=== PATIENT | female | born 1995 | race Caucasian/White ===

== ENCOUNTER → 2017-07-18 16:04 | Outpatient (CLI) | payer OTHER, SELFPAY ==
[2017-07-18 18:02] LABS: hCG Titer Quant., Serum 183 mIU/mL (<9 non-preg)
== END ==
PROVIDERS: Family Provider Family Medicine; PCP Family Medicine; Visit Provider Nurse Practitioner Women's Health
DX: Z34.90 Encounter for supervision of normal pregnancy, unspecified, unspecified trimester (principal)
CPT/HCPCS: 84702

== ENCOUNTER 2017-07-19 11:00 | Outpatient (RCR) | payer OTHER, SELFPAY ==
--- NOTE | 2017-06-08 10:55 | HP.PTEVAL_ITS ---
Patient's Visit Information JANICE GOODMAN is a 21 year old F referred to Physical Therapy by Manjeet Smart with a diagnosis of B PFitis, L knee pain.. Date of Evaluation: 06/08/17 Physical Therapist: Taj Ross DPT, OC - Visit Plan Frequency: 3x /Week Duration: 4-6 Weeks Plan: 3x/week for 2-3 to teach ITB stretch, hip flexor stretch, core and hip stab strength adn progress to HEP with pics. Pt to carry baby on opposite hip and monitor effects. Plan for patient to do stretch and strength at home after 2-3 weeks of PT adn f/u as needed. - Subjective Subjective: Has pain in L knee cap and bottom of L foot and HS. Mostly during the day adn worsens with activity, gone at rest. Sleep is good. Pain is daily and for over a year for knee, foot came back a month ago but has been group home project. Activities are normal, does not work outside of home but has baby. No exercises except stretching foot and HS - Pain L knee Pain Intensity (Out of 10): 5 Pain Intensity Range: 0, 8 L foot heel Pain Intensity (Out of 10): 6 Pain Intensity Range: 0, 8 - Objective Walks I without gait deviation but obvious weakness in trunk and hips. Holds baby on L hip all the time. Steps reciprocal with adduction at the hips slightly. Transfers I. Full aROM at hips and knees, mildly hypo tonic. Tightness present in gastroc and soleus and HS L >R and hip flexors and slightly in ITB. Weakness present in hips flexion 4, abd 3+, ext rotation, 3 + IR, ext 3+, core 3 extensors adn flexors. reflexes patella and achilles 2/3. sensation LE WNL to gross light touch. LB AROM WNL and painfree. Tender to touch maximally in B calcaneal PF attachments. Also with patellar grind in L knee adn mildly in L HS body. - Goals Goal 1:: I approp HEP for flex adn core/LE strength to limit pain. Goal Time Frame: 4-6 Weeks Goal 2:: pain in knee 50% improved adn PF 50% improved to 3/10 at worst . Goal Time Frame: 4-6 Weeks Goal 3:: Walk to do home cleaning without increased pain. Goal Time Frame: 4-6 Weeks - Rehabilitation Potential Physical Therapy Diagnosis: B PFitis and L knee pain from wekaness and tightness. Rehabilitation Potential: Fair - Anticipated Interventions Patient/Client Instruction: Educate patient on: Condition For the Purpose of:: To decrease pain Therapeutic Exercise to Include: Strength training, Flexibilty training, Dynamic Lumbar Stabilization For the Purpose of:: To decrease pain, To improve muscle performance and motor function, To improve ability of physical actions for home/community/work/leisure Thank you for the opportunity to evaluate your patient. For Medicare and Medicare HMO plans, please review the plan of care and approve it. It will need to be FAXED BACK to us at [phone] for Medicare purposes. Please let me know if there are questions or concerns regarding this plan of care. Physician Signature: Date:
--- NOTE | 2017-06-23 07:27 | HP.PTEVAL2_ITS ---
Patient's Visit Information JANICE GOODMAN is a 21 year old F referred to Physical Therapy by RAMOS Green with a diagnosis of B plantar fibromytosis and bilateral calcaneal heel spuring.. Date of Evaluation: 06/20/17 Physical Therapist: Dilip Kohli - Visit Plan Frequency: 2x /Week Duration: 4 Weeks Plan: Start with graston to bilateral plantar fascia, bilateral achilles tendon , aggressive fascial stretching and G/S complex stretching. Progress to HEP. - Subjective Subjective: Pt. is here today for her initial evaluation with diagnosis of bilateral plantar fibromatosis, bilateral calcaneal heal spuring and bilateral foot pain. This patient is known to this PT from previous PT episodes. Pt. reports having increased bilateral foot pain recently. She continues to wear her orthotics, but seems like her pain is increasing. Pt. is also being seen for knee and hip pain as well. Pt. reports increased pain with initial steps after sitting or sleeping and increased pain throughout the day. She is wearing proper foot wear with orthotics currently. Pt. reports pain starting at heel radiating down through bottom of foot. Pt. reports occassionally stretching. Pt. denies N/T in either LE. She has difficulty keeping up with her infant baby and work related activities secondary to pain. Increased pain with walking and descending steps. Decreased pain with rest. Pt. is hopeful to reduce symptoms in order to get back to all PLOF and recreational activities without issues. - Pain R heel and plantar surface of foot Intensity: 4 Pain Intensity Range: 2, 8 L heel and plantar surface of foot Intensity: 4 Pain Intensity Range: 2, 8 - Objective Objective: POSTURE: Pt. has slight pes planus in stance. Pt. has equal wt. shift between bilateral LEs. Pt. has normal achilles positioning. PALPATION: Pt. has increased pain to calcaneus medial and lateral of bilateral LES. Pt. has no pain at achilles tendon. Pt. has increased pain at plantar fascia origin and throughout plantar surface of foot. NEUROLOGICAL: Pt. has normal sensation througout bilateral LEs. Pt. has 2+ achilles and patellar DTR bilaterally. Pt. is able to rise on heels and toes without issues. Pt. has no visible weakness noted. ROM: R ankle- DF 11deg, PF 49deg, normal EVR and INV. R knee within normal ranges. L ankle- DF - 10deg, PF 52deg, normal EVR/INV. Normal knee ROM. MMT: Pt. has 5-/5 throughout R and L ankle. Marked instability in SLS ea. 5-/5 of bilateral Knee strength; hip- being addressed by alternate episode of PT currently. GAIT: Pt. has slight early heel off with gait, bilaterally. Pt. reports increased pain as she goes into forefoot rocker moment. STARIS: Pt. has increased symptoms with descending stairs with early heel off with descending. + windlass testing bilaterally loaded and unloaded. - Goals Goal 1:: Pt. to be I with HEP. Goal Time Frame: 4-6 Weeks Goal 2:: Pt. to have increased bilateral DF ROM by 5-8deg reducing stress applied to plantar fascia with ambulation. Goal Time Frame: 4-6 Weeks Goal 3:: Pt. ambulate unlimited distances without increase in B foot pain allowing for increased quality of life. Goal Time Frame: 4-6 Weeks Goal 4:: Pt. to negotiate steps without increase in symptoms allowing for increased ability to negotiate in home. Goal Time Frame: 4-6 Weeks Goal 5:: Pt. to resume all recreational walking and activities without increase in symptoms. Goal Time Frame: 4-6 Weeks - Rehabilitation Potential Rehabilitation Potential: Good - Anticipated Interventions Patient/Client Instruction: Educate patient on: Condition, Plan of Care, Risk Factors, Benefits of Fitness Program For the Purpose of:: To improve health and function, To foster healthy habits, To improve decision making, To facilitate caregiver knowledge, To improve self management, To prevent re-injury, To improve ability to perform tasks related to life management, To improve tolerance to ADL's Therapeutic Exercise to Include: Strength training, Agility training, Postural training, Flexibilty training, Passive ROM, Active ROM For the Purpose of:: To decrease pain, To increase ROM, To improve nutrient delivery to tissue, To increase oxygenation perfusion, To improve muscle performance and motor function, To improve ability to perform ADL's, To increase tolerance to activity/condition/position, To improve health of tissue, To decrease soft tissue restriction, To increase flexibility/ROM Manual Therapy Techniques to Include: Mobilization, Functional dry needling Comment: grasashley, deep friction For the Purpose of:: To decrease pain, To increase ROM, To improve nutrient delivery to tissue, To increase oxygenation perfusion, To improve muscle performance and motor function, To improve health of tissue, To decrease soft tissue restriction Iontophoresis (with Dexamethozone, with Acetic acid): Yes - possibly if not improving with stretching and graston For the Purpose of:: To decrease pain, To decrease swelling/inflammation, To increase ROM Thank you for the opportunity to evaluate your patient. For Medicare and Medicare HMO plans, please review the plan of care and approve it. It will need to be FAXED BACK to us at [phone] for Medicare purposes. Please let me know if there are questions or concerns regarding this plan of care. Physician Signature: Date:
--- NOTE | 2017-07-05 12:17 | HP.PTREVAL_ITS ---
CELESTE Hernandez RICHARD C It has been my pleasure to treat JANICE GOODMAN over the last 8 visits for B PFitis, L knee pain.. Please see the progress note below for an update on the physical therapy plan of care! Subjective: Upper leg is better in duration and intensity and frequency. Still gets it with weather changes. Aches in the L knee 11/15. Uses oil but not taking pain meds for it. Stretching and strengthening at home daily to every other day. Sleep is good. Dr. [place] on 07/19/17 Objective/Function: Still very weak in hips, emphasized long-term importance of strength to patient. Still positive L patellar grind but improving. No antalgia in gait but lots of slop at knees. Full aROM B knees and hips. improving flexibility in ITB and quads. Plan Plan: 3 more visits to teach WB hip and knee strength to tolerance with pics for HEP(inchworms, dips etc) Goals Goal 1:: I approp HEP for flex adn core/LE strength to limit pain. Goal Time Frame: 4-6 Weeks Goal Progress: Goal Met Goal 2:: pain in knee 50% improved adn PF 50% improved to 3/10 at worst . Goal Time Frame: 4-6 Weeks Goal Progress: Goal Met Goal 3:: Walk to do home cleaning without increased pain. Goal Time Frame: 4-6 Weeks Goal Progress: Goal Met Anticipated Interventions Patient/Client Instruction: Educate patient on: Condition For the Purpose of:: To decrease pain Therapeutic Exercise to Include: Strength training, Flexibilty training, Dynamic Lumbar Stabilization For the Purpose of:: To decrease pain, To improve muscle performance and motor function, To improve ability of physical actions for home/community/work/leisure Please do not hesitate to contact me at [phone] by phone or Fax: if you have questions or concerns regarding this new plan of care! Sincerely, Taj Ross, GALET, OC
--- NOTE | 2017-07-19 11:46 | HP.PTDCSUM ---
HP - PT D/C Summary It has been my pleasure to treat JANICE GOODMAN under orders from CELESTE Hernandez RICHARD C for the diagnosis of B PFitis, L knee pain. for a total of 11 visit(s). Discharge Date: 07/19/17 Please see the following information for a summary of their discharge status. - Subjective Subjective: is starting. Better knee and upper eg. No pain in 2 weeks. Been doing exercises and will try to keep it up. Still feels a little weak and can continue strengthening herself. Foot is still 6-7/10. Been wearing shoes. Sitting too long is problematic. Morning stil hurts. stretching immediately. No tbeen faithful with night splint. Orthoitcs 100%. . - Pain L knee Pain Intensity (Out of 10): 0 L foot heel Pain Intensity (Out of 10): 6 - Overall Improvement % Improvement: 90 - Objective Objective/Function: Pt walking without antalgia today. Has good ROM in LE joints and is I with continued home stretch and strengthening. Strength in LE hips and knees is 4- hips and 4 knees. OVERALL DOING CONSIDERABLY BETTER. READY TO BE DONE WITH PT AND FOCUS ON FARM. WILL CONTINUE HEP - Goals Goal 1:: I approp HEP for flex adn core/LE strength to limit pain. Goal Progress: Goal Met Goal 2:: pain in knee 50% improved adn PF 50% improved to 3/10 at worst . Goal Progress: Goal Met Goal 3:: Walk to do home cleaning without increased pain. Goal Progress: Goal Met - Plan Plan: D/C TO hep - D/C Information Discharge Comments: Pt doing well with knee and upper leg pain. Foot pain continues to be a problem and conservative treatment she is I with but will limit options here. Will continue HEP for stretching and strengthening. If there are questions or concerns regarding this patient's physical therapy, please feel free to call me at [phone]. Thank you for the referral of this patient. Sincerely, Taj Ross, DPT, OC
--- NOTE | 2017-07-19 11:52 | HP.PTDCS(2) ---
HP - PT D/C Summary (2) It has been my pleasure to treat JANICE GOODMAN under orders from CELESTE Hernandez RICHARD C for the diagnosis of B plantar fibromytosis and bilateral calcaneal heel spuring. for a total of 9 visit(s). Discharge Date: 07/19/17 Please see the following information for a summary of their discharge status. - Subjective Subjective: Foot is still hurting. Up to 7/10 intermittently. Worse with sitting too long and first thing upon arising. Is wearing night splint but hard to keep on. Doing stretches I at home. Is now . - Overall Improvement % Improvement: 10 - Objective Objective/Function/Assessment: Good ROM and no antalgia in gait. Tenderness persists B in heel. OVERALL , SLIGHTLY BETTER BUT NOT SIGNIFICANTLY. - Goals Patient Goals: Improve Mobility, Decrease Pain, Walk Normal, Improve ROM, Other Other Goals: get back to all recreational activities without pain. Goal 1:: Pt. to be I with HEP. Goal Progress: Goal Met Goal 2:: Pt. to have increased bilateral DF ROM by 5-8deg reducing stress applied to plantar fascia with ambulation. Goal Progress: Goal Met Goal 3:: Pt. ambulate unlimited distances without increase in B foot pain allowing for increased quality of life. Goal Progress: Not Progressing Goal 4:: Pt. to negotiate steps without increase in symptoms allowing for increased ability to negotiate in home. Goal Progress: Not Progressing Goal 5:: Pt. to resume all recreational walking and activities without increase in symptoms. Goal Progress: Not Progressing - Plan Plan: D/C, Pt will continue HEP and f/u with foot doctor Tuesday. - D/C Information Discharge Comments: Back to doctor for other medical steps. Patient is now eliminating option of iontophoresis(says she is 4 weeks and newly known to her) If there are questions or concerns regarding this patient's physical therapy, please feel free to call me at [phone]. Thank you for the referral of this patient. Sincerely, Taj Ross, DPT, OC
== END 2017-07-19 14:24 | disposition home or self-care (01) ==
LOC: PT 11:00
PROVIDERS: Family Provider Family Medicine; PCP Family Medicine; Visit Provider Family Medicine
DX: M72.2 Plantar fascial fibromatosis (principal); M77.31 Calcaneal spur, right foot; M77.32 Calcaneal spur, left foot; M79.671 Pain in right foot; M79.672 Pain in left foot; M21.6X1 Other acquired deformities of right foot; M21.6X2 Other acquired deformities of left foot
CPT/HCPCS: 97033; 97110; 97140; 97162; 97530

== ENCOUNTER → 2017-07-20 16:03 | Outpatient (CLI) | payer OTHER, SELFPAY ==
[2017-07-20 18:19] LABS: hCG Titer Quant., Serum 493 mIU/mL (<9 non-preg)
== END ==
PROVIDERS: Family Provider Family Medicine; PCP Family Medicine; Visit Provider Nurse Practitioner Women's Health
DX: Z34.90 Encounter for supervision of normal pregnancy, unspecified, unspecified trimester (principal)
CPT/HCPCS: 36415; 84702

== ENCOUNTER → 2017-08-09 16:17 | Outpatient (CLI) | payer OTHER, SELFPAY ==
[2017-08-09 21:48] LABS: Chlamydia Trachomatis by PCR Negative (Negative); Neisserai gonorrhoeae by PCR Negative (Negative); Probe Check PASS; Sample Adequacy Control PASS; Specimen Processing Control PASS
== END ==
PROVIDERS: Family Provider Family Medicine; PCP Family Medicine; Visit Provider Obstetrics & Gynecology
DX: Z34.90 Encounter for supervision of normal pregnancy, unspecified, unspecified trimester (principal)
CPT/HCPCS: 87086; 87491; 87591

== ENCOUNTER 2017-09-01 11:30 | Outpatient (RCR) | payer OTHER, SELFPAY ==
--- NOTE | 2017-07-27 14:02 | HP.PTEVAL_ITS ---
Patient's Visit Information JANICE GOODMAN is a 21 year old F referred to Physical Therapy by RAMOS CHESTER with a diagnosis of B plantarfascitis. Date of Evaluation: 07/27/17 Physical Therapist: Cedric Love PT, - Visit Plan Frequency: 2x /Week Duration: 4 Weeks Plan: B foot DTR, stretching, PROM and mobilizations to ankle/foot, bike, and HEP - Subjective Subjective: Pt reports she has had B foot pain for over a year. Pt reports she has had PT in the past, but it only helps temporarily. Pt reports he Dr is now going to fit her for orthotics, and wants her to cont with PT. R foot is worse than L. Pt reports she has had xrays which reveal heal spurs on B feet, but pt notes she is unable to have surgery at this time secondary to being . No T or N in feet. Pt reports she doesnt wear shoes in the house, and is going to try to wear them more often to help with the pain. 5/10 at rest, 10/10 by the end of the day. - Pain B feet Pain Intensity (Out of 10): 5 Pain Intensity Range: 10 - Objective Neuro: B LE sensation is WNL at this time. Palpation: Pt is very tender along the ant portion of the heal. Very tender along the PF. ROM: R ankle DF= 12, PF = 60; L ankle DF= 9, PF= 60. MMT: B ankles 5/5 throughout. Gait: Pt ambulates with early pronation during stance phase. Pt lacks HS - Goals Goal 1:: Decrease B foot pain x 50% to aid with tosha for ambulation Goal Time Frame: 2-4 Weeks Goal 2:: Increase B ankle DF ROM x 5 degrees to aid with restoring nornal gait pattern. Goal Time Frame: 2-4 Weeks Goal 3:: I with HEP Goal Time Frame: 2-4 Weeks - Rehabilitation Potential Physical Therapy Diagnosis: B foot pain, diff with prolonged walking, and limited ankle DF ROM secondary to B LE plantarfascitis. Rehabilitation Potential: Good - Anticipated Interventions Patient/Client Instruction: Educate patient on: Condition, Plan of Care For the Purpose of:: To improve self management Manual Therapy Techniques to Include: Massage, Mobilization, Soft tissue mobilization For the Purpose of:: To decrease pain, To increase ROM Cryotherapy (ice pack, ice massage): Yes Thermo therapy (hot pack): Yes Thank you for the opportunity to evaluate your patient. For Medicare and Medicare HMO plans, please review the plan of care and approve it. It will need to be FAXED BACK to us at [phone] for Medicare purposes. Please let me know if there are questions or concerns regarding this plan of care. Physician Signature: Date:
--- NOTE | 2017-09-01 11:50 | HP.PTDCSUM ---
HP - PT D/C Summary It has been my pleasure to treat JANICE GOODMAN under orders from RAMOS ALONSO, for the diagnosis of B plantarfascitis for a total of 9 visit(s). Discharge Date: Please see the following information for a summary of their discharge status. - Subjective Subjective: Pt reports no pain today. He has been having her rub them out which is helping - Pain B feet Pain Intensity (Out of 10): 0 - Objective Objective/Function: Pain is now 0/10. pt is I with HEP. B ankle DF ROM= 15 degrees. Rx goals achieved - Goals Goal 1:: Decrease B foot pain x 50% to aid with tosha for ambulation Goal Progress: Goal Met Goal 2:: Increase B ankle DF ROM x 5 degrees to aid with restoring nornal gait pattern. Goal Progress: Goal Met Goal 3:: I with HEP Goal Progress: Goal Met - Plan Plan: Discharged - D/C Information If there are questions or concerns regarding this patient's physical therapy, please feel free to call me at [phone]. Thank you for the referral of this patient. Sincerely, Cedric Love, PT,
== END 2017-09-01 16:14 | disposition home or self-care (01) ==
LOC: PT 11:30
PROVIDERS: Family Provider Family Medicine; PCP Family Medicine
DX: M72.2 Plantar fascial fibromatosis (principal); M77.31 Calcaneal spur, right foot; M77.32 Calcaneal spur, left foot; M79.671 Pain in right foot; M79.672 Pain in left foot; M21.6X2 Other acquired deformities of left foot
CPT/HCPCS: 97110; 97140; 97162; 97530

== ENCOUNTER → 2017-11-04 12:42 | Outpatient (CLI) | payer OTHER, SELFPAY ==
--- NOTE | 2017-11-04 12:44 | US_ITS ---
STUDY: SECOND AND THIRD TRIMESTER OBSTETRICAL ULTRASOUND REASON FOR EXAM: Female, 22 years old. Routine survey. LMP: June 20, 2017. TECHNIQUE: Transabdominal and Transvaginal PRIOR ULTRASOUND: None. FINDINGS: There is a single intrauterine fetus. The fetus is in a cephalic presentation. There is demonstrated cardiac activity with a heart rate of 147 bpm. There is a normal amniotic fluid volume. The largest amniotic fluid pocket measures 3.7 cm x 2.2 cm. The amniotic fluid index (LEONIDES) is normal. The placenta is fundal in location. There are Grade 1 placental changes. The cervix measures 4.1 cm in length. The adnexal regions are not visualized. BIOMETRY: BPD: 4.54 cm: 19 weeks, 6 days HC: 16.63 cm: 19 weeks, 3 days AC: 13.73 cm: 9 weeks, 2 days FL: 3.08 cm: 19 weeks, 4 days CI: 79% FL/BPD: 68% FL/HC: FL/AC: 22% HC/AC: 1.21 age by current US: 19 weeks, 4 days. DEBBY by current US: March 27, 2018. Estimated weight: 289 grams, +/- 42 grams, 34 %. Age by LMP: 19 weeks, 4 days. DEBBY by LMP: March 27, 2018. ANATOMY: Gender: Male Cranium: Normal lateral ventricles. Normal choroid plexus. Normal cerebellum. Normal cisterna magna. Normal face, nose and lips. Chest: Normal 4-chamber heart. Abdomen/Pelvis: Normal diaphragm. Normal stomach. Normal abdominal wall. Normal cord insertion. Normal 3 vessel cord. Normal kidneys. Normal bladder. Spine: Normal cervical spine. Normal thoracic spine. Normal lumbar spine. Normal sacrum. Extremities: Normal bilateral upper extremities. Normal bilateral lower extremities. US/OB Anatomy Scan IMPRESSION: Single live intrauterine gestation with a mean gestational age of 19 weeks and 4 days. Electronically Signed: Jitendra Chester MD at 14:53 EDT Tel [phone], Service support ,
== END ==
PROVIDERS: Family Provider Family Medicine; PCP Family Medicine; Visit Provider Obstetrics & Gynecology
DX: Z34.90 Encounter for supervision of normal pregnancy, unspecified, unspecified trimester (principal)
CPT/HCPCS: 76805

== ENCOUNTER → 2018-02-07 13:22 | Outpatient (CLI) | payer OTHER, SELFPAY ==
--- NOTE | 2018-02-07 13:30 | US_ITS ---
STUDY: SECOND AND THIRD TRIMESTER OBSTETRICAL ULTRASOUND - LIMITED REASON FOR EXAM: Female, 22 years old. FGSFetal growthSReason for Exam-OB (US) LMP: PRIOR ULTRASOUND: None. TECHNIQUE: Transabdominal TECHNICAL QUALITY: Adequate. FINDINGS: There is a single intrauterine fetus. The fetus is in a cephalic presentation. There is demonstrated cardiac activity with a heart rate of 144 bpm. There is a normal amniotic fluid volume. The largest amniotic fluid pocket measures 5.2 cm. The amniotic fluid index (LEONIDES) is 9.8 cm. The placenta is posterior in location and is not low lying. There are Grade 1 placental changes. The cervix measures 4.7 cm in length. BIOMETRY: BPD: 7.2: 29 weeks, 2 days HC: 28.0: 30 weeks, 6 days AC: 25.5: 29 weeks, 5 days FL: 6.0: 31 weeks, 4 days Age by LMP: 33 weeks, 1 days. DEBBY by LMP: 03/27/2018. age by prior US: 30 weeks, 3 days. DEBBY by prior US: 04/15/2018. age by current US: 33 weeks, 1 days. DEBBY by current US: 03/27/2018. Estimated weight: 1552 grams, +/- 227 grams, 2 percentile. US/OB Limited With Biometrics IMPRESSION: Estimated weight: 1552 grams, +/- 227 grams, 2 percentile. Electronically Signed: Dana Wright MD at 13:47 EDT Tel , Service support ,
== END ==
PROVIDERS: Family Provider Family Medicine; PCP Family Medicine; Visit Provider Obstetrics & Gynecology
DX: O09.93 Supervision of high risk pregnancy, unspecified, third trimester (principal); D68.61 Antiphospholipid syndrome; Z3A.00 Weeks of gestation of pregnancy not specified
CPT/HCPCS: 76816

== ENCOUNTER → 2018-03-15 17:21 | Outpatient (CLI) | payer OTHER, SELFPAY ==
[2018-03-15 21:24] LABS: Group B Strep DNA By PCR Negative (Negative); Internal Control PASS; Probe Check PASS; Specimen Processing Control PASS
== END ==
PROVIDERS: Family Provider Family Medicine; PCP Family Medicine; Referring Provider Obstetrics & Gynecology; Visit Provider Obstetrics & Gynecology
DX: O09.90 Supervision of high risk pregnancy, unspecified, unspecified trimester (principal); Z3A.00 Weeks of gestation of pregnancy not specified
CPT/HCPCS: 87081; 87653

== ENCOUNTER 2018-03-17 15:00 | Inpatient (IN) | payer OTHER, SELFPAY ==
--- NOTE | 2018-03-17 11:14 | US_ITS ---
STUDY: SECOND AND THIRD TRIMESTER OBSTETRICAL ULTRASOUND - LIMITED REASON FOR EXAM: Female, 22 years old. Routine survey. LMP: June 20, 2017. PRIOR ULTRASOUND: Comparison is made with prior examination dated February 07, 2018. TECHNIQUE: Transabdominal TECHNICAL QUALITY: Adequate. FINDINGS: There is a single intrauterine fetus. The fetus is in a cephalic presentation. There is demonstrated cardiac activity with a heart rate of 133 bpm. There is decreased amniotic fluid volume consistent with oligohydramnios. The largest amniotic fluid pocket measures 1.2 cm x 0.8 cm. The amniotic fluid index (LEONIDES) is 1.75 cm. The placenta is posterior in location and is not low lying. There are Grade 2 placental changes. The cervix is not well seen for measurement due to position of the head. BIOMETRY: BPD: 8.9 cm: 36 weeks, 1 days HC: 31.9 cm: 36 weeks, 0 days AC: 30.0 cm: 34 weeks, 0 days FL: 7.1 cm: 36 weeks, 2 days Age by LMP: 38 weeks, 4 days. DEBBY by LMP: March 27, 2018. age by prior US: 34 weeks, 4 days. DEBBY by prior US: April 15, 2019. age by current US: 35 weeks, 5 days. DEBBY by current US: April 16, 2019. Estimated weight: 2572 grams, +/- 376 grams, 4 percentile. The results were communicated to the referring physician. US/OB Limited With Biometrics IMPRESSION: Single live intrauterine gestation with a mean gestational age of 35 weeks and 4 days. The measurements obtained today. Within normal expected range. Oligohydramnios. Electronically Signed: Jitendra Chester MD at 15:10 EST Tel [phone], Service support ,
[2018-03-17 15:29] VITALS: BMI 28.5
[2018-03-17 17:19] LABS: Hematocrit 38.2 % (37-47); Hemoglobin 12.2 g/dl (12.0-15.0); Mean Corp Hgb Conc 31.9 g/gl (32-36); Mean Corpuscular Hgb 29.3 pg (27.0-32.0); Mean Corpuscular Volume 91.6 fL (81-99); Mean Platelet Vol. 10.7 fl (6.2-12.0); Platelet Count 189 K/mm3 (150-450); RBC Distribution Width CV 14.5 % (11.6-14.6); RBC Distribution Width SD 48.2 fl (35.1-43.9); Red Blood Count 4.17 M/mm3 (4.2-5.4); White Blood Count 14.5 K/mm3 (4.4-11.0)
[2018-03-17 17:24] LABS: Scan Indicated on CBC? Y/N NO
[2018-03-17] MEDS: 0.9% Normal Saline 100 ML IV.SOLN. INTRA-UTER (17:45)
[2018-03-17] MEDS: miSOPROStol 25 MCG TABLET PO ×2 (18:10→22:06)
[2018-03-17] MEDS: 0.9% Saline Lock 10 ML Syringe IV (18:10)
--- NOTE | 2018-03-17 18:15 | PCM.HP.OB ---
History Date of Admission: 05/14/15 Final DEBBY: 03/27/18 Final DEBBY Source: LMP Gestational age: 38 Weeks and 4 Days History of this : This is a 22 year-old, G [4], P [1021], at 38 weeks gestational age. by LMP. Patient presented to L&D from office visit due to low amniotic fluid. LEONIDES was 1cm today and instructed to have induction of labor. OB during and comanagement of care as patient had desired home . out of town and available for care. Patient refused care with male provider and [place] [employer] practice. Patient called [facility] and asked to be managed by our practice for induction of labor. Upojn arrival irregular uterine contractions. Denies leakage of fluid, vaginal bleeding, increased pain or other concerns. Patient has , mother and Julissa Collier present. Medical History: Medical History (Last Reviewed 03/15/18 @ 11:46 by Greta Escalona) POTS (postural orthostatic tachycardia syndrome) (Chronic) R00.0, I95.1 Prothrombin gene mutation (Chronic) D68.52 heterozygous. lovenox Asthma (Chronic) J45.909 GERD (gastroesophageal reflux disease) (Chronic) K21.9 Anxiety and depression (Chronic) buspar Anaphylaxis due to hymenoptera venom (Resolved) T63.481A, T78.2XXA Headache (Resolved) R51 Palpitations (Resolved) R00.2 Syncope and collapse (Resolved) R55 Surgical History: Surgical History (Last Reviewed 03/15/18 @ 11:46 by Greta Escalona) History of appendectomy Z98.890, Z90.49 History of tonsillectomy Z98.890, Z90.89 Hx of cholecystectomy Z98.890, Z90.49 Allergies cephalexin [From Keflex] Allergy (Mild, Verified 03/15/18 11:45) itching clarithromycin [From Biaxin] Allergy (Verified 03/15/18 11:45) Hives fish derived Allergy (Verified 03/15/18 11:45) Shortness of breath hydrocodone bitartrate [From Vicodin] Allergy (Verified 03/15/18 11:45) Itching iodine Allergy (Verified 03/15/18 11:45) Rash ketorolac tromethamine [From Toradol] Allergy (Verified 03/15/18 11:45) Shortness of breath latex Allergy (Verified 03/15/18 11:45) Shortness of breath Penicillins Allergy (Verified 03/15/18 11:45) Shortness of breath shellfish derived Allergy (Verified 03/15/18 11:45) Angioedema venom-honey bee [bee venom (honey bee)] Allergy (Verified 03/15/18 11:45) Shortness of breath verapamil Allergy (Verified 03/15/18 11:45) Other flu vaccine Allergy (Unknown, Uncoded 03/15/18 11:45) unknown Home Medications: Home Medications Vits [Prenatabs FA] 1 tab PO DAILY 08/06/15 Sertraline HCl [Zoloft] 150 mg PO DAILY 08/06/15 Magnesium Oxide [Magnesium] 400 mg PO DAILY 12/24/15 buspirone 15 mg tablet 15 mg PO BID 06/16/17 aspirin 81 mg tablet,delayed release 81 mg PO DAILY 07/18/17 enoxaparin 40 mg/0.4 mL subcutaneous syringe 40 mg SC DAILY 07/26/17 promethazine 12.5 mg tablet 12.5 mg PO Q6H PRN #60 tab 11/17/17 loratadine 10 mg disintegrating tablet 10 mg PO DAILY 01/05/18 ondansetron HCl 4 mg tablet 4 mg PO Q4H PRN tab 01/05/18 vitamin B complex tablet 1 tab PO DAILY 01/05/18 Albuterol IH (ProAir) [Proair Hfa] 2 puff INHALATION Q4H PRN 03/17/18 Nebivolol HCl [Bystolic (Beta Mylene)] 5 mg PO BID 03/17/18 Smoking Status: Never smoker Alcohol: None Heart Tracin, moderate variability, accels, no decels, Category 1 TOCO: Irregular, mild History Past Pregnancies: Past Pregnancies Delivery Date Name GA/Weeks Outcome Route Weight Gender Labor Length Anesthesia Delivery Location Provider FOB Labs: Patient declined labs during Patient states she is A positive GC/CT negative Expected Infant Delivery Method: Spontaneous Vaginal Review of Systems Constitutional: Denies: Chills, Fever, Weight Change Cardiovascular: Denies: Chest Pain, Palpitations Respiratory: Denies: Cough, Shortness of breath at rest, Sputum production Gastrointestinal: Denies: Abdominal Pain, Nausea, Vomiting Genitourinary: Denies: Dysuria Neurological: Denies: Numbness, Tingling, Focal weakness Psychiatric: Denies: Homicidal Ideations, Suicidal Ideations Physical Exam General: Alert, Oriented x3, No apparent distress HEENT: Atraumatic, Normocephalic. Negative for: Thyromegaly, Lymphadenopathy Cardiovascular: Regular rate, Regular Rhythm, No murmurs Lungs: Clear to auscultation, No rhonchi, No wheeze Abdomen: Bowel Sounds Present, Gravid Extremities:: No edema Neurological: Deep Tendon Reflexes 2+/4 and Symmetrical. Negative for: Clonus RN MENTAL HEALTH: Normal external genitalia Estimated gestational size: Appropriate for gestational size Presentation: Cephalic Cervix Dilation (cm): 1 Station: -2 Effacement (%): 50 Assessment/Plan All Active Problems (Last Reviewed 03/15/18 @ 11:46 by Greta Escalona) (Acute) Supervision of high-risk (Acute) Antiphospholipid antibody syndrome (Acute) Anaphylaxis due to hymenoptera venom (Resolved) Headache (Resolved) Palpitations (Resolved) Syncope and collapse (Resolved) This is a 22 year-old, G [4], P [1021], at 38 weeks gestational age for induction of labor due to oligohydramnios Category 1 FHT P: 1) Admit for induction of labor. Reviewed options fo rcervical ripening and PO cytotec and fiore bulb, patient agrees to plan of care. 2) IV saline lock and routine labs. 3) Reviewed plan. Recommend Pitocin for active 3rd stage management, patient declines at this time. 4) collaborative physician, updated on patient status. Violet Lewis, DETECTIVE SUPERVISOR, CNM
--- NOTE | 2018-03-17 18:19 | HP.PCM_ITS ---
History Date of Admission: 05/14/15 Final DEBBY: 03/27/18 Final DEBBY Source: LMP Gestational age: 38 Weeks and 4 Days History of this : This is a 22 year-old, G [4], P [1021], at 38 weeks gestational age. by LMP. Patient presented to L&D from office visit due to low amniotic fluid. LEONIDES was 1cm today and instructed to have induction of labor. OB during and comanagement of care as patient had desired home . Zully Ley out of town and available for care. Patient refused care with male provider and [place] [employer] practice. Patient called [facility] and asked to be managed by our practice for induction of labor. Upojn arrival irregular uterine contractions. Denies leakage of fluid, vaginal bleeding, increased pain or other concerns. Patient has , mother and Julissa Collier present. Medical History: Medical History (Last Reviewed 03/15/18 @ 11:46 by Greta Escalona) POTS (postural orthostatic tachycardia syndrome) (Chronic) R00.0, I95.1 Prothrombin gene mutation (Chronic) D68.52 heterozygous. lovenox Asthma (Chronic) J45.909 GERD (gastroesophageal reflux disease) (Chronic) K21.9 Anxiety and depression (Chronic) buspar Anaphylaxis due to hymenoptera venom (Resolved) T63.481A, T78.2XXA Headache (Resolved) R51 Palpitations (Resolved) R00.2 Syncope and collapse (Resolved) R55 Surgical History: Surgical History (Last Reviewed 03/15/18 @ 11:46 by Greta Escalona) History of appendectomy Z98.890, Z90.49 History of tonsillectomy Z98.890, Z90.89 Hx of cholecystectomy Z98.890, Z90.49 Allergies cephalexin [From Keflex] Allergy (Mild, Verified 03/15/18 11:45) itching clarithromycin [From Biaxin] Allergy (Verified 03/15/18 11:45) Hives fish derived Allergy (Verified 03/15/18 11:45) Shortness of breath hydrocodone bitartrate [From Vicodin] Allergy (Verified 03/15/18 11:45) Itching iodine Allergy (Verified 03/15/18 11:45) Rash ketorolac tromethamine [From Toradol] Allergy (Verified 03/15/18 11:45) Shortness of breath latex Allergy (Verified 03/15/18 11:45) Shortness of breath Penicillins Allergy (Verified 03/15/18 11:45) Shortness of breath shellfish derived Allergy (Verified 03/15/18 11:45) Angioedema venom-honey bee [bee venom (honey bee)] Allergy (Verified 03/15/18 11:45) Shortness of breath verapamil Allergy (Verified 03/15/18 11:45) Other flu vaccine Allergy (Unknown, Uncoded 03/15/18 11:45) unknown Home Medications: Home Medications Vits [Prenatabs FA] 1 tab PO DAILY 08/06/15 Sertraline HCl [Zoloft] 150 mg PO DAILY 08/06/15 Magnesium Oxide [Magnesium] 400 mg PO DAILY 12/24/15 buspirone 15 mg tablet 15 mg PO BID 06/16/17 aspirin 81 mg tablet,delayed release 81 mg PO DAILY 07/18/17 enoxaparin 40 mg/0.4 mL subcutaneous syringe 40 mg SC DAILY 07/26/17 promethazine 12.5 mg tablet 12.5 mg PO Q6H PRN #60 tab 11/17/17 loratadine 10 mg disintegrating tablet 10 mg PO DAILY 01/05/18 ondansetron HCl 4 mg tablet 4 mg PO Q4H PRN tab 01/05/18 vitamin B complex tablet 1 tab PO DAILY 01/05/18 Albuterol IH (ProAir) [Proair Hfa] 2 puff INHALATION Q4H PRN 03/17/18 Nebivolol HCl [Bystolic (Beta Mylene)] 5 mg PO BID 03/17/18 Smoking Status: Never smoker Alcohol: None Heart Tracin, moderate variability, accels, no decels, Category 1 TOCO: Irregular, mild History Past Pregnancies: Past Pregnancies Delivery Date Name GA/Weeks Outcome Route Weight Infant Gender Labor Length Anesthesia Delivery Location Provider FOB Labs: Patient declined labs during Patient states she is A positive GC/CT negative Expected Infant Delivery Method: Spontaneous Vaginal Review of Systems Constitutional: Denies: Chills, Fever, Weight Change Cardiovascular: Denies: Chest Pain, Palpitations Respiratory: Denies: Cough, Shortness of breath at rest, Sputum production Gastrointestinal: Denies: Abdominal Pain, Nausea, Vomiting Genitourinary: Denies: Dysuria Neurological: Denies: Numbness, Tingling, Focal weakness Psychiatric: Denies: Homicidal Ideations, Suicidal Ideations Physical Exam General: Alert, Oriented x3, No apparent distress HEENT: Atraumatic, Normocephalic. Negative for: Thyromegaly, Lymphadenopathy Cardiovascular: Regular rate, Regular Rhythm, No murmurs Lungs: Clear to auscultation, No rhonchi, No wheeze Abdomen: Bowel Sounds Present, Gravid Extremities:: No edema Neurological: Deep Tendon Reflexes 2+/4 and Symmetrical. Negative for: Clonus GRAPHITE MILL OPERATOR: Normal external genitalia Estimated gestational size: Appropriate for gestational size Presentation: Cephalic Cervix Dilation (cm): 1 Station: -2 Effacement (%): 50 Assessment/Plan All Active Problems (Last Reviewed 03/15/18 @ 11:46 by Greta Escalona) (Acute) Supervision of high-risk (Acute) Antiphospholipid antibody syndrome (Acute) Anaphylaxis due to hymenoptera venom (Resolved) Headache (Resolved) Palpitations (Resolved) Syncope and collapse (Resolved) This is a 22 year-old, G [4], P [1021], at 38 weeks gestational age for induction of labor due to oligohydramnios Category 1 FHT P: 1) Admit for induction of labor. Reviewed options fo rcervical ripening and PO cytotec and fiore bulb, patient agrees to plan of care. 2) IV saline lock and routine labs. 3) Reviewed plan. Recommend Pitocin for active 3rd stage management, patient declines at this time. 4) collaborative physician, updated on patient status. Violet Lewis, COLOR BLENDER, CNM
[2018-03-17] MEDS: DiphenhydrAMINE 50 MG/ML Syringe 25 MG IV (19:52)
[2018-03-18] MEDS: 0.9% Saline Lock 10 ML Syringe IV (01:40)
[2018-03-18] MEDS: Lactated Ringers 1,000 ML 50 ML IV (01:40)
--- NOTE | 2018-03-18 07:23 | PN.OBGYN_ITS ---
Subjective: Coping well with nitrous. 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 Feeling increased prssure. Objective: FHT 145, moderate variability, accels, variable decels, Category 2 TOCO: every 2-3 minutes, strong 6-7/100%/-1, BBOW. AROM for thick meconium fluid, dark brown - Physical Exam Weight: 181 lb 14.102 oz Body Mass Index (BMI) 28.5 Intake and Output for Last 24 Hours 03/16/18 03/17/18 03/18/18 23:59 23:59 23:59 Output Total 450 / 450 Balance -450 / -450 Laboratory Tests Past 24 Hrs 03/17/18 03/17/18 17:06 17:06 WBC 14.5 H RBC 4.17 L Hgb 12.2 Hct 38.2 MCV 91.6 MCH 29.3 MCHC 31.9 L RDW 14.5 RDW Differential 48.2 H Plt Count 189 MPV 10.7 Blood Type A POSITIVE Antibody Screen NEGATIVE Medical Necessity - Tobacco Use Smoking Status: Never smoker Assessment/Plan All Active Problems (Last Reviewed 03/15/18 @ 11:46 by Greta Escalona) (Acute) Supervision of high-risk (Acute) Antiphospholipid antibody syndrome (Acute) Anaphylaxis due to hymenoptera venom (Resolved) Headache (Resolved) Palpitations (Resolved) Syncope and collapse (Resolved) A:Active Labor Progressing FHT Category 2 P: 1) Progressing, anticipate vaginal delivery soon. 2) Peds notified of meconium stained fluid and to be present for delivery
--- NOTE | 2018-03-18 08:13 | PCM.OB.VAG ---
- Problem List (1) Vaginal delivery Status: Acute (2) Meconium stained amniotic fluid, delivered, current hospitalization Status: Acute Vaginal Delivery Maternal Presentation: Medically Indicated Induction - Oligohydramnios Method of Induction: Viera Bulb, Cytotec Amniotic Membrane Rupture Type: Artificial Amniotic Fluid Description: Thick meconium Final DEBBY: 03/27/18 Final DEBBY Source: LMP Gestational age: 38 Weeks and 5 Days Date of Procedure: 03/18/18 Pre-Operative Diagnosis: Induction of Labor Post-Operative Diagnosis: Surgery/ Procedure Performed: Spontaneous Vaginal Delivery Type of Anesthesia: None Description of Procedure: Progressed to complete and strong urge to push. of viable male infant over intact perineum. APGARS 5, 7, 8. Weight pending. Infant placed skin to skin on maternal abdomen. Stimulated with respiratory effort, suctioned mouth and nares for secretions, good tone and color. Remained skin to skin. Cord clamping delayed. Cord clamped and cut after pulsations ceased by FOB. Patient declined active management and Pitocin . Expectant management for 3rd stage. Placenta delivered via meghana, intact, 3 vessel cord. Fundus firm, 150ml EBL. Perineum inspect and intact. Taken to radiant warmer for retracting and secretions. present. Recovered and placed back skin to skin. Mom and baby stable, family bonding well. Planning to breastfeed. notified of delivery. Presentation: Vertex Placental Delivery Description: Spontaneous Placenta Disposition: [facility] Cord Vessel Description: 3 Vessels Estimated Blood Loss: 150ml A gender: Male (1 minute): 5 (5 minute): 7 Episiotomy Description: None Laceration: None Medications given after delivery: - - Expectant management. Patient declines Pitocin for 3rd stage. Complications: None
[2018-03-18] MEDS: Ibuprofen 600 MG Tablet PO ×2 (09:57→20:29)
[2018-03-18] MEDS: Enoxaparin 40 MG/0.4 ML Syringe SC (10:03)
[2018-03-18] MEDS: Sertraline 50 MG Tablet 150 MG PO (11:15)
[2018-03-18 11:33] VITALS: BP 96/53; PULSE 89; RESP 14; TEMP 36.8
[2018-03-18] MEDS: Acetaminophen 500 MG Tablet 1000 MG PO (13:35)
[2018-03-18 16:00] VITALS: BP 107/62; PULSE 84; RESP 16; TEMP 36.6
[2018-03-18 20:20] VITALS: BP 95/60; PULSE 79; RESP 18; TEMP 36.6
[2018-03-19] VITALS: BP 101/64; PULSE 75; RESP 18; TEMP 35.5
[2018-03-19 04:38] VITALS: BP 103/62; PULSE 68; RESP 20; TEMP 36.5
[2018-03-19 08:00] VITALS: BP 104/61; PULSE 75; RESP 16; TEMP 36.6; O2SAT 99
--- NOTE | 2018-03-19 08:42 | PN.OBGYN_ITS ---
Patient Problems: Active and Suspected Problems (Last Reviewed 03/15/18 @ 11:46 by Greta Escalona) Vaginal delivery (Acute) Meconium stained amniotic fluid, delivered, current hospitalization (Acute) Subjective: Patient doing well. Tolerating regular diet without nausea or vomiting. Pain controlled. Ambulating and voiding without difficulty. Denies lightheadedness, dizziness, chest pain, shortness of breath, leg pain. Formula feeding. is in special care nursery. - Physical Exam General: Alert, Oriented x3 HEENT: Atraumatic Lungs: - - No increased resp effort Abdomen: Soft, Non Tender, - - FF@U-1 Extremities: No edema, No Calf Tenderness Skin: No rashes Neurological: Neuro grossly intact Psych/Mental Status: Normal Affect, Appropriate Vital Signs Temp Pulse Resp BP Pulse Ox 97.9 F 75 16 104/61 99 03/19/18 08:00 03/19/18 08:00 03/19/18 08:00 03/19/18 08:00 03/19/18 08:00 Oxygen Delivery Method Room Air Weight: 181 lb 14.102 oz Body Mass Index (BMI) 28.5 Intake and Output for Last 24 Hours 03/17/18 03/18/18 03/19/18 23:59 23:59 23:59 Output Total 450 / 450 500 / 500 Balance -450 / -450 -500 / -500 Medical Necessity - Tobacco Use Smoking Status: Never smoker Assessment/Plan All Active Problems (Last Reviewed 03/15/18 @ 11:46 by Greta Escalona) Vaginal delivery (Acute) Meconium stained amniotic fluid, delivered, current hospitalization (Acute) (Acute) Supervision of high-risk (Acute) Antiphospholipid antibody syndrome (Acute) Anaphylaxis due to hymenoptera venom (Resolved) Headache (Resolved) Palpitations (Resolved) Syncope and collapse (Resolved) PPD#1 s/p - AF, VSS - Hx of prothrombin gene mutation: Continue Lovenox - Hx of depression and anxiety: Continue Zoloft. Restarted Buspar today per deandra calabrese request as she is not planning on - Formula feeding - Baby in special care nursery - Dispo: Routine PP care. D/c home today
[2018-03-19] MEDS: Sertraline 50 MG Tablet 150 MG PO (10:38)
[2018-03-19] MEDS: busPIRone 15 MG TABLET PO ×2 (10:38→20:10)
[2018-03-19] MEDS: Enoxaparin 40 MG/0.4 ML Syringe SC (10:39)
[2018-03-19] MEDS: Ibuprofen 600 MG Tablet PO ×2 (10:49→20:09)
[2018-03-19 13:41] VITALS: BP 97/54; PULSE 84; RESP 16; TEMP 36.3; O2SAT 100
[2018-03-19] MEDS: Acetaminophen 500 MG Tablet 1000 MG PO (17:38)
[2018-03-19 20:00] VITALS: BP 88/53; PULSE 82; RESP 16; TEMP 36.3; O2SAT 98
--- NOTE | 2018-03-19 21:09 | NURSING ---
Buspar given early at 2009 per patient request to stay on home schedule.
[2018-03-20] MEDS: Acetaminophen 500 MG Tablet 1000 MG PO (00:51)
[2018-03-20 01:05] VITALS: BP 98/60; PULSE 83; RESP 16; TEMP 36.4; O2SAT 100
[2018-03-20] MEDS: Ibuprofen 600 MG Tablet PO ×2 (07:37→14:10)
[2018-03-20 08:54] VITALS: BP 101/51; PULSE 86; RESP 18; TEMP 36.2; O2SAT 100
[2018-03-20] MEDS: busPIRone 15 MG TABLET PO (09:17)
[2018-03-20] MEDS: Sertraline 50 MG Tablet 150 MG PO (09:17)
[2018-03-20] MEDS: Enoxaparin 40 MG/0.4 ML Syringe SC (09:18)
--- NOTE | 2018-03-20 12:09 | PCM.PN.OB ---
Patient Problems: Active and Suspected Problems (Last Reviewed 03/15/18 @ 11:46 by Greta Escalona) Vaginal delivery (Acute) Meconium stained amniotic fluid, delivered, current hospitalization (Acute) Subjective: Doing well per patient and nursing staff. Pumping breastmilk and supplementing with formula. Denies headache, shortness of breath, chest pain, increased vaginal bleeding or clots, leg pain or increased pain. Baby in special care nursery due to hypoglycemia. Discharge today if baby is released. - Physical Exam General: Alert, Oriented x3, Cooperative HEENT: Atraumatic, Normocephalic Oral: Moist Mucosa Lungs: Clear to auscultation, No rhonchi, No wheeze Cardiovascular: Regular rate, Regular Rhythm, No murmurs Abdomen: Bowel Sounds Present, - - Fundus firm 2 below U Extremities: No edema, - - Anitra's negative Psych/Mental Status: Normal Affect, Appropriate Comment: lochia rubra, small amount Vital Signs Temp Pulse Resp BP Pulse Ox 97.1 F L 86 18 101/51 L 100 03/20/18 08:54 03/20/18 08:54 03/20/18 08:54 03/20/18 08:54 03/20/18 08:54 Oxygen Delivery Method Room Air Weight: 181 lb 14.102 oz Body Mass Index (BMI) 28.5 Intake and Output for Last 24 Hours 03/18/18 03/19/18 03/20/18 23:59 23:59 23:59 Output Total 500 / 500 Balance -500 / -500 Medical Necessity - Tobacco Use Smoking Status: Never smoker Assessment/Plan All Active Problems (Last Reviewed 03/15/18 @ 11:46 by Greta Escalona) Vaginal delivery (Acute) Meconium stained amniotic fluid, delivered, current hospitalization (Acute) (Acute) Supervision of high-risk (Acute) Antiphospholipid antibody syndrome (Acute) Anaphylaxis due to hymenoptera venom (Resolved) Headache (Resolved) Palpitations (Resolved) Syncope and collapse (Resolved) A: PPD #2 P: 1) Routine PP and breast/bottle feeding instructions given. 2) D/C home today. If baby not released, will transfer to hotel status 3) Continue Lovenox for 6 weeks 4) Return for 6 week visit with .
--- NOTE | 2018-03-20 12:23 | PCM.DCVAG ---
Discharge Diet: No Restrictions Discharge Activity: Return to Normal Activity, May not drive while taking narcotic pain medications., May Shower, May Take a Tub Bath May resume sexual activity in: 4-6 weeks Weight Bearing Status: Full weight bearing Lifting Restrictions: Less then 25lbs, increase as tolerated Call your doctor if your incision/area has: Continuous Slow Oozing, Sudden Increased Bleeding, Increased Pain/ Swelling, Increased Redness, Foul Smelling Discharge Call your doctor if you observe: Fever of 101 or Higher, Numbness or Tingling, Inability to urinate, Inability to have a bowel movement, Using more than one pad per hour, Shortness of breath, Chest pain, Increased palpitations (irregular heartbeat), Calf discomfort, Uncontrolled pain Additional Instructions: If you experience any of the following, contact your healthcare provider. Bleeding that soaks a pad every hour for 2 hours Fever 100.4 or higher Unrelieved incision or abdominal pain Swelling, redness, discharge or bleeding from your incision or episiotomy site Your incision begins to separate Problems urinating (including inability to urinate or burning while urinating). Visual changes Severe headache Flu-like symptoms Pain or redness in one of both of your breasts Pain, warmth, tenderness or swelling in your legs, especially the calf area Frequent nausea and vomiting Symptoms of depression or anxiety If you experience any of the following, call 911 or go to the nearest Emergency Room. Chest pain Problems breathing Seizure activity Partial or complete paralysis of a body part, slurred speech, weakness or drooping of the face, or a sudden inability to walk or hold your balance Allergies/Adverse Reactions: Allergies cephalexin [From Keflex] Allergy (Mild, Verified 03/15/18 11:45) itching clarithromycin [From Biaxin] Allergy (Verified 03/15/18 11:45) Hives fish derived Allergy (Verified 03/15/18 11:45) Shortness of breath hydrocodone bitartrate [From Vicodin] Allergy (Verified 03/15/18 11:45) Itching iodine Allergy (Verified 03/15/18 11:45) Rash ketorolac tromethamine [From Toradol] Allergy (Verified 03/15/18 11:45) Shortness of breath latex Allergy (Verified 03/15/18 11:45) Shortness of breath Penicillins Allergy (Verified 03/15/18 11:45) Shortness of breath shellfish derived Allergy (Verified 03/15/18 11:45) Angioedema venom-honey bee [bee venom (honey bee)] Allergy (Verified 03/15/18 11:45) Shortness of breath verapamil Allergy (Verified 03/15/18 11:45) Other flu vaccine Allergy (Unknown, Uncoded 03/15/18 11:45) unknown Medications to take at Discharge Vits [Prenatabs FA ] 1 tab PO DAILY 08/06/15 Sertraline HCl [Zoloft] 150 mg PO DAILY 08/06/15 Magnesium Oxide [Magnesium] 400 mg PO DAILY 12/24/15 buspirone 15 mg tablet 15 mg PO BID 06/16/17 enoxaparin 40 mg/0.4 mL subcutaneous syringe 40 mg SC DAILY 07/26/17 vitamin B complex tablet 1 tab PO DAILY 01/05/18 Albuterol IH (ProAir) [Proair Hfa] 2 puff INHALATION Q4H PRN 03/17/18 Nebivolol HCl [Bystolic (Beta Mylene)] 5 mg PO BID 03/17/18 Acetaminophen [Tylenol] 1,000 mg PO Q8H PRN PRN tablet 03/20/18 Please Follow Up With: Aline Ovalle MD When: Call to make an appointment with your doctor in 6 weeks. Primary Care Physician: Allen Smart MD [Primary Care Provider] - Test Results: Test results from this visit will be discussed in further detail at your follow-up appointment, if applicable.
--- NOTE | 2018-03-20 12:26 | DCINST_ITS ---
Discharge Diet: No Restrictions Discharge Activity: Return to Normal Activity, May not drive while taking narcotic pain medications., May Shower, May Take a Tub Bath May resume sexual activity in: 4-6 weeks Weight Bearing Status: Full weight bearing Lifting Restrictions: Less then 25lbs, increase as tolerated Call your doctor if your incision/area has: Continuous Slow Oozing, Sudden Increased Bleeding, Increased Pain/ Swelling, Increased Redness, Foul Smelling Discharge Call your doctor if you observe: Fever of 101 or Higher, Numbness or Tingling, Inability to urinate, Inability to have a bowel movement, Using more than one pad per hour, Shortness of breath, Chest pain, Increased palpitations (irregular heartbeat), Calf discomfort, Uncontrolled pain Additional Instructions: If you experience any of the following, contact your healthcare provider. * Bleeding that soaks a pad every hour for 2 hours * Fever 100.4 or higher * Unrelieved incision or abdominal pain * Swelling, redness, discharge or bleeding from your incision or episiotomy site * Your incision begins to separate * Problems urinating (including inability to urinate or burning while urinat ing). * Visual changes * Severe headache * Flu-like symptoms * Pain or redness in one of both of your breasts * Pain, warmth, tenderness or swelling in your legs, especially the calf area * Frequent nausea and vomiting * Symptoms of depression or anxiety If you experience any of the following, call 911 or go to the nearest Emergency Room. * Chest pain * Problems breathing * Seizure activity * Partial or complete paralysis of a body part, slurred speech, weakness or drooping of the face, or a sudden inability to walk or hold your balance Allergies/Adverse Reactions: Allergies cephalexin [From Keflex] Allergy (Mild, Verified 03/15/18 11:45) itching clarithromycin [From Biaxin] Allergy (Verified 03/15/18 11:45) Hives fish derived Allergy (Verified 03/15/18 11:45) Shortness of breath hydrocodone bitartrate [From Vicodin] Allergy (Verified 03/15/18 11:45) Itching iodine Allergy (Verified 03/15/18 11:45) Rash ketorolac tromethamine [From Toradol] Allergy (Verified 03/15/18 11:45) Shortness of breath latex Allergy (Verified 03/15/18 11:45) Shortness of breath Penicillins Allergy (Verified 03/15/18 11:45) Shortness of breath shellfish derived Allergy (Verified 03/15/18 11:45) Angioedema venom-honey bee [bee venom (honey bee)] Allergy (Verified 03/15/18 11:45) Shortness of breath verapamil Allergy (Verified 03/15/18 11:45) Other flu vaccine Allergy (Unknown, Uncoded 03/15/18 11:45) unknown Medications to take at Discharge Vits [Prenatabs FA ] 1 tab PO DAILY 08/06/15 Sertraline HCl [Zoloft] 150 mg PO DAILY 08/06/15 Magnesium Oxide [Magnesium] 400 mg PO DAILY 12/24/15 buspirone 15 mg tablet 15 mg PO BID 06/16/17 enoxaparin 40 mg/0.4 mL subcutaneous syringe 40 mg SC DAILY 07/26/17 vitamin B complex tablet 1 tab PO DAILY 01/05/18 Albuterol IH (ProAir) [Proair Hfa] 2 puff INHALATION Q4H PRN 03/17/18 Nebivolol HCl [Bystolic (Beta Mylene)] 5 mg PO BID 03/17/18 Acetaminophen [Tylenol] 1,000 mg PO Q8H PRN PRN tablet 03/20/18 Please Follow Up With: Aline Ovalle MD When: Call to make an appointment with your doctor in 6 weeks. Primary Care Physician: Allen Smart MD [Primary Care Provider] - Test Results: Test results from this visit will be discussed in further detail at your follow- up appointment, if applicable.
[2018-03-20 14:00] VITALS: BP 102/69; PULSE 84; RESP 18; TEMP 36.3; O2SAT 100
--- NOTE | 2018-03-20 15:05 | CASEMGMT ---
Social Work Assessment Labor and Delivery Unit Date and time of Intervention: 03-20-18 at 1505. Reason for Referral: Infant admitted into the [facility]; Maternal history of depression and anxiety Referral Source: vacuum tank tender and nursing staff History obtained from: Medical record and mother of baby (MOB) and father of baby (FOB). Educated MOB that as this service writer is the social worker delinquency prevention for hospital of delivery labor and delivery unit, for continuity of care of families while on the SCN, this service writer also provides social work to the SCN Household composition: MOB Sherman Muniz, FOB Thierry Muniz, and older daughter Celine Muniz. Plan for Dio to live in this home. MOB and FOB report home situation as safe and adequate. Patient's parent/guardian status: MOB, age 22, and FOB have been for 4.5 years. Privately, MOB denies any form of abuse, control, or intimidation in this relationship. MOB and FOB now have 2 children together. Minor Children: Celine , born 3..17 and Dio, born .02.23. Medical History: MOB is G3, P1 to 2 after delivering Dio. care starting in the firs trimester and appearing adequate overall though a gap in care when MOB had been planning on a home . Chart indicates baby with IUGR and SGA at . Baby born weighing 2470 grams and Apgars 5-7-8 at 1-5-10 minutes of life respectively. . Educational Status: MOB graduated high school, denies any issues with reading, writing, or learning comprehension. Health Care Coverage: [facility] Financial Status: FOB works as head svp research & ebusiness operations for [employer]. MOB does not work outside of the home. Infant Supplies: Parents report to have needed supplies for home going including car seat, bassinet, pack-n-play, rock- n-play clothing, diapers, wipes, bottles, breast pump and some formula if needed as a back up. MOB reports to have sleep space and car seat for Celine as well. Childcare/Caregiver(s): MOB and then help from FOB when home. Transportation: No reported issues. Both parents drive. Programs/Agencies Involved: No agency involvement such as JFS or WIC. Family accepting of information on WIC, just in case the addition of Dio changes family's qualification (prior to Dio did not qualify financially). MOB denies any current or past children services involvement. No legal history reported either. Behavioral Health Issues: MOB with reported history of depression, anxiety and depression. It is reported that MOB does have a history of some medicine induced psychosis a couple of years ago, was hospitalized and resolved after about 3 days. MOB denies any psychosis after of Celine. MOB reports some thoughts of harm to self during the psychosis, though no intent, plan or action. MOB denies any other History of thoughts of self harm outside the episode of psychosis. MOB reports has been on Zoloft and Buspirone during this and plans to continue on this medicine after delivery. MOB and FOB report that MOB is active with a psychiatrist in [place], Jael Vergara, for medication management. MOB and FOB report that FOB usually goes with MOB to psychiatry appointments so is aware of doctor recommendations for care. MOB denies any history of drug abuse or dependence, no illicit drug use history, no tobacco use, and denies alcohol use. No drug screens noted in Maternal or records. Family Stressors: Closely spaced pregnancies, baby in [facility], and maternal mental health history. Support Systems: FOB, parents, baby's paternal grandmother, friends, and MOB's processing associate. FOB will be home for a few days after home going, and then baby's grandparents will be around to help out as well. Assessment Met with MOB and FOB together and then with MOB privately. MOB and FOB both engaging, cooperative, and pleasant during social work visit. Both parents participated in conversation, FOB appearing respectful to MOB as evidenced by not taking over conversation and listening when MOB spoke. MOB presenting as supportive to MOB. Privately, MOB maintains that FOB is a good support. MOB and FOB report to have adequate support from family at home, report to have needed supplies for baby, and MOB is aware of risk for depression. MOB planning to stay connected with psychiatrist for medication management in the period. No reports of thoughts of harm to others, self, and no reports of any psychosis at this time or during . MOB reports to feel connected to the baby and looking forward to taking the baby home. No report of concerns by nursing staff. MOB accepting of resources offered for the community. Plan MOB and baby to home when ready for discharge. [facility] resource packet given depression packet given along with outpatient providers for counseling [facility] packet given -ROSANNA Camara, OCCUPATIONAL HEALTH NURSE SUPERVISOR
== END 2018-03-20 16:40 | disposition home or self-care (01) | DRG 806 ==
LOC: WP 15:24
PROVIDERS: Admitting Provider Obstetrics & Gynecology; Family Provider Family Medicine; PCP Family Medicine; Referring Provider Obstetrics & Gynecology; Visit Provider Obstetrics & Gynecology
DX: O41.03X0 Oligohydramnios, third trimester, not applicable or unspecified (principal); O99.12 Other diseases of the blood and blood-forming organs and certain disorders involving the immune mechanism complicating childbirth; Z37.0 Single live birth; D68.52 Prothrombin gene mutation; Z3A.38 38 weeks gestation of pregnancy; O99.344 Other mental disorders complicating childbirth; F41.8 Other specified anxiety disorders; J45.909 Unspecified asthma, uncomplicated; O77.0 Labor and delivery complicated by meconium in amniotic fluid
CPT/HCPCS: 59025; 59050; 76816; 85027; 86850; 86900; 99218; J7050; J7120; A4216; G0378

== ENCOUNTER 2018-05-05 09:00 | Outpatient (RCR) | payer OTHER, SELFPAY ==
--- NOTE | 2018-03-28 14:06 | HP.PTEVAL ---
Patient's Visit Information JANICE GOODMAN is a 22 year old F referred to Physical Therapy by Manjeet Smart with a diagnosis of B plantarfascitis. 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 Pt reports she has been treated for it in the past which helped, but it always comes back. Pt reports she just delivered her son 10 days ago, and notes the past nine months of weight gain has caused her pain to return. Pt reports she was not able to sleep last night due to pain. Pt reports she is wearing orthotics in her shoes which do help some, but pt notes any prolonged ambulation results in severe pain. Pt reports no T or N in LE's. Pt reports she has not had any xrays taken at this time. - Pain B plantarfascitis Pain Intensity (Out of 10): 6 Pain Intensity Range: 10 - Objective Neuro: B LE sensation is WNL to light touch. B achilles reflex= 2/3. Palpation: B ant/plantar aspect of B heels is very sore. Pt is also sore throughout the distribution of the plantarfascia. No obvious deformity. Ankle ROM: L ankle DF= 8, R ankle PF= 8 degrees. MMT: B ankles 5/5 throughout. No leg length discrepancy - Goals Goal 1:: Decrease B foot pain x 50% to aid with sleep Goal Time Frame: 4-6 Weeks Goal 2:: Increase B plantarflexion ROM x 5-10 degrees to aid with decreasing pain Goal Time Frame: 4-6 Weeks Goal 3:: I with HEP Goal Time Frame: 4-6 Weeks - Rehabilitation Potential Physical Therapy Diagnosis: Pt has B foot pain, limited DF ROM, and intol for prolonged ambulation Rehabilitation Potential: Good - Anticipated Interventions Patient/Client Instruction: Educate patient on: Condition, Plan of Care For the Purpose of:: To improve self management Therapeutic Exercise to Include: Strength training, Flexibilty training, Dynamic Lumbar Stabilization For the Purpose of:: To decrease pain, To increase ROM Manual Therapy Techniques to Include: Soft tissue mobilization For the Purpose of:: To decrease pain Thank you for the opportunity to evaluate your patient. For Medicare and Medicare HMO plans, please review the plan of care and approve it. It will need to be FAXED BACK to us at [phone] for Medicare purposes. Please let me know if there are questions or concerns regarding this plan of care. Physician Signature: Date:
--- NOTE | 2018-05-08 08:49 | HP.PTREVAL ---
Allen Smart MD, It has been my pleasure to treat JANICE GOODMAN over the last 8 visits for B plantarfascitis. Please see the progress note below for an update on the physical therapy plan of care! Subjective: Pt. reports I am about 65% better.' Pt. reports being HEP compliant and still has pain with prolonged standing. Objective/Function: Pt. tolerated all PT without adverse reaction. Pt. has improved ROM had decreased tenderness to touch. Pt. is progressing, but slowly. I would like her to continue [facility] PT for two more visits wtih focus on improved intrinsic strength. Pt. to continue working on her HEP and add in intrinsic strength to reduce over pronation with gait/standing. Plan Plan: Extend POC x2 more visits. Goals Goal 1:: Decrease B foot pain x 50% to aid with sleep Goal Time Frame: 4-6 Weeks Goal Progress: Progressing Goal 2:: Increase B plantarflexion ROM x 5-10 degrees to aid with decreasing pain Goal Time Frame: 4-6 Weeks Goal Progress: Goal Met Goal 3:: I with HEP Goal Time Frame: 4-6 Weeks Goal Progress: Progressing Anticipated Interventions Patient/Client Instruction: Educate patient on: Condition, Plan of Care For the Purpose of:: To improve self management Therapeutic Exercise to Include: Strength training, Flexibilty training, Dynamic Lumbar Stabilization For the Purpose of:: To decrease pain, To increase ROM Manual Therapy Techniques to Include: Soft tissue mobilization For the Purpose of:: To decrease pain Please do not hesitate to contact me at [phone] by phone or if you have questions or concerns regarding this new plan of care! Sincerely, Dilip Kohli DPT
--- NOTE | 2018-06-22 07:29 | HP.PT.NRP ---
HP - Discharge Summary (1) - Patient Information JANICE GOODMAN was seen in my office for initial evaluation on 03/28/18. The following Plan of Care was established for this patient: Initial Frequency: 2x /Week Initial Duration: 4 Weeks - Anticipated Interventions Patient/Client Instruction: Educate patient on: Condition, Plan of Care For the Purpose of:: To improve self management Therapeutic Exercise to Include: Strength training, Flexibilty training, Dynamic Lumbar Stabilization For the Purpose of:: To decrease pain, To increase ROM Manual Therapy Techniques to Include: Soft tissue mobilization For the Purpose of:: To decrease pain This patient was last seen in our office 05/05/19. Pertinent comments regarding their Physical therapy will appear below: Pt. was seen for her bilateral plantar fasciatis. Pt. was treated wtih manual, stretching, intrinsic stretching. Pt. had made progress with bilateral feet, not totally abolishment of her symptoms, but improved. Pt. was to take her exercises and HEP and progress on her own. Pt. wa to follow up if needed. Pt. has not been seen in 6 weeks and will be DC from PT at this point in time. At this point I will be discontinuing this patient from physical therapy. I would be happy to see this patient again in the future if found appropriate by the physician. Thank you! GALE MccoyT
== END 2018-05-05 19:00 | disposition home or self-care (01) ==
LOC: PT 09:00
PROVIDERS: Family Provider Family Medicine; PCP Family Medicine; Referring Provider Family Medicine; Visit Provider Family Medicine
DX: M72.2 Plantar fascial fibromatosis (principal)
CPT/HCPCS: 97110; 97140; 97162

== ENCOUNTER 2018-08-25 13:00 | Outpatient (RCR) | payer OTHER, SELFPAY ==
[2018-06-05 15:41] VITALS: BMI 25.8
--- NOTE | 2018-07-06 09:56 | HP.PTEVAL_ITS ---
Patient's Visit Information JANICE GOODMAN is a 22 year old F referred to Physical Therapy by Ave Hackett MD with a diagnosis of B plantar faciatis. Date of Evaluation: 06/28/18 Physical Therapist: Dilip Kohli DPT - Visit Plan Frequency: 2x /Week Duration: 4 Weeks Plan: Start with manual/graston, US, achilles stretching. Add in hip strengthening and foot intrinsic strengthening. - Subjective Findings: Pt. is here today for her initial evaluation with diagnosis of bilateral planatar fasciatis. Pt. is known to this PT as I have seen her before for similar issues. Pt. report having intermittent john, but is now mostly constant during wbing activitis. Pt. wears orthotics, but contiues to have increased pain. Pt. has reynauds as well. Pt. repors not stretching as much due to time constraints. Pt. is hopeful to decreae her pain allowing for her to be active with her children. - Pain B feet Pain Intensity (Out of 10): 6 - Objective POSTURE: Pt. has increased over pronation in stance, worst in SLS. Pt. has normal hip positioning, but has anterior tilt of her pelvis. PALPATION: Pain throughout plantar fascia and achilles tendon bilaterally. NEURO: normal. ROM: TIght with DF, but only limited by 8deg bilat. Pt. has normal knee and feet ROM otherwise. MMT: 5/5 throughout ankle and knees, 4/5 hip ER/IR and glute streng th. GAIT: Pt. has increased pronation with walking, increased pain, and increased tibial interior rotation. SPECIAL testing: positive windlass sign bilaterally loaded and unloaded. - Goals Goal 1:: Pt. to be I with HEP. Goal Time Frame: 4-6 Weeks Goal 2:: Pt. to have increased foot intrinsic, glute med and glute max strength increased by 1/2 grade bilaterally. Goal Time Frame: 4-6 Weeks Goal 3:: Pt. to walk without increase in symptoms with normal gait pattern. Goal Time Frame: 4-6 Weeks Goal 4:: Pt. to complete all of her recreational activities witout increase in symptoms. - Rehabilitation Potential Physical Therapy Diagnosis: Pt. has signsa nd symptoms consistent with bilateral plantar fasciatis. Pt. would benefit from stretching and modalities to reduce sy mptoms. Rehabilitation Potential: Good - Anticipated Interventions Patient/Client Instruction: Educate patient on: Condition, Plan of Care, Risk Factors, Benefits of Fitness Program For the Purpose of:: To facilitate caregiver knowledge, To improve self management, To prevent re-injury, To improve ability to perform tasks related to life management, To improve tolerance to ADL's Therapeutic Exercise to Include: Strength training, Power training, Endurance training, Postural training, Flexibilty training, Passive ROM, Active ROM Manual Therapy Techniques to Include: Trigger point massage, Mobilization, Passive ROM For the Purpose of:: To decrease pain, To decrease swelling/inflammation, To increase ROM Ultrasound (thermal/non thermal): Yes For the Purpose of:: To decrease pain, To decrease swelling/inflammation, To increase ROM Thank you for the opportunity to evaluate your patient. For Medicare and Medicare HMO plans, please review the plan of care and approve it. It will need to be FAXED BACK to us at [phone] for Medicare purposes. For Medicare only, by signing this I certify the plan of care. Please let me know if there are questions or concerns regarding this plan of care. Physician Signature: Date:
--- NOTE | 2018-09-06 13:36 | HP.PTEVAL2_ITS ---
Patient's Visit Information JANICE GOODMAN is a 22 year old F referred to Physical Therapy by Ave Hackett MD with a diagnosis of Tension HS, B UT strain. Date of Evaluation: 09/06/18 Physical Therapist: Dilip Kohli DPT - Visit Plan Frequency: 2x /Week Duration: 4 Weeks Plan: Start with cervical distraction, T spine mobs, DN to sub occipital space. Progress postural strengthening as tolerated. - Subjective Findings: Pt. is here today for her initial evaluation with diagnosis of REYNA and neck pain. Pt. reports increased pain at the base of her skull on and off for the past few years, but has become worse since having her first child , ~2 years ago. Pt. reports no radiating UE pain, no N/T. Pt. has no changes in vision. She has had no imaging as well. Pt. reprots increased pain with lifting objects, increased pain throughout the day and increased pain with ADLs. Nothing, time seems to reduce symptoms. Pt. is hiopeful to reduce symptoms in order to increase quality of life. - Pain REYNA Intensity: 2 Pain Intensity Range: 1, 6 - Objective Objective: POSTURE: PT. has rounded shoulder, FH posture. INcreased CT junction flexion and increased upper cervical ext. PALPATION: Pt. has increased pain at sub occipital space. PT. has pain at cervical erector spinea dn BUT and bilateral levator scapulea. NEURO: normal throughout. ROM: CERVICAL SPINE: flexion nil loss NE, ext mod loss icnrease NW, rotation nil loss bialt NE, SB nil loss bilat NE. Pt. has normal UE ROm without increase in symptoms. MMT: pt. has full B shoulder strength. NO increase in symptoms. - Special Tests C/S Radiculapathy - Left Upper limb tension test: Negative C/S Radiculapathy - Right Upper limb tension test: Negative C/S Radiculapathy - Left Spurlings: Negative C/S Radiculapathy - Right Spurlings: Negative C/S Radiculapathy - Left Cervical distraction: Negative C/S Radiculapathy - Right Cervical distraction: Negative C/S Radiculapathy - Left Relief test: Negative C/S Radiculapathy - Right Relief test: Negative C/S Radiculapathy - Valsalva: Negative Sharp Navneet: Negative Vertebral Artery Test: Negative Alar Ligament Test: Negative - Goals Goal 1:: Pt. to be I with HEP. Goal Time Frame: 2-4 Weeks Goal 2:: Pt. to have increased cervical ROM to full without increase in symptoms. Goal Time Frame: 2-4 Weeks Goal 3:: Pt. to have decreased REYNA to 0-2/10 in intensity. Goal Time Frame: 4-6 Weeks Goal 4:: Pt. to have decreased frequency of REYNA to x1 per week. Goal Time Frame: 4-6 Weeks Goal 5:: Pt. to demonstrate improved posture in clinic to reduce suboccipital tension. Goal Time Frame: 4-6 Weeks - Rehabilitation Potential Physical Therapy Diagnosis: Pt. has signs and symptoms consistent with REYNA due to poor posture. Pt. would benefit from PT to increase posture and decrease sub occipital tension Rehabilitation Potential: Good - Anticipated Interventions Patient/Client Instruction: Educate patient on: Condition, Plan of Care, Risk Factors, Benefits of Fitness Program For the Purpose of:: To facilitate caregiver knowledge, To improve self management, To prevent re-injury, To improve ability to perform tasks related to life management Therapeutic Exercise to Include: Strength training, Power training, Postural training, Flexibilty training, Passive ROM, Active ROM, Dynamic Lumbar Stabilization, Yennifer Exercises, Scapular Strength/Stabilization For the Purpose of:: To decrease pain, To increase ROM, To improve nutrient delivery to tissue, To increase oxygenation perfusion, To improve muscle performance and motor function, To improve ability to perform ADL's, To increase tolerance to activity/condition/position, To decrease level of supervision to perform tasks, To increase flexibility/ROM Manual Therapy Techniques to Include: Mobilization, Passive ROM, Functional dry needling, Soft tissue mobilization For the Purpose of:: To decrease pain, To increase ROM, To improve nutrient delivery to tissue, To increase oxygenation perfusion, To improve muscle performance and motor function Thank you for the opportunity to evaluate your patient. For Medicare and Medicare HMO plans, please review the plan of care and approve it. It will need to be FAXED BACK to us at [phone] for Medicare purposes. For Medicare only, by signing this I certify the plan of care. Please let me know if there are questions or concerns regarding this plan of care. Physician Signature: Date:_
--- NOTE | 2019-01-15 09:58 | HP.PT.NRP ---
HP - Discharge Summary (1) - Patient Information JANICE GOODMAN was seen in my office for initial evaluation on 06/28/18. The following Plan of Care was established for this patient: Initial Frequency: 2x /Week Initial Duration: 4 Weeks - Anticipated Interventions Patient/Client Instruction: Educate patient on: Condition, Plan of Care, Risk Factors, Benefits of Fitness Program For the Purpose of:: To facilitate caregiver knowledge, To improve self management, To prevent re-injury, To improve ability to perform tasks related to life management, To improve tolerance to ADL's Therapeutic Exercise to Include: Strength training, Power training, Endurance training, Postural training, Flexibilty training, Passive ROM, Active ROM Manual Therapy Techniques to Include: Trigger point massage, Mobilization, Passive ROM For the Purpose of:: To decrease pain, To decrease swelling/inflammation, To increase ROM Ultrasound (thermal/non thermal): Yes For the Purpose of:: To decrease pain, To decrease swelling/inflammation, To increase ROM This patient was last seen in our office 08/25/18. Pertinent comments regarding their Physical therapy will appear below: Pt. was treated for her plantar fasciatis. Pt. has not been seen in several months and will be DC from PT at this point intime. At this point I will be discontinuing this patient from physical therapy. I would be happy to see this patient again in the future if found appropriate by the physician. Thank you! GALE MccoyT
--- NOTE | 2019-01-15 09:59 | HP.PT.NRP(2) ---
HP - Discharge Summary (2) - Patient Information JANICE GOODMAN was seen in my office for initial evaluation on 09/06/18. The following Plan of Care was established for this patient: Initial Frequency: 2x /Week Initial Duration: 4 Weeks Plan from Re-Evaluation: Start with cervical distraction, T spine mobs, DN to sub occipital space. Progress postural strengthening as tolerated. - Anticipated Interventions Patient/Client Instruction: Educate patient on: Condition, Plan of Care, Risk Factors, Benefits of Fitness Program For the Purpose of:: To facilitate caregiver knowledge, To improve self management, To prevent re-injury, To improve ability to perform tasks related to life management Therapeutic Exercise to Include: Strength training, Power training, Postural training, Flexibilty training, Passive ROM, Active ROM, Dynamic Lumbar Stabilization, Yennifer Exercises, Scapular Strength/Stabilization For the Purpose of:: To decrease pain, To increase ROM, To improve nutrient delivery to tissue, To increase oxygenation perfusion, To improve muscle performance and motor function, To improve ability to perform ADL's, To increase tolerance to activity/condition/position, To decrease level of supervision to perform tasks, To increase flexibility/ROM Manual Therapy Techniques to Include: Mobilization, Passive ROM, Functional dry needling, Soft tissue mobilization For the Purpose of:: To decrease pain, To increase ROM, To improve nutrient delivery to tissue, To increase oxygenation perfusion, To improve muscle performance and motor function This patient was last seen in our office . Pertinent comments regarding their Physical therapy will appear below: Pt. was seen for her initial evaluation and has not been seen in several months. Pt. willbe DC from PT at this point intime. At this point I will be discontinuing this patient from physical therapy. I would be happy to see this patient again in the future if found appropriate by the physician. Thank you! Dilip Kohli, GALET
== END 2018-08-25 19:00 | disposition home or self-care (01) ==
LOC: PT 13:00
PROVIDERS: Family Provider Family Medicine; PCP Family Medicine; Referring Provider Family Medicine; Visit Provider Family Medicine
DX: M72.2 Plantar fascial fibromatosis (principal); M79.671 Pain in right foot; M79.672 Pain in left foot; M21.6X9 Other acquired deformities of unspecified foot; M77.31 Calcaneal spur, right foot; M77.32 Calcaneal spur, left foot
CPT/HCPCS: 97035; 97110; 97140; 97161

== ENCOUNTER → 2018-11-29 | Outpatient (CLI) | payer OTHER, SELFPAY ==
[2018-08-01 15:37] VITALS: BMI 26.3
[2018-10-30 14:12] VITALS: BMI 24.4
--- NOTE | 2018-11-29 09:55 | NEURO ---
NCS and/or EMG Patient Report Ordering Doctor: nura, DATE OF SERVICE: 11/29/18 This is a bilateral lower extremity nerve conduction study and a left lower extremity limited EMG performed on this 23-year-old female with a history of pots, pain in both feet which is worse if she is standing but improves if she is supine however she states that the pain never resolves completely. She says she had a negative MRI of her feet. Bilateral lower extremity sensory motor nerve conduction studies performed demonstrating normal sural sensory and medial plantar responses bilaterally. The motor responses from the common peroneal nerves and the tibial nerves bilaterally are within normal range as are bilateral common peroneal and tibial F waves and H reflexes from the tibial nerves bilaterally. Left lower extremity needle electromyography was performed. 4 muscles were evaluated after which the test was discontinued due to brief loss of consciousness. Muscles evaluated included the extensor digitorum brevis, abductor hallucis, medial gastrocnemius and anterior tibialis. These muscles demonstrate normal insertional activity with absence of pathologic spontaneous activity. Motor unit potential recruitment pattern amplitude was normal in all muscles tested. After the last muscle was evaluated the patient closed her eyes and was briefly unresponsive. Pulse was strong and respirations were unchanged. She then opened her eyes after less than 30 seconds, and stated that she felt normal. She was observed in the neuro lab in the supine position for approximately 15 minutes after which she felt normal and was observed to be normal and ambulated safely and was released to home. Impression: This is a normal electrophysiologic study of the bilateral lower extremities. Study was terminated after only for muscles due to brief loss of consciousness however this appears to be nonphysiologic.
== END | disposition home or self-care (01) ==
PROVIDERS: Family Provider Family Medicine; PCP Family Medicine
DX: G62.9 Polyneuropathy, unspecified (principal)
CPT/HCPCS: 95886; 95911

== ENCOUNTER 2019-01-26 08:28 | Outpatient (RCR) | payer OTHER, SELFPAY ==
[2019-01-20 09:41] VITALS: BMI 24.4
--- NOTE | 2019-01-26 12:13 | HP.PTEVAL_ITS ---
Patient's Visit Information JANICE GOODMAN is a 23 year old F referred to Physical Therapy by RAMOS ALONSO with a diagnosis of Crutch training, pre surgical tarsal tunnel/fasciatomy. Date of Evaluation: 01/26/19 Physical Therapist: Dilip Kohli DPT - Visit Plan Frequency: 1x/Week Duration: 1 Week Plan: Pt. was trained in proper use of B axillary crutches for walking, stairs and curb negotaition with maintaining NWBing. Pt. able to demonstrate properly back to this PT. Pt. will be DC awaiting surgery. - Subjective Findings: Pt. is here today for her initial evaluation with need for crutch training in preperation for L foot tarsal tunnel and plantar fasciatomy surgery. Pt. is to hvae surgery on 01/31/19. Pt. has been seen previously for her plantar fascia issues. Pt. reports never using crutches previously and is unsure of how to use them. Pt. is to be on crutches for several weeks post OP and has multiple stairs to negotiate in her home. - Pain Bilateral plantar fascia Pain Intensity (Out of 10): 5 Pain Intensity Range: 3, 5 - Objective POSTURE: Pt. is able bodied indiviual. Pt. has slight FH posture, but is able to bear wt. through her UEs evenly. Crutches adjusted to fit properly for height and arm postioning. SHe has 5/5 strength thoughout UE and LEs. No functional weaknesses noted. GAIT: Pt. is able to ambulate with crutches with NWBing in 1 LE proper with crutches. I educated her in proper use to limit axilliar issues and safe ambulation. Pt. able to properly demonstrate abck to PT. STAIRS: I demonstrated proper technique to her ascending and dsecending, both with B crutches and with 1 Crutch and 1 HR. Pt. able to demonstrate properly back to PT this date. - Goals Goal 1:: Pt. to be trained in proper use of B axillary crutches. Goal Time Frame: 1 day Goal 2:: Pt. to demonstrate proper use of B crutches with walking, curb negotaition and stair negotaition with NWB. Goal Time Frame: 1 day - Rehabilitation Potential Physical Therapy Diagnosis: Pt. was training in proper ctutch use with walking, curb negotion and stair negotiation. Pt. was able to properly demonstrate back to this PT. Pt. was given handouts for carry over. Pt. reports full understanding. Rehabilitation Potential: Excellent - Anticipated Interventions For the Purpose of:: To improve decision making, To facilitate caregiver knowledge, To improve self management, To prevent re-injury, To improve ability to perform tasks related to life management Assistive Devices: Crutches For the Purpose of:: To improve nutrient delivery to tissue, To improve gait and locomotor functions Thank you for the opportunity to evaluate your patient. For Medicare and Medicare HMO plans, please review the plan of care and approve it. It will need to be FAXED BACK to us at [phone] for Medicare purposes. For Medicare only, by signing this I certify the plan of care. Please let me know if there are questions or concerns regarding this plan of care. Physician Signature: Date:
== END 2019-01-26 17:00 | disposition home or self-care (01) ==
LOC: PT 08:28
PROVIDERS: Family Provider Internal Medicine; PCP Internal Medicine
DX: Z98.890 Other specified postprocedural states (principal)
CPT/HCPCS: 97161

== ENCOUNTER 2019-03-03 00:46 | Emergency (ER) | payer OTHER, SELFPAY ==
[2019-03-02 11:18] VITALS: BMI 24.4
[2019-03-03 00:47] VITALS: BP 116/70; PULSE 103; RESP 16; TEMP 36.6; O2SAT 97; BMI 25.8
--- NOTE | 2019-03-03 01:43 | ED.VIS.GEN ---
History of Present Illness Chief Complaint: Headache Narrative: Patient is a 23-year-old female who presents with a headache. She does have a history of migraines. She is not on any maintenance medication does not have any prescriptions as she states the prescribed medications never worked for her previously. Her current headache began 2 days ago and was a gradual onset. She describes it as squeezing all the way around her head and with worst pain behind her right eye. She also complains of some blurry vision and flashing lights which she is also previously had with her migraines. She states her current headache is similar in character and location to previous migraines just more severe. No fevers. She reports nausea without vomiting. No recent head injury. Past Medical History - Allergies and Home Meds Allergies/Adverse Reactions: Allergies cephalexin [From Keflex] Allergy (Mild, Verified 03/03/19 00:50) itching clarithromycin [From Biaxin] Allergy (Verified 03/03/19 00:50) Hives fish derived Allergy (Verified 03/03/19 00:50) Shortness of breath hydrocodone bitartrate [From Vicodin] Allergy (Verified 03/03/19 00:50) Itching iodine Allergy (Verified 03/03/19 00:50) Rash ketorolac tromethamine [From Toradol] Allergy (Verified 03/03/19 00:50) Shortness of breath latex Allergy (Verified 03/03/19 00:50) Shortness of breath Penicillins Allergy (Verified 03/03/19 00:50) Shortness of breath just the injection shellfish derived Allergy (Verified 03/03/19 00:50) Angioedema venom-honey bee [bee venom (honey bee)] Allergy (Verified 03/03/19 00:50) Shortness of breath verapamil Allergy (Verified 03/03/19 00:50) Other flu vaccine Allergy (Unknown, Uncoded 03/03/19 00:50) unknown Primary Care Physician: Devin Zheng MD [Primary Care Provider] - Past Medical History: - - Migraines, POTS syndrome Surgical History: cholecystectomy, - Smoking Status: Never smoker - Family History Maternal Family History: Family History (Last Reviewed 02/25/19 @ 09:33 by Kya Hilliard) Grandfather Cancer Diabetes Grandmother Heart disease Father Diabetes Heart disease Mother Anxiety and depression Thyroid disorder Grandmother Diabetes Family History: Reports: - - Mother denies any personal history but notes in her family she does have history of Crohn's disease and colon cancer. Paternal Family History: Family History (Last Reviewed 02/25/19 @ 09:33 by Kay Hilliard) Grandfather Cancer Diabetes Grandmother Heart disease Father Diabetes Heart disease Mother Anxiety and depression Thyroid disorder Grandmother Diabetes Family History: Reports: Diabetes Review of Systems All systems negative except as indicated General: Denies: Fever Cardiovascular: Denies: Chest pain Respiratory: Denies: Dyspnea Gastrointestinal: Reports: Nausea Neurological: Reports: Headache Physical Exam Vital Signs/Narrative: Vital Signs Temp Pulse Resp BP Pulse Ox 03/03/19 00:47 97.8 F 103 H 16 116/70 97 Inital Vital Signs reviewed: Yes General: Well nourished Head: Normocephalic Eyes: Perrl, EOMI ENT: Moist mucous membranes Neck: Supple, Nontender Cardiovascular: Regular rate, Regular rhythm Respiratory: No distress Skin: Normal color Neurological: Alert, Oriented x3, Normal Strength, Normal Sensation, - - No focal or lateralizing neurological deficits Psychological: Normal affect Diagnostic/Tx/Re-eval - Medical Decision Making Patient presents with a migraine similar to prior migraines. I do not feel any further diagnostic work-up or imaging is necessary. IV was attempted but was unsuccessful so patient was initially treated with oral Reglan with some improvement of her pain. However she still rated it as 7 out of 10 although she was sleeping at the time my reevaluation. At this point she was given IM Toradol and also complained of some itching was given Benadryl. She reports significant improvement on reevaluation and requested discharge. ED Disposition - Plan for ED Patient: Disposition: Home or Assisted Living Diagnosis: Headache Instructions: HEADACHE, Unspecified Referrals: Devin Zheng MD [Primary Care Provider] -
[2019-03-03] MEDS: Metoclopramide 10 MG Tablet PO (02:46)
--- NOTE | 2019-03-03 02:51 | ED.RN ---
PT HARD STICK. [address] KEANE INFORMED. ORDERS CHANGED TO PO MEDS. IV MEDS NOT GIVEN.
[2019-03-03] MEDS: Ketorolac 60 MG/2 ML Vial IM (03:27)
[2019-03-03] MEDS: DiphenhydrAMINE 25 MG Capsule PO (03:46)
--- NOTE | 2019-03-03 03:47 | ED.RN ---
PT reported itching on her legs and back. aware and placing orders.
[2019-03-03 04:21] VITALS: BP 110/78; PULSE 80; RESP 16; O2SAT 100
== END 2019-03-03 04:22 | disposition home or self-care (01) ==
PROVIDERS: Emergency Provider Emergency Medicine; Family Provider Internal Medicine; PCP Internal Medicine
DX: G43.909 Migraine, unspecified, not intractable, without status migrainosus (principal)
CPT/HCPCS: 96372; 99283; J7030; A4216

== ENCOUNTER 2019-03-05 19:15 | Emergency (ER) | payer OTHER, SELFPAY ==
[2019-03-05 11:28] VITALS: BMI 25.8
[2019-03-05 19:17] VITALS: BP 110/68; PULSE 101; RESP 14; TEMP 36; O2SAT 100; BMI 25.0
--- NOTE | 2019-03-05 19:33 | CT_ITS ---
STUDY: CT BRAIN WITHOUT CONTRAST REASON FOR EXAM: Female, 23 years old. Dizziness, headache RADIATION DOSAGE (If Supplied By Facility): CTDIvol = ( 44.99 ) mGy, DLP = ( 779.24 ) mGycm TECHNIQUE: Transaxial CT imaging of the brain was performed without administration of intravenous contrast material. Individualized dose optimization techniques were used for this CT. COMPARISON: June 23, 2015 FINDINGS: Normal soft tissue structures. Normal calvarium. Normal size ventricles and extra-axial spaces for the patient's age. Normal white matter tracts of the cerebral hemispheres. Prominent perivascular space in the right basal ganglia. Normal thalami. Normal brainstem. Slightly low-lying cerebellar tonsils. There is no intracranial hemorrhage. There are no findings of an acute ischemic infarction. Normal visualized paranasal sinuses. CT/Brain/Head without Contrast IMPRESSION: Slightly low-lying cerebellar tonsils. No acute intracranial pathology. Electronically Signed: Scott Abarca DO at 20:56 EDT Tel [phone], Service support ,
[2019-03-05 19:51] LABS: Mucous, Urine 0 SEEN /hpf (<or=2+); Red Blood Cells-Urine 0 SEEN /hpf (0-5)
[2019-03-05 19:53] LABS: Color, Urine Yellow (Yellow); Glucose, Dipstick Normal (Normal); Ketone-Dipstick Negative (Negative); Leukocyte Esterase-Dipstick 500 /ul (Negative); Nitrite-Dipstick Negative (Negative); Occult Blood-Urine Negative /ul (Negative); Protein-Dipstick Negative (Negative); Urine Bilirubin Dipstick Negative (Negative); Urine Clarity Sl. Cloudy (Clear); Urine Urobilinogen Normal (Normal)
[2019-03-05 19:55] LABS: Absolute Lymphocyte Count 2.62 X10^3/uL (0.83-4.51); Absolute Neutrophil Count 9.2 X10^3/uL (2.0-7.7); Basophil# 0.04 X10^3/uL; Basophil% 0.3 % (0-1); Eosinophil# 0.29 X10^3/uL; Eosinophils% 2.2 % (0-5); Hematocrit 41.6 % (37-47); Hemoglobin 13.5 g/dL (12.0-15.0); Lymphocyte # 2.62 X10^3/ul (4.0); Lymphocyte % 20.1 % (19-41); Mean Corp Hgb Conc 32.5 g/dL (32-36); Mean Corpuscular Volume 86.3 fL (81-99); Monocyte# 0.83 X10^3/uL; Monocyte% 6.4 % (0-10); NRBC Flagged by Analyzer 0 % (0-5); Neutrophil # 9.21 X10^3/uL (2.7-7.7); Neutrophil % 70.5 % (47-70); Platelet Count 209 K/mm3 (150-450); RBC Distribution Width CV 12.7 % (11.6-14.6); RBC Distribution Width SD 39.8 fl (35.1-43.9); Red Blood Count 4.82 M/mm3 (4.2-5.4); White Blood Count 13.1 K/mm3 (4.4-11.0)
[2019-03-05] MEDS: 0.9% Normal Saline 1,000 ML 1000 ML IV (19:56)
[2019-03-05] MEDS: Ketorolac 30 MG/ML Syringe IV (19:56)
[2019-03-05] MEDS: DiphenhydrAMINE 50 MG/ML Syringe 25 MG IV (19:56)
[2019-03-05] MEDS: proMETHazine 25 MG/ML Syringe 12.5 MG IV (19:57)
[2019-03-05 20:00] LABS: Bacteria 2+ /hpf (None Seen); Squamous Epithelial Cells - UA 0-5 SEEN /hpf (5-10); White Blood Cells 5-10 SEEN /hpf (0-5)
[2019-03-05 20:10] LABS: Internal QC Validated? YES +Cl - CLEAR BKGD; Pregnancy, Serum, hCG Quali. NEGATIVE Negative
[2019-03-05 20:12] LABS: BUN 11 mg/dL (7-18); Creatinine, Serum 1.11 mg/dL (0.55-1.02); Estimated Creatinine Clearance 75.34 ml/min; Glucose 87 mg/dL (74-106)
[2019-03-05 20:13] LABS: Anion Gap 6 (5-15); BUN/Creat Ratio 9.9 RATIO (10-20); Calcium,Total 9.1 mg/dL (8.5-10.1); Chloride 105 mmol/L (98-107); EST Glomerular Filtration Rate 63 mL/min (>60); Est Glom Filt Rate - Afr Amer 77 mL/min (>60); Potassium 4.8 mmol/L (3.5-5.1); Sodium Level 138 mmol/L (136-145)
--- NOTE | 2019-03-05 20:59 | ED.VISSUMM ---
- ER Visit Summary Date of Service: 03/05/19 Chief Complaint: [Headache] History of Present Illness: The patient is a 23 F [presents to the emergency department complaint of a headache that started 4 days ago. Patient was seen in the emergency department 3 days ago and given IM Toradol and p.o. Reglan which made her feel jittery and anxious and so she received some Benadryl. Headache never completely resolved. Patient tonight is complaining of dizziness especially with turning her head to the right. She states that her skin hurts on her abdomen and her arms. She denies any fever. She denies any chills or sweats. Patient does have a history of pots syndrome as well as history of migraines. Patient states the headache is diffuse and throbbing. She had nausea with it and vomiting when it first started but none since. She does get frequent migraines. Her last menstrual period was on the 12th of the month. Denies any falls or head injuries. She denies recent illness.] Physical Examination: [HEENT-PERRLA, EOMI. Cranial nerves II through XII grossly intact. TMs clear. Mucous membranes moist. No adenopathy. Cardiovascular-regular rate and rhythm without murmur or ectopy Lungs-clear to auscultation, chest wall stable without crepitus or subcu emphysema Abdomen-normoactive bowel sounds, soft, nontender, no rebound or rigidity, no peritoneal signs. Neuro lxkk-cukwqx-kijz and heel chery testing within normal limits, negative Romberg, negative , Fundi benign. Hallpike maneuver performed was negative for nystagmus or dizziness. Extremities-intact ?4, normal range of motion, normal pulses, atraumatic] Test Results: [CT scan of the brain without contrast showed slightly low-lying tonsils otherwise nothing acute. CBC with differential showed a white count of 13.1, hemoglobin 13, hematocrit 41, platelets 2 9. Chemistries unremarkable. Urinalysis showed 500 leukocyte esterase and 5-10 WBCs as well as +2 bacteria. hCG was negative.] Emergency Department Course and Treatment: [Patient given a liter normal same fluid bolus. Patient given Toradol 30 mg IV as well as Benadryl 25 mg IV and Phenergan 12.5 mill grams IV. Her headache mostly resolved.] Treatment Plan: [Patient will be treated with Bactrim and Antivert. Patient advised to follow-up with her primary care physician within next 3 to 5 days.] Disposition: [Discharged home in stable condition.] Impression: [Migraine headache Vertigo UTI] This note was generated with [employer] software. It may contain incorrect words, spelling, and punctuation that were not noted in review of the chart prior to signing ED Disposition - Plan for ED Patient: Referrals: Devin Zheng MD [Primary Care Provider] -
--- NOTE | 2019-03-05 21:04 | ED.DEP ---
ED Disposition - Plan for ED Patient: Instructions: Benign Positional Vertigo, ED, Migraine (Classical), Understanding Urinary Tract Infections (UTIs) Prescriptions: Meclizine HCl [Antivert] 25 mg PO 4X/DAY PRN PRN #20 tab PRN Reason: Dizziness Prescription Printed Smz/Tmp Ds [Bactrim Ds] 1 tab PO BID #6 tab Prescription Printed Referrals: Devin Zheng MD [Primary Care Provider] - 5-7 Days
[2019-03-05] MEDS: Smz/Tmp Ds Tablet 1 TABLET PO (21:11)
[2019-03-05 21:14] VITALS: BP 97/64; PULSE 74; RESP 18; O2SAT 100
== END 2019-03-05 21:18 | disposition home or self-care (01) ==
LOC: ED 19:38
PROVIDERS: Emergency Provider Emergency Medicine; Family Provider Internal Medicine; PCP Internal Medicine
DX: G43.909 Migraine, unspecified, not intractable, without status migrainosus (principal); N39.0 Urinary tract infection, site not specified; R42 Dizziness and giddiness
CPT/HCPCS: 70450; 80048; 81001; 84703; 85025; 87086; 87088; 96361; 96374; 96375; 99284; J7030; A4216

== ENCOUNTER → 2019-05-17 08:36 | Outpatient (CLI) | payer OTHER, SELFPAY ==
[2019-05-08 14:08] VITALS: BMI 25.2
[2019-05-17 10:03] LABS: Hematocrit 36.8 % (37-47); Hemoglobin 11.7 g/dL (12.0-15.0); Mean Corp Hgb Conc 31.8 g/dL (32-36); Mean Corpuscular Hgb 26.7 pg (27.0-32.0); Mean Platelet Vol. 10.3 fl (6.2-12.0); Platelet Count 188 K/mm3 (150-450); RBC Distribution Width CV 13.4 % (11.6-14.6); RBC Distribution Width SD 41.4 fl (35.1-43.9); Red Blood Count 4.38 M/mm3 (4.2-5.4); White Blood Count 6.7 K/mm3 (4.4-11.0)
[2019-05-17 10:15] LABS: AST(SGOT) 16 U/L (15-37); Alanine Aminotransfer ALT/SGPT 18 U/L (13-56); Anion Gap 2 (5-15); BUN 13 mg/dL (7-18); BUN/Creat Ratio 13.3 RATIO (10-20); Calcium,Total 8.6 mg/dL (8.5-10.1); Chloride 111 mmol/L (98-107); Cholesterol 153 mg/dL (200); Creatinine, Serum 0.97 mg/dL (0.55-1.02); EST Glomerular Filtration Rate 74 mL/min (>60); Est Glom Filt Rate - Afr Amer 89 mL/min (>60); Glucose 91 mg/dL (74-106); High Density Lipoprotein 48 mg/dL; Potassium 3.9 mmol/L (3.5-5.1); Sodium Level 143 mmol/L (136-145); Triglycerides 58 mg/dL; Very Low Density Lipoprotein 12 mg/dL (5-40)
[2019-05-17 10:19] LABS: Hemoglobin A1c 4.8 % (4.2-6.3)
== END ==
PROVIDERS: Family Provider Internal Medicine; PCP Internal Medicine
DX: Z79.899 Other long term (current) drug therapy (principal)
CPT/HCPCS: 36415; 80048; 80061; 83036; 84450; 84460; 85027

== ENCOUNTER 2019-08-31 15:00 | Outpatient (RCR) | payer OTHER, SELFPAY ==
[2019-03-27 11:17] VITALS: BMI 25.0
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
--- NOTE | 2019-03-28 13:59 | HP.PTEVAL2 ---
Patient's Visit Information JANICE GOODMAN is a 23 year old F referred to Physical Therapy by RAMOS ALONSO with a diagnosis of REYNA, migraines. Date of Evaluation: 03/22/19 Physical Therapist: Dilip Kohli DPT - Visit Plan Frequency: 2x /Week Duration: 4-6 Weeks Plan: Start with DN to B cervical erector spinea and suboccipitals. Progress to cervical retraction, and postural strengthening. - Subjective Findings: Pt. is here today for her initial evaluation with diagnosis of neck pain, migraines. Pt. is also being seen for a L foot surgery. Pt. reports having migraines for many years, but has become worse recently. Pt. has a Hx of Pots, but is better regulated. Pt. reports having 2/10 REYNA currently, migraines x1-2 per week. She reports pain is in posterior neck and up the back side of her head, but occassionally at [place] as well. Pt. denies N/T in either UE. Pt. reports no changes in vision. Pt. does not recall any triggers, but I talked to her about attempting to indentify. Pt. is hopeful to reduce symptoms in order to get back to all recreational actiities without issues. - Pain REYNA Intensity: 2 Pain Intensity Range: 0, 8 - Objective Objective: POSTURE: Pt. has FH posture, rounded shoulders, lower cervical flexion. Pt. is able to correct with VCing. PALPATION: Pt. has tenderness along cervical erector spinea, sub occipitals bilatearlly. Pt. pain along B UT or levator scapulea. NEURO: normal UEs sensation and DTR bilaterally. ROM: cervical spine: full no issues. MMT: BUEs- 5-/5 throughout, cervical iso 5/5 throughout. - Goals Goal 1:: Pt. to be I with HEP. Goal Time Frame: 4-6 Weeks Goal 2:: Pt. to have decreased REYNA to x0-1 per week with 0-2/10 intensity. Goal Time Frame: 4-6 Weeks Goal 3:: Pt. to sleep without issues. Goal Time Frame: 4-6 Weeks Goal 4:: Pt. demonstrate improved posture throughout therapy session, indicating increased postural awareness. Goal Time Frame: 4-6 Weeks - Rehabilitation Potential Physical Therapy Diagnosis: Pt. has signs and symptoms consistent cervicogenic REYNA and migraines. Pt. has poor posture, increased lower cervical flexion. Pt. would benefit from PT to increase posture, decrease muscle tension of sub occipitals and increase postural strength. Rehabilitation Potential: Excellent - Anticipated Interventions Patient/Client Instruction: Educate patient on: Condition, Plan of Care, Risk Factors, Benefits of Fitness Program For the Purpose of:: To improve decision making, To facilitate caregiver knowledge, To improve self management, To prevent re-injury, To improve ability to perform tasks related to life management, To improve tolerance to ADL's Therapeutic Exercise to Include: Strength training, Body mechanics, Postural training, Flexibilty training, Passive ROM, Active ROM, Yennifer Exercises, Scapular Strength/Stabilization For the Purpose of:: To decrease pain, To decrease swelling/inflammation, To increase ROM, To improve nutrient delivery to tissue, To improve muscle performance and motor function, To improve health of tissue, To decrease soft tissue restriction, To increase flexibility/ROM Manual Therapy Techniques to Include: Mobilization, Functional dry needling, Soft tissue mobilization For the Purpose of:: To decrease pain, To decrease swelling/inflammation, To increase ROM, To improve nutrient delivery to tissue, To increase oxygenation perfusion, To improve muscle performance and motor function Cryotherapy (ice pack, ice massage): Yes Ultrasound (thermal/non thermal): Yes For the Purpose of:: To decrease pain, To decrease swelling/inflammation, To increase ROM, To improve nutrient delivery to tissue Thank you for the opportunity to evaluate your patient. For Medicare and Medicare HMO plans, please review the plan of care and approve it. It will need to be FAXED BACK to us at [phone] for Medicare purposes. For Medicare only, by signing this I certify the plan of care. Please let me know if there are questions or concerns regarding this plan of care. Physician Signature: Date:
--- NOTE | 2019-05-08 16:39 | HP.PTREVAL ---
RAMOS ALONSO, It has been my pleasure to treat JANICE GOODMAN over the last 11 visits for L tarsal tunnel, L fibromitosis. Please see the progress note below for an update on the physical therapy plan of care! Subjective: Pt still lacks a lot of strength and is unable to walk further distances secondary to weakness Objective/Function: L ankle pain 05/18. Pt is still limited with ambulaotry distance secondary to L LE weakness (1000 feet). Pt still having sleep difficulty at night secondar;y to pain. L ankle DF now 10 degrees. Scar tissue is still healing at this time. Pt is progressing well toward Rx goals Plan Plan: Cont with PT POC 2 times per week for 4 weeks Goals Goal 1:: Pt. to be I with HEP. Goal Time Frame: 4-6 Weeks Goal Progress: Progressing Goal 2:: Pt. to have full DF of L ankle allowing for increased toleance with walking and stair negotiation. Goal Time Frame: 4-6 Weeks Goal Progress: Progressing Goal 3:: Pt. to have decreased presence of scar tissue at distal end of incision. Goal Time Frame: 4-6 Weeks Goal Progress: Progressing Goal 4:: Pt. to ambulate with normal gait pattern for unlmited distances without increase in symptoms. Goal Time Frame: 4-6 Weeks Goal Progress: Progressing Goal 5:: Pt. to sleep throughout the night without increase in symptoms. Goal Time Frame: 4-6 Weeks Goal Progress: Progressing Goal 6:: Pt. to have increased strength throughout L foot/ankle by 1/2 grade. Goal Time Frame: 4-6 Weeks Goal Progress: Progressing Anticipated Interventions Patient/Client Instruction: Educate patient on: Condition, Plan of Care, Risk Factors, Benefits of Fitness Program For the Purpose of:: To improve decision making, To facilitate caregiver knowledge, To improve self management, To prevent re-injury, To improve ability to perform tasks related to life management, To improve tolerance to ADL's Therapeutic Exercise to Include: Strength training, Power training, Postural training, Flexibilty training, Gait and locomotor training, Passive ROM, Active ROM For the Purpose of:: To decrease pain, To decrease swelling/inflammation, To increase ROM, To increase oxygenation perfusion, To improve muscle performance and motor function, To improve ability to perform ADL's, To improve gait and locomotor functions, To improve health of tissue, To increase flexibility/ROM, To improve endurance Manual Therapy Techniques to Include: Scar massage, Passive ROM, Soft tissue mobilization For the Purpose of:: To decrease pain, To decrease swelling/inflammation, To increase ROM, To improve nutrient delivery to tissue, To improve muscle performance and motor function, To decrease soft tissue restriction, To increase flexibility/ROM IF ES: Yes Cryotherapy (ice pack, ice massage): Yes Vasopneumatic device: Yes For the Purpose of:: To decrease pain, To decrease swelling/inflammation, To increase ROM, To improve nutrient delivery to tissue Please do not hesitate to contact me at [phone] by phone or if you have questions or concerns regarding this new plan of care! Sincerely, Cedric Love, PT, ATC
--- NOTE | 2019-05-21 10:58 | HP.PTRE(2) ---
RAMOS ALONSO, It has been my pleasure to treat JANICE GOODMAN over the last 11 visits for REYNA, migraines. Please see the progress note below for an update on the physical therapy plan of care! Subjective: Pt. reprots being 75% better overall. Pt. is HEP compliant without issues. Pt. has improved postural awareness, but still has fwrd flexed posture resulting in increased upper cervical extension. Pt. reports ahving 2/10 REYNA, suboccpital region today, pre treatment Objective/Function/Assessment: Re assessment: ROM; PT. has good ROM of her cervical spine, but contiues to be stiff into extension of her thoracic spine. Min/mod loss into extension. MMT: Pt. has 5/5 strength throughout BUEs, deep neck flexor strength 4+/5, endurance 30sec with chin tuck. Palpation: PT. continues to be tender with palpation fo suboccipitals, but improved. REYNA: Pt. describes REYNA at suboccipitals that radiates up the back side of her head. Plan Plan: Cont. wtih x2 per week for 3-4 weeks. Cont. to work on postureal strengthening and stability. May use DN to reduce muscle tension, promote increased deep cervical strengthening. Goals - Goals Goal 1:: Pt. to be I with HEP. Goal Time Frame: 4-6 Weeks Goal Progress: Progressing Goal 2:: Pt. to have decreased REYNA to x0-1 per week with 0-2/10 intensity. Goal Time Frame: 4-6 Weeks Goal Progress: Progressing Goal 3:: Pt. to sleep without issues. Goal Time Frame: 4-6 Weeks Goal Progress: Goal Met Goal 4:: Pt. demonstrate improved posture throughout therapy session, indicating increased postural awareness. Goal Time Frame: 4-6 Weeks Goal Progress: Progressing Goal 5:: Increase deep neck flexor strength (endurance) to hold for 1 minute. Goal Time Frame: 4-6 Weeks Goal Progress: Progressing Anticipated Interventions Patient/Client Instruction: Educate patient on: Condition, Plan of Care, Risk Factors, Benefits of Fitness Program For the Purpose of:: To improve decision making, To facilitate caregiver knowledge, To improve self management, To prevent re-injury, To improve ability to perform tasks related to life management, To improve tolerance to ADL's Therapeutic Exercise to Include: Strength training, Body mechanics, Postural training, Flexibilty training, Passive ROM, Active ROM, Yennifer Exercises, Scapular Strength/Stabilization For the Purpose of:: To decrease pain, To decrease swelling/inflammation, To increase ROM, To improve nutrient delivery to tissue, To improve muscle performance and motor function, To improve health of tissue, To decrease soft tissue restriction, To increase flexibility/ROM Manual Therapy Techniques to Include: Mobilization, Functional dry needling, Soft tissue mobilization For the Purpose of:: To decrease pain, To decrease swelling/inflammation, To increase ROM, To improve nutrient delivery to tissue, To increase oxygenation perfusion, To improve muscle performance and motor function Cryotherapy (ice pack, ice massage): Yes Ultrasound (thermal/non thermal): Yes For the Purpose of:: To decrease pain, To decrease swelling/inflammation, To increase ROM, To improve nutrient delivery to tissue Please do not hesitate to contact me at [phone] by phone or if you have questions or concerns regarding this new plan of care! Sincerely, Dilip Kohli DPT
--- NOTE | 2019-06-20 16:03 | HP.PTREVAL ---
RAMOS ALONSO, It has been my pleasure to treat JANICE GOODMAN over the last 20 visits for L tarsal tunnel, L fibromitosis. Please see the progress note below for an update on the physical therapy plan of care! Subjective: Pt is very sore this date Objective/Function: L foot pain ranges from 4-6/10. L ankle DF ROM: 8 degrees. L ankle MMT: 4/5 throughout. Pt is able to ambulate now with no evidence of a L LE limp. Pt is progressing well toward Rx goals Plan Plan: Cont to progress as tolerated Goals Goal 1:: Pt. to be I with HEP. Goal Time Frame: 4-6 Weeks Goal Progress: Progressing Goal 2:: Pt. to have full DF of L ankle allowing for increased toleance with walking and stair negotiation. Goal Time Frame: 4-6 Weeks Goal Progress: Progressing Goal 3:: Pt. to have decreased presence of scar tissue at distal end of incision. Goal Time Frame: 4-6 Weeks Goal Progress: Progressing Goal 4:: Pt. to ambulate with normal gait pattern for unlmited distances without increase in symptoms. Goal Time Frame: 4-6 Weeks Goal Progress: Progressing Goal 5:: Pt. to sleep throughout the night without increase in symptoms. Goal Time Frame: 4-6 Weeks Goal Progress: Progressing Goal 6:: Pt. to have increased strength throughout L foot/ankle by 1/2 grade. Goal Time Frame: 4-6 Weeks Goal Progress: Progressing Anticipated Interventions Patient/Client Instruction: Educate patient on: Condition, Plan of Care, Risk Factors, Benefits of Fitness Program For the Purpose of:: To improve decision making, To facilitate caregiver knowledge, To improve self management, To prevent re-injury, To improve ability to perform tasks related to life management, To improve tolerance to ADL's Therapeutic Exercise to Include: Strength training, Power training, Postural training, Flexibilty training, Gait and locomotor training, Passive ROM, Active ROM For the Purpose of:: To decrease pain, To decrease swelling/inflammation, To increase ROM, To increase oxygenation perfusion, To improve muscle performance and motor function, To improve ability to perform ADL's, To improve gait and locomotor functions, To improve health of tissue, To increase flexibility/ROM, To improve endurance Manual Therapy Techniques to Include: Scar massage, Passive ROM, Soft tissue mobilization For the Purpose of:: To decrease pain, To decrease swelling/inflammation, To increase ROM, To improve nutrient delivery to tissue, To improve muscle performance and motor function, To decrease soft tissue restriction, To increase flexibility/ROM IF ES: Yes Cryotherapy (ice pack, ice massage): Yes Vasopneumatic device: Yes For the Purpose of:: To decrease pain, To decrease swelling/inflammation, To increase ROM, To improve nutrient delivery to tissue Please do not hesitate to contact me at [phone] by phone or if you have questions or concerns regarding this new plan of care! Sincerely, Cedric Love, PT, ATC
--- NOTE | 2019-09-04 09:58 | HP.PTDCSUM ---
It has been my pleasure to treat JANICE GOODMAN referred by RAMOS ALONSO, with the diagnosis of L tarsal tunnel, L fibromitosis for a total of 29 visit(s). Discharge Date: 08/31/19 Please see the following information for a summary of their discharge status. Subjective: Pt. reports getting back to work without issues. She reprots her foot is doign much better, occassional soreness, but minimal. Pt. reports beign HEP compliant. L foot Pain Intensity (Out of 10): 0 % Improvement: 96 Objective/Function: Great ROM of ankle no stiffness noted. 5/5 strength. PT. has normal gait pattern and stair negotation. Pt. has good scar mobility. Pt. is doing very well overall. Pt. to be DC from PT at this point in time. Goal 1:: Pt. to be I with HEP. Goal Progress: Goal Met Goal 2:: Pt. to have full DF of L ankle allowing for increased toleance with walking and stair negotiation. Goal Progress: Goal Met Goal 3:: Pt. to have decreased presence of scar tissue at distal end of incision. Goal Progress: Goal Met Goal 4:: Pt. to ambulate with normal gait pattern for unlmited distances without increase in symptoms. Goal Progress: Goal Met Goal 5:: Pt. to sleep throughout the night without increase in symptoms. Goal Progress: Goal Met Goal 6:: Pt. to have increased strength throughout L foot/ankle by 1/2 grade. Goal Progress: Goal Met Plan: DC patient this date. Discharge Comments: Pt. was see for her foot surgery. Pt. is doing well now, but did have some toruble with pain. Pt. reports being much better. Pt. is back to all activities without limitaitons., Pt. will be DC from PT at this point intime. If there are questions or concerns regarding this patient's physical therapy, please feel free to call me at [phone]. Thank you for the referral of this patient. Sincerely, Dilip Kohli DPT
--- NOTE | 2019-09-04 09:59 | HP.PT.NRP(2) ---
JANICE GOODMAN was seen in my office for initial evaluation on 03/22/19. The following Plan of Care was established for this patient: Initial Frequency: 2x /Week Initial Duration: 4-6 Weeks Plan from Re-Evaluation: Cont. wtih x2 per week for 3-4 weeks. Cont. to work on postureal strengthening and stability. May use DN to reduce muscle tension, promote increased deep cervical strengthening. Patient/Client Instruction: Educate patient on: Condition, Plan of Care, Risk Factors, Benefits of Fitness Program For the Purpose of:: To improve decision making, To facilitate caregiver knowledge, To improve self management, To prevent re-injury, To improve ability to perform tasks related to life management, To improve tolerance to ADL's Therapeutic Exercise to Include: Strength training, Body mechanics, Postural training, Flexibilty training, Passive ROM, Active ROM, Yennifer Exercises, Scapular Strength/Stabilization For the Purpose of:: To decrease pain, To decrease swelling/inflammation, To increase ROM, To improve nutrient delivery to tissue, To improve muscle performance and motor function, To improve health of tissue, To decrease soft tissue restriction, To increase flexibility/ROM Manual Therapy Techniques to Include: Mobilization, Functional dry needling, Soft tissue mobilization For the Purpose of:: To decrease pain, To decrease swelling/inflammation, To increase ROM, To improve nutrient delivery to tissue, To increase oxygenation perfusion, To improve muscle performance and motor function Cryotherapy (ice pack, ice massage): Yes Ultrasound (thermal/non thermal): Yes For the Purpose of:: To decrease pain, To decrease swelling/inflammation, To increase ROM, To improve nutrient delivery to tissue This patient was last seen in our office . Pertinent comments regarding their Physical therapy will appear below: Pt. was see for her migrain REYNA. Pt. is doing much better. Pt. has not been seen for her migraines in several weeks and will be DC from PT at this point in time. At this point I will be discontinuing this patient from physical therapy. I would be happy to see this patient again in the future if found appropriate by the physician. Thank you! Dilip Kohli, GALET
== END 2019-08-31 19:00 | disposition home or self-care (01) ==
LOC: PT 15:00
PROVIDERS: Family Provider Internal Medicine; PCP Internal Medicine
DX: G43.909 Migraine, unspecified, not intractable, without status migrainosus (principal); M21.6X1 Other acquired deformities of right foot; M21.6X2 Other acquired deformities of left foot; M72.2 Plantar fascial fibromatosis; S93.402D Sprain of unspecified ligament of left ankle, subsequent encounter; G57.53 Tarsal tunnel syndrome, bilateral lower limbs
CPT/HCPCS: 97110; 97140; 97161; 97164; 97530

== ENCOUNTER 2019-12-20 08:00 | Outpatient (RCR) | payer OTHER, SELFPAY ==
[2019-08-20 14:39] VITALS: BMI 25.2
== END 2019-12-20 19:00 | disposition home or self-care (01) ==
LOC: PT 08:00
PROVIDERS: PCP Internal Medicine; Referring Provider Physician Assistant; Visit Provider Physician Assistant
DX: S93.402D Sprain of unspecified ligament of left ankle, subsequent encounter (principal); S93.602D Unspecified sprain of left foot, subsequent encounter
CPT/HCPCS: 97014; 97032; 97110; 97161; G0283

== ENCOUNTER 2019-12-23 19:39 | Emergency (ER) | payer OTHER, SELFPAY ==
[2019-11-01 15:36] VITALS: BMI 24.7
[2019-12-23 19:41] VITALS: BP 109/65; PULSE 102; RESP 15; TEMP 36.6; O2SAT 100; BMI 25.0
--- NOTE | 2019-12-23 20:40 | ED.DCSUM_ITS ---
History of Present Illness Chief Complaint: Other, Pain/Inj Informant: Patient, Family Onset: Days Context: Sudden Onset Timing: Intermittent Quality: Numbness, muscle spasms, Location: Face, back and lower extremities Current Severity: Mild Maximum Severity: Moderate Worsened by: Possible adverse reaction to Saphris Relieved by: Nothing Associated Symptoms: No other symptoms Narrative: Patient is a 24-year-old with known psychiatric disorder recently started on a new antidepressant. The antidepressant she was started on is an atypical antidepressant and a tetracyclic. Review of literature indicates there is no concern for serotonin effect. The nurse practitioner called and spoke with Dr. brandt and raise concern for serotonin effect. Her symptoms are paresthesia that was perioral and fingers after first dose. Lasted 1 hour. She is had muscle spasms and cramps in back and lower extremity. She has no other symptoms. Prior similar symptoms: No Recent Illness/Hospitalization: No - Past Medical History (1) Antiphospholipid antibody syndrome Status: Acute Comment: Lovenox 40mg daily and 81mg ASA daily, weekly nsts after 32 weeks and q 4 week growth us, IOL at 39 (2) Anxiety and depression Status: Chronic (3) Asthma Status: Chronic (4) GERD (gastroesophageal reflux disease) Status: Chronic (5) Migraine Status: Chronic (6) POTS (postural orthostatic tachycardia syndrome) Status: Chronic (7) Prothrombin gene mutation Status: Chronic Comment: heterozygous. lovenox (8) Syncope Status: Chronic Past Medical History - Allergies and Home Meds Allergies/Adverse Reactions: Allergies cephalexin [From Keflex] Allergy (Mild, Verified 12/23/19 19:46) itching clarithromycin [From Biaxin] Allergy (Verified 12/23/19 19:46) Hives fish derived Allergy (Verified 12/23/19 19:46) Shortness of breath hydrocodone bitartrate [From Vicodin] Allergy (Verified 12/23/19 19:46) Itching iodine Allergy (Verified 12/23/19 19:46) Rash ketorolac tromethamine [From Toradol] Allergy (Verified 12/23/19 19:46) Shortness of breath latex Allergy (Verified 12/23/19 19:46) Shortness of breath Penicillins Allergy (Verified 12/23/19 19:46) Shortness of breath just the injection shellfish derived Allergy (Verified 12/23/19 19:46) Angioedema venom-honey bee [bee venom (honey bee)] Allergy (Verified 12/23/19 19:46) Shortness of breath verapamil Allergy (Verified 10/10/19 15:29) Other flu vaccine Allergy (Unknown, Uncoded 10/10/19 15:29) unknown Prior records reviewed: Yes Surgical History: cholecystectomy, - Lives: With Family Smoking Status: Never smoker Alcohol: None Drugs: None - Family History Maternal Family History: Family History (Last Reviewed 11/01/19 @ 15:36 by Roxy Boggs) Grandfather Cancer Diabetes Grandmother Heart disease Father Diabetes Heart disease Mother Anxiety and depression Thyroid disorder Grandmother Diabetes Family History: Reports: - - Mother denies any personal history but notes in her family she does have history of Crohn's disease and colon cancer. Paternal Family History: Family History (Last Reviewed 11/01/19 @ 15:36 by Roxy Boggs) Grandfather Cancer Diabetes Grandmother Heart disease Father Diabetes Heart disease Mother Anxiety and depression Thyroid disorder Grandmother Diabetes Family History: Reports: Diabetes Review of Systems General: Denies: Chills, Fever Eyes: Denies: Visual changes - bilaterally, Blurred Vision - bilaterally ENT: Denies: Rhinorrhea, Sore throat Cardiovascular: Denies: Chest pain, Palpitations Respiratory: Denies: Dyspnea, Cough Gastrointestinal: Denies: Abdominal pain, Nausea, Vomiting Genitourinary: Denies: Dysuria, Hematuria, Frequency Musculoskeletal: Reports: Back pain, Extremity Pain. Denies: Myalgias, Arthr algias, Neck pain, Swelling, -, - Skin: Denies: Rash, Wounds Neurological: Reports: Parasthesia. Denies: Headache, Weakness, Numbness Psych: Reports: Depression, Anxiety Endocrine: Denies: Polyuria, Polydipsia Physical Exam Vital Signs/Narrative: Vital Signs Temp Pulse Resp BP Pulse Ox 12/23/19 19:41 97.8 F 102 H 15 109/65 100 Inital Vital Signs reviewed: Yes General: Well nourished, Well developed, No Acute Distress Head: Normocephalic, Atraumatic Eyes: Perrl, EOMI Neck: Supple, Nontender Cardiovascular: Regular rate, Regular rhythm, No murmurs, Normal S1, Normal S2 Respiratory: No distress, CTA bilaterally, Chest nontender Abdomen: Soft, Nontender, Nondistended, Normal bowel sounds Back: Nontender, Normal Inspection Extremities: Nontender, No edema Skin: Normal color, No rash Neurological: Alert, Oriented x3, Cranial nerves II-XII grossly intact, Normal Strength, Normal Sensation, Normal DTR, Normal Gait Psychological: Normal affect Diagnostic/Tx/Re-eval - Medical Decision Making Warnings and adverse reaction for Saphris was reviewed. There is no concern for serotonin syndrome. She was discharged to home with instructions to discontinue medication. ED Disposition - Plan for ED Patient: Disposition: Home or Assisted Living Diagnosis: Adverse reaction to drug Instructions: ED Drug React Adverse Other Additional Instructions: Follow-up with your psychiatrist. Discontinue the Saphris.
== END 2019-12-23 21:23 | disposition home or self-care (01) ==
LOC: ED 20:45
PROVIDERS: Emergency Provider Emergency Medicine
DX: R20.2 Paresthesia of skin (principal); T43.205A Adverse effect of unspecified antidepressants, initial encounter; Y92.9 Unspecified place or not applicable; F41.9 Anxiety disorder, unspecified; F32.9 Major depressive disorder, single episode, unspecified; K21.9 Gastro-esophageal reflux disease without esophagitis; I49.8 Other specified cardiac arrhythmias; D68.52 Prothrombin gene mutation; G43.909 Migraine, unspecified, not intractable, without status migrainosus; J45.909 Unspecified asthma, uncomplicated; Z79.899 Other long term (current) drug therapy
CPT/HCPCS: 99282

== ENCOUNTER 2019-12-24 21:43 | Emergency (ER) | payer OTHER, SELFPAY ==
[2019-12-23 19:41] VITALS: BMI 25.0
[2019-12-24 21:45] VITALS: BP 114/79; PULSE 98; RESP 16; TEMP 36.4; O2SAT 99; BMI 25.7
--- NOTE | 2019-12-24 22:53 | ED.DCSUM_ITS ---
History of Present Illness Chief Complaint: Diarrhea Informant: Patient Narrative: Patient stated that since yesterday she has had diffuse abdominal cramping with nausea. She thinks this is secondary to medication side effect. She was in the emergency department yesterday after taking Saphris for anxiety and depression. She stopped this at that time. She stated she has had 10 episodes of loose diarrhea since yesterday. She thinks she might be a bit dehydrated. Current severity is mild. Overall she states she just does not feel that well. No Previous abdominal surgeries - Past Medical History (1) Acute bronchitis Status: Acute (2) Acute sinusitis, unspecified Status: Acute (3) Antiphospholipid antibody syndrome Status: Acute Comment: Lovenox 40mg daily and 81mg ASA daily, weekly nsts after 32 weeks and q 4 week growth us, IOL at 39 (4) Aphthous ulcer Status: Acute (5) Conjunctivitis, both eyes Status: Acute (6) Meconium stained amniotic fluid, delivered, current hospitalization Status: Acute (7) Paronychia of finger of right hand Status: Acute (8) Status: Acute Comment: declines routine lab screenings, genetic, carrier, NTD, and GCT screenings. patient to check 1 week of FBS and 2 hr PPG for diabetes screening. anatomy scan normal. (9) Seasonal allergies Status: Acute (10) Sinusitis, acute Status: Acute (11) Supervision of high-risk Status: Acute Comment: DEBBY [birth year] boy (name mckinley) PC jung danielle; Deliver at [facility] with ALEX and gabrielle Munroe Declines labs, declines glucose testing (12) UTI (urinary tract infection) Status: Acute (13) Vaginal delivery Status: Acute (14) Anxiety and depression Status: Chronic (15) Asthma Status: Chronic (16) GERD (gastroesophageal reflux disease) Status: Chronic (17) Migraine Status: Chronic (18) POTS (postural orthostatic tachycardia syndrome) Status: Chronic (19) Prothrombin gene mutation Status: Chronic Comment: heterozygous. lovenox (20) Syncope Status: Chronic Past Medical History - Allergies and Home Meds Allergies/Adverse Reactions: Allergies cephalexin [From Keflex] Allergy (Mild, Verified 12/24/19 21:59) itching clarithromycin [From Biaxin] Allergy (Verified 12/24/19 21:59) Hives fish derived Allergy (Verified 12/24/19 21:59) Shortness of breath hydrocodone bitartrate [From Vicodin] Allergy (Verified 12/24/19 21:59) Itching iodine Allergy (Verified 12/24/19 21:59) Rash ketorolac tromethamine [From Toradol] Allergy (Verified 12/24/19 21:59) Shortness of breath latex Allergy (Verified 12/24/19 21:59) Shortness of breath Penicillins Allergy (Verified 12/24/19 21:59) Shortness of breath just the injection shellfish derived Allergy (Verified 12/24/19 21:59) Angioedema venom-honey bee [bee venom (honey bee)] Allergy (Verified 12/24/19 21:59) Shortness of breath verapamil Allergy (Verified 12/24/19 21:59) Other flu vaccine Allergy (Unknown, Uncoded 12/24/19 21:59) unknown Primary Care Physician: Care Physician,No Primary [Primary Care Provider] - Prior records reviewed: Yes Past Medical History: - - See problem list Surgical History: cholecystectomy, - Smoking Status: Former smoker Alcohol: None Drugs: None - Family History Maternal Family History: Family History (Last Reviewed 11/01/19 @ 15:36 by Roxy Boggs) Grandfather Cancer Diabetes Grandmother Heart disease Father Diabetes Heart disease Mother Anxiety and depression Thyroid disorder Grandmother Diabetes Family History: Reports: - - Mother denies any personal history but notes in her family she does have history of Crohn's disease and colon cancer. Paternal Family History: Family History (Last Reviewed 11/01/19 @ 15:36 by Roxy Boggs) Grandfather Cancer Diabetes Grandmother Heart disease Father Diabetes Heart disease Mother Anxiety and depression Thyroid disorder Grandmother Diabetes Family History: Reports: Diabetes Review of Systems General: Denies: Chills, Fever, Sweats Eyes: Denies: Visual changes - bilaterally, Diplopia ENT: Denies: Rhinorrhea, Sore throat Cardiovascular: Denies: Chest pain, Palpitations Respiratory: Denies: Dyspnea, Cough, Dyspnea on exertion Gastrointestinal: Reports: Abdominal pain, Nausea, Diarrhea. Denies: Vomiting, Melena, Hematochezia Genitourinary: Denies: Dysuria, Hematuria, Frequency Musculoskeletal: Denies: Back pain, Extremity Pain Skin: Denies: Rash, Wounds Neurological: Denies: Headache, Weakness, Numbness Physical Exam Vital Signs/Narrative: Vital Signs Temp Pulse Resp BP Pulse Ox 12/24/19 21:45 97.6 F L 98 16 114/79 99 General: Well nourished, Well developed, No Acute Distress Head: Normocephalic, Atraumatic Eyes: Perrl, EOMI ENT: Moist mucous membranes, No rhinorrhea Neck: Supple, Nontender Cardiovascular: Regular rate, Regular rhythm, No murmurs Respiratory: No distress, CTA bilaterally, Chest nontender Abdomen: Soft, Nondistended, Normal bowel sounds, Tender - Mild diffuse tenderness. Negative for: Guarding, Rebound tenderness Back: Nontender, Normal Inspection Extremities: Nontender, No edema Skin: Normal color, No rash Neurological: Alert, Oriented x3, Cranial nerves II-XII grossly intact, Normal Strength, Normal Sensation Psychological: Normal affect, Normal Mood Diagnostic/Tx/Re-eval - Medical Decision Making Patient given IV fluids and Zofran. Given Bentyl. Lab work obtained. Lab work shows a potassium low at 2.5. Calcium mildly low. Rest of her lab work unremarkable. Given oral potassium replacement. I suspect from her diarrhea. Given Imodium. No diarrhea in the department. Will continue Imodium at home. Given a 3-day course of potassium prescription and she will follow-up as an outpatient for recheck. I do not feel she needs imaging at this time. Gillett better after treatment ED Disposition - Plan for ED Patient: Disposition: Home or Assisted Living Diagnosis: Nausea, Diarrhea, Hypokalemia Instructions: ED Vomiting and Diarrhea Nonspecific Adult Prescriptions: Potassium Chloride [K-Dur] 40 meq PO DAILY #10 tab Transmission Status: Pending to [id number] Referrals: Care Physician,No Primary [Primary Care Provider] -
[2019-12-24] MEDS: 0.9% Normal Saline 1,000 ML 1000 ML IV ×2 (22:58→23:55)
[2019-12-24] MEDS: Ondansetron 4 MG/2 ML Vial IV (22:59)
[2019-12-24] MEDS: Dicyclomine 20 MG/2 ML Vial IM (22:59)
[2019-12-24 23:13] LABS: Absolute Lymphocyte Count 0.51 X10^3/uL (0.83-4.51); Absolute Neutrophil Count 6.9 X10^3/uL (2.0-7.7); Basophil# 0.01 X10^3/uL; Basophil% 0.1 % (0-1); Eosinophil# 0.22 X10^3/uL; Eosinophils% 2.8 % (0-5); Hematocrit 37.5 % (37-47); Hemoglobin 12.5 g/dL (12.0-15.0); Lymphocyte # 0.51 X10^3/ul (4.0); Lymphocyte % 6.4 % (19-41); Mean Corp Hgb Conc 33.3 g/dL (32-36); Mean Corpuscular Hgb 27.8 pg (27.0-32.0); Mean Corpuscular Volume 83.3 fL (81-99); Mean Platelet Vol. 10.4 fl (6.2-12.0); Monocyte# 0.31 X10^3/uL; Monocyte% 3.9 % (0-10); NRBC Flagged by Analyzer 0 % (0-5); Neutrophil # 6.89 X10^3/uL (2.7-7.7); Neutrophil % 86.5 % (47-70); POSITIVE DIFFERENTIAL YES; Platelet Count 118 K/mm3 (150-450); RBC Distribution Width CV 12.9 % (11.6-14.6); RBC Distribution Width SD 39.3 fl (35.1-43.9)
[2019-12-24 23:15] LABS: Differential Indicated SCAN CRITERIA MET
[2019-12-24 23:29] LABS: Internal QC Validated? YES +Cl - CLEAR BKGD; Pregnancy, Serum, hCG Quali. NEGATIVE Negative
[2019-12-24 23:33] LABS: ALB/GLOB Ratio 1.1 RATIO (0.9-2.4); AST(SGOT) 15 U/L (15-37); Alanine Aminotransfer ALT/SGPT 16 U/L (13-56); Albumin, Serum 3.2 g/dL (3.2-5.0); Alkaline Phosphatase 52 U/L (45-117); Anion Gap 7 (5-15); BUN 9 mg/dL (7-18); BUN/Creat Ratio 9.7 RATIO (10-20); Calcium,Total 7.6 mg/dL (8.5-10.1); Chloride 108 mmol/L (98-107); Creatinine, Serum 0.93 mg/dL (0.55-1.02); EST Glomerular Filtration Rate 77 mL/min (>60); Est Glom Filt Rate - Afr Amer 94 mL/min (>60); Estimated Creatinine Clearance 89.14 ml/min; Globulin 2.8 g/dL (2.2-4.2); Glucose 110 mg/dL (74-106); Lipase 47 U/L (73-393); Sodium Level 140 mmol/L (136-145)
[2019-12-24 23:34] LABS: Potassium 2.2 mmol/L (3.5-5.1)
[2019-12-24 23:43] VITALS: RESP 17
[2019-12-24] MEDS: Loperamide 2 MG Capsule 4 MG PO (23:55)
[2019-12-25 01:00] VITALS: BP 115/73; PULSE 84; RESP 17; O2SAT 99
[2019-12-25 01:51] VITALS: BP 111/68; PULSE 81; RESP 17; O2SAT 99
== END 2019-12-25 01:57 | disposition home or self-care (01) ==
PROVIDERS: Emergency Provider Emergency Medicine
DX: R11.0 Nausea (principal); R19.7 Diarrhea, unspecified; E87.6 Hypokalemia; D68.61 Antiphospholipid syndrome; F41.9 Anxiety disorder, unspecified; F32.9 Major depressive disorder, single episode, unspecified; I49.8 Other specified cardiac arrhythmias; K21.9 Gastro-esophageal reflux disease without esophagitis; J45.909 Unspecified asthma, uncomplicated; G43.909 Migraine, unspecified, not intractable, without status migrainosus; Z87.440 Personal history of urinary (tract) infections; Z79.899 Other long term (current) drug therapy; Z87.891 Personal history of nicotine dependence
CPT/HCPCS: 80053; 83690; 84703; 85025; 96361; 96372; 96374; 99285; J7030; J2405

== ENCOUNTER → 2019-12-27 17:30 | Outpatient (CLI) | payer OTHER, SELFPAY ==
[2019-12-27 13:04] VITALS: BMI 25.7
== END ==
PROVIDERS: Referring Provider Physician Assistant; Visit Provider Physician Assistant
DX: Z20.828 Contact with and (suspected) exposure to other viral communicable diseases (principal)
CPT/HCPCS: 87635; 94799; U0003

== ENCOUNTER 2020-11-29 01:42 | Emergency (ER) | payer OTHER, SELFPAY ==
[2020-09-18 16:30] VITALS: BMI 23.8
[2020-11-29 01:43] VITALS: BP 127/78; PULSE 107; RESP 14; TEMP 36.4; O2SAT 100; BMI 26.1
--- NOTE | 2020-11-29 02:21 | EDS_ITS ---
HPI History of Present Illness Chief Complaint: Headache Narrative Narrative: 25-year-old female presenting with migraine headache. She has a history of migraine headache. She states is typical of her headache. She has photophobia and phonophobia. She denies neck pain. She denies fever or chills. She denies paresthesias. She denies history of head injury. [facility] Medical History Acute maxillary sinusitis, unspecified Acute pharyngitis, unspecified Anaphylaxis due to hymenoptera venom Anxiety and depression Asthma Diarrhea GERD (gastroesophageal reflux disease) Hay fever Headache Knee pain Migraine Palpitations POTS (postural orthostatic tachycardia syndrome) Prothrombin gene mutation Seasonal allergies Severe headache Shoulder pain Stomach ulcer Syncope and collapse Home Medications magnesium oxide 500 mg capsule 500 mg PO DAILY cap 08/01/18 [History Last Taken Unknown] buspirone 15 mg tablet 15 mg PO TID tab 10/30/18 [History Last Taken Unknown] vitamin B complex 1 tab PO BID tab 05/08/19 [History Last Taken Unknown] nebivolol 10 mg tablet 5 mg PO BID #90 tab 07/04/19 [Rx Last Taken Unknown] multivitamin 1 tab PO DAILY 11/01/19 [History Last Taken Unknown] desvenlafaxine succinate [Pristiq] 75 mg PO DAILY 11/29/20 [History Last Taken Unknown] fludrocortisone 0.2 mg PO DAILY 11/29/20 [History Last Taken Unknown] Allergy/AdvReac Type Severity Reaction Status Date / Time cephalexin [From Keflex] Allergy Mild itching Verified 11/29/20 01:45 clarithromycin [From Biaxin] Allergy Hives Verified 11/29/20 01:45 fish derived Allergy Shortness Verified 11/29/20 01:45 of breath hydrocodone bitartrate Allergy Itching Verified 11/29/20 01:45 [From Vicodin] iodine Allergy Rash Verified 11/29/20 01:45 ketorolac tromethamine Allergy Shortness Verified 11/29/20 01:45 [From Toradol] of breath latex Allergy Shortness Verified 11/29/20 01:45 of breath Penicillins Allergy Shortness Verified 11/29/20 01:45 of breath shellfish derived Allergy Angioedema Verified 11/29/20 01:45 venom-honey bee Allergy Shortness Verified 11/29/20 01:45 [bee venom (honey bee)] of breath verapamil Allergy Other Verified 11/29/20 01:45 flu vaccine Allergy Unknown unknown Uncoded 11/29/20 01:45 Family History Grandfather Cancer Diabetes Grandmother Heart disease CHF Father Diabetes Heart disease open heart surgery Mother Anxiety and depression Thyroid disorder Grandmother Diabetes Surgical History History of appendectomy History of tonsillectomy Hx of cholecystectomy Status post left foot surgery Social History Smoking Status: Never smoker alcohol intake: current alcohol intake frequency: holidays/special occasions only substance use type: does not use caffeine: Yes Type: carbonated beverages what type of physical activity do you participate in: other details[place] ROS ROS ED Constitutional Constitutional ED: Denies chills or fever(s) Eyes Eyes: Reports change in vision and other Details: Photophobia ; Denies blurry vision ENT ENT ED: Reports other Details: Phonophobia ; Denies ear pain or rhinorrhea Cardiovascular Cardiovascular: Denies chest pain or palpitations Respiratory/Chest Respiratory/Chest: Denies cough or dyspnea Gastrointestinal Gastrointestinal: Reports nausea; Denies abdominal pain, diarrhea or vomiting Genitourinary Genitourinary ED: Denies dysuria or hematuria Musculoskeletal Musculoskeletal: Denies arthralgias, myalgias or neck pain Integumentary Denies abscess or rash Neurologic Neurologic: Denies headache(s) or weakness Psychiatric Psychiatric: Denies anxiety or depression EXAM Physical Exam Const Vital Signs: 11/29/20 01:43 11/29/20 03:59 11/29/20 05:52 Temperature 97.6 F L Temperature Source Temporal Pulse Rate 107 H 90 98 Respiratory Rate 14 15 15 Blood Pressure 127/78 H 113/69 111/76 Blood Pressure Mean 94 83 87 Pulse Ox 100 100 99 Oxygen Delivery Method Room Air Room Air Room Air General Appearance ED: Negative for pallor HEENT Reports normocephalic, head/scalp atraumatic and moist mucous membranes Eyes PERRL and EOMs intact bilaterally Neck no lymphadenopathy and supple Chest Wall inspection of chest normal and palpation of chest normal Resp normal respiratory effort and clear to auscultation bilaterally Auscultation: Negative for rales, rhonchi or wheezes Cardio regular rate and regular rhythm GI normal to inspection, nondistended, normoactive bowel sounds and non-distended Auscultation: normoactive bowel sounds Palpation: soft Narrative: Deferred Extremity normal to inspection General Extremety ED: Yes edema and tenderness General Extremity: edema Neuro oriented x3, CN's II-XII intact bilaterally and no sensory deficits noted Sensorium / Orientation: alert Motor Exam: strength 5/5 throughout Psych mental status grossly normal Attitude: No agitated Skin no rashes or lesions noted and no wounds General Skin Exam: Negative for jaundice or pallor MDM MDM MDM Narrative Medical decision making narrative: Patient presenting with migraine headache typical of her migraines. She was given IV fluids, Reglan, Benadryl. She has allergy to Toradol. On reevaluation patient had a headache pain of 5. I did give her some Solu-Medrol at this point. On reevaluation patient is sleeping. I woke her up and she stated that she felt ready to go home. I do not believe she needs a CT imaging of her brain. Patient discharged in stable condition. Impression: 1. Headache Discharge Plan Triage Chief Complaint: Headache ED Provider: David Cody Dx/Rx/DC Orders Prescriptions: No Action buspirone 15 mg tablet 15 mg PO TID RF: 0 vitamin B complex [B Complex 1] Tablet 1 tab PO BID RF: 0 magnesium oxide 500 mg capsule 500 mg PO DAILY RF: 0 multivitamin [One-A-Day Essential] Tablet 1 tab PO DAILY RF: 0 desvenlafaxine succinate [Pristiq] 25 mg Tablet Extended Release 24 Hr 75 mg PO DAILY RF: 0 fludrocortisone 0.1 mg tablet 0.2 mg PO DAILY RF: 0 nebivolol 10 mg tablet 5 mg PO BID Qty: 90 RF: 3 Primary Care Provider: Sara Hua
[2020-11-29] MEDS: Metoclopramide 10 MG/2 ML Vial IV (02:37)
[2020-11-29] MEDS: DiphenhydrAMINE 50 MG/ML Syringe 25 MG IV (02:39)
[2020-11-29] MEDS: 0.9% Normal Saline 1,000 ML 999 ML IV (02:40)
[2020-11-29 03:59] VITALS: BP 113/69; PULSE 90; RESP 15; O2SAT 100
[2020-11-29] MEDS: MethylPREDNISolone 125 MG/2 ML Vial IV (05:51)
[2020-11-29 05:52] VITALS: BP 111/76; PULSE 98; RESP 15; O2SAT 99
[2020-11-29 06:31] VITALS: BP 117/75; PULSE 90; RESP 14; O2SAT 95
== END 2020-11-29 06:32 | disposition home or self-care (01) ==
PROVIDERS: Emergency Provider Student in an Organized Health Care Education/Training Program; PCP Family Medicine
DX: G43.909 Migraine, unspecified, not intractable, without status migrainosus (principal); F32.9 Major depressive disorder, single episode, unspecified; F41.9 Anxiety disorder, unspecified; K21.9 Gastro-esophageal reflux disease without esophagitis; I49.8 Other specified cardiac arrhythmias; D68.52 Prothrombin gene mutation; J45.909 Unspecified asthma, uncomplicated; Z87.19 Personal history of other diseases of the digestive system; Z79.899 Other long term (current) drug therapy
CPT/HCPCS: 96361; 96374; 96375; 99283; J7030; A4216

== ENCOUNTER → 2021-01-28 | Outpatient (CLI) | payer OTHER, SELFPAY | END | disposition home or self-care (01) | LOC: LABSPEC 10:14 | PROVIDERS: PCP Family Medicine; Referring Provider Physician Assistant; Visit Provider Physician Assistant | DX: Z11.52 Encounter for screening for COVID-19 (principal) | CPT/HCPCS: 87635; U0005; U0003 ==

== ENCOUNTER 2021-03-18 17:00 | Outpatient (RCR) | payer OTHER, SELFPAY ==
--- NOTE | 2021-04-22 10:43 | HP.PT.NRP ---
JANICE GOODMAN was seen in my office for initial evaluation on 12/17/20. The following Plan of Care was established for this patient: This patient was last seen in our office 03/18/21. Pertinent comments regarding their Physical therapy will appear below: Pt. was seen in PT for DN for her HAs. Pt. has not been seen in ~ 1 month and will be DC from PT at this point in time. At this point I will be discontinuing this patient from physical therapy. I would be happy to see this patient again in the future if found appropriate by the physician. Thank you! Dilip Kohli, GALET
== END 2021-03-18 19:00 | disposition home or self-care (01) ==
LOC: PT 17:00
PROVIDERS: PCP Family Medicine; Visit Provider Family Medicine
DX: G43.909 Migraine, unspecified, not intractable, without status migrainosus (principal)

== ENCOUNTER 2021-04-29 10:57 | Emergency (ER) | payer OTHER, SELFPAY ==
[2021-04-29 10:58] VITALS: BP 108/82; PULSE 93; RESP 19; TEMP 36.4; O2SAT 99; BMI 24.8
--- NOTE | 2021-04-29 11:17 | EDS_ITS ---
HPI History of Present Illness Chief Complaint: General Illness Informant: patient and EMS Narrative Narrative: 25-year-old female with a history of pots presents to the emergency room with syncope and diarrhea. 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 States it would occasionally make her double over. Later that night she developed diarrhea. This persisted and she notes some associated nausea but no vomiting. She states whenever she eats or drinks anything she has a bout of diarrhea. The patient denies any fevers. She states that she has been passing out when she stands but not going unconscious. She denies any significant cough sore throat or runny nose. She states her doctor gave her Covid test yesterday which was negative. [facility] Medical History Acute maxillary sinusitis, unspecified Acute pharyngitis, unspecified Anaphylaxis due to hymenoptera venom Anxiety and depression Asthma Diarrhea Encounter for screening for COVID-19 GERD (gastroesophageal reflux disease) Hay fever Headache Knee pain Migraine Palpitations POTS (postural orthostatic tachycardia syndrome) Prothrombin gene mutation Seasonal allergies Severe headache Shoulder pain Stomach ulcer Syncope and collapse Home Medications magnesium oxide 500 mg capsule 500 mg PO DAILY cap 08/01/18 [History Last Taken Unknown] buspirone 15 mg tablet 15 mg PO BID tab 10/30/18 [History Last Taken Unknown] vitamin B complex 1 tab PO BID tab 05/08/19 [History Last Taken Unknown] nebivolol 10 mg tablet 5 mg PO BID #90 tab 07/04/19 [Rx Last Taken Unknown] multivitamin 1 tab PO DAILY 11/01/19 [History Last Taken Unknown] desvenlafaxine succinate [Pristiq] 75 mg PO DAILY 11/29/20 [History Last Taken Unknown] fludrocortisone 0.2 mg PO DAILY 11/29/20 [History Last Taken Unknown] cetirizine 10 mg capsule 10 mg PO DAILY #30 cap 01/25/21 [Rx Last Taken Unknown] prednisone 20 mg tablet 40 mg PO DAILY #10 tab 01/25/21 [Rx Last Taken Unknown] buspirone 30 mg PO LUNCH 04/29/21 [History Last Taken Unknown] Allergy/AdvReac Type Severity Reaction Status Date / Time cephalexin [From Keflex] Allergy Mild itching Verified 04/29/21 11:03 clarithromycin [From Biaxin] Allergy Hives Verified 04/29/21 11:03 fish derived Allergy Shortness Verified 04/29/21 11:03 of breath hydrocodone bitartrate Allergy Itching Verified 04/29/21 11:03 [From Vicodin] iodine Allergy Rash Verified 04/29/21 11:03 ketorolac tromethamine Allergy Shortness Verified 04/29/21 11:03 [From Toradol] of breath latex Allergy Shortness Verified 04/29/21 11:03 of breath Penicillins Allergy Shortness Verified 04/29/21 11:03 of breath shellfish derived Allergy Angioedema Verified 04/29/21 11:03 venom-honey bee Allergy Shortness Verified 04/29/21 11:03 [bee venom (honey bee)] of breath verapamil Allergy Other Verified 04/29/21 11:03 flu vaccine Allergy Unknown unknown Uncoded 04/29/21 11:03 Family History Grandfather Cancer Diabetes Grandmother Heart disease CHF Father Diabetes Heart disease open heart surgery Mother Anxiety and depression Thyroid disorder Grandmother Diabetes Surgical History History of appendectomy History of tonsillectomy Hx of cholecystectomy Status post left foot surgery Social History Smoking Status: Never smoker alcohol intake: current alcohol intake frequency: holidays/special occasions only substance use type: does not use caffeine: Yes Type: carbonated beverages what type of physical activity do you participate in: other details: [place] farm ROS ROS ED Constitutional Constitutional ED: Denies chills or weight loss Eyes Eyes: Denies change in vision or diplopia ENT ENT ED: Denies ear pain, rhinorrhea or sore throat Cardiovascular Cardiovascular: Reports other Details: Syncope ; Denies chest pain, orthopnea, palpitations or racing heartbeat Respiratory/Chest Respiratory/Chest: Denies cough, dyspnea or orthopnea Gastrointestinal Gastrointestinal: Reports abdominal pain, diarrhea and nausea; Denies vomiting Genitourinary Genitourinary ED: Denies dysuria, hematuria or urinary frequency Musculoskeletal Musculoskeletal: Denies arthralgias or myalgias Integumentary Denies abscess or rash Neurologic Neurologic: Denies headache(s) or weakness Psychiatric Psychiatric: Denies anxiety, depression, suicidal ideation or suicidal thoughts Endocrine Endocrinology: Denies polydipsia, polyphagia or polyuria Allergic/Immunologic Allergic/Immunologic ED: Denies mouth swelling, tongue swelling or urticaria EXAM Physical Exam Const Vital Signs: 04/29/21 10:58 04/29/21 11:19 Temperature 97.5 F L Temperature Source Oral Pulse Rate 93 Respiratory Rate 19 H Respiratory Effort Normal Non-Labored Respiratory Pattern Normal Blood Pressure 108/82 H Blood Pressure Mean 90 Pulse Ox 99 Oxygen Delivery Method Room Air Positive well nourished and well developed; Negative for obese General Appearance ED: well developed Nutritional Appearance: Negative for obese HEENT Reports normocephalic, head/scalp atraumatic, TM's clear and moist mucous membranes Negative for trauma Tympanic Membrane ED: Yes TM's clear Eyes PERRL and EOMs intact bilaterally Neck no lymphadenopathy, supple and no JVD Resp normal respiratory effort and clear to auscultation bilaterally Cardio regular rate, regular rhythm and no murmurs GI normal to inspection, nondistended, normoactive bowel sounds and non-tender Palpation: soft Back/Spine no CVA tenderness and normal ROM Extremity normal to inspection General Extremety ED: Negative for edema General Extremity: Negative for edema Neuro oriented x3 and CN's II-XII intact bilaterally Sensorium / Orientation: alert Motor Exam: strength 5/5 throughout Psych mental status grossly normal Mood & Affect: Negative for depressed or tearful Skin no rashes or lesions noted and no wounds MDM MDM MDM Narrative Medical decision making narrative: Basic labs showed a hemoglobin of 17 suggestive of concentration blood. Complains of BUN of 19 with a creatinine 1.04. Sodium potassium within normal limits. Liver enzymes normal. Patient received a liter of IV fluids and Imodium. At this point the patient appears stable. Would recommend continued Imodium as needed and oral hydration. Return if worsening or concerns Lab Data Attestation: I reviewed the patient's lab results. Labs: Laboratory Results - last 24 hr 04/29/21 04/29/21 11:06 11:06 WBC 10.5 RBC 6.00 H Hgb 17.0 H Hct 50.7 H MCV 84.5 MCH 28.3 MCHC 33.5 RDW Std Deviation 40.1 RDW Coeff of Milagros 13.0 Plt Count 220 MPV 10.2 Immature Gran % (Auto) 0.400 Neut % (Auto) 77.0 H Lymph % (Auto) 13.8 L [place] % (Auto) 6.7 Eos % (Auto) 1.8 Baso % (Auto) 0.3 Absolute Neuts (auto) 8.1 H Absolute Lymphs (auto) 1.45 Nucleated RBC % 0 Sodium 139 Potassium 3.9 Chloride 112 H Carbon Dioxide 21.0 Anion Gap 6 BUN 19 H Creatinine 1.04 H Estim Creat Clear Calc 79.02 Est GFR (MDRD) Af Amer 81 Est GFR (MDRD) Non-Af 67 BUN/Creatinine Ratio 18.3 Glucose 102 Calcium 9.0 Total Bilirubin 0.70 AST 23 ALT 22 Alkaline Phosphatase 83 Total Protein 7.8 Albumin 3.8 Globulin 4.0 Albumin/Globulin Ratio 1.0 Discharge Plan Triage Chief Complaint: General Illness ED Provider: Agustin Cedeno Dx/Rx/DC Orders Clinical Impression: POTS (postural orthostatic tachycardia syndrome), Diarrhea Instructions: ED Gastroenteritis, Viral (Adult) Prescriptions: No Action buspirone 15 mg tablet 15 mg PO BID RF: 0 vitamin B complex [B Complex 1] Tablet 1 tab PO BID RF: 0 magnesium oxide 500 mg capsule 500 mg PO DAILY RF: 0 multivitamin [One-A-Day Essential] Tablet 1 tab PO DAILY RF: 0 prednisone 20 mg tablet 40 mg PO DAILY Qty: 10 RF: 0 Zyrtec 10 mg capsule 10 mg PO DAILY Qty: 30 RF: 0 desvenlafaxine succinate [Pristiq] 25 mg Tablet Extended Release 24 Hr 75 mg PO DAILY RF: 0 fludrocortisone 0.1 mg tablet 0.2 mg PO DAILY RF: 0 buspirone 30 mg Tablet 30 mg PO LUNCH RF: 0 nebivolol 10 mg tablet 5 mg PO BID Qty: 90 RF: 3 Primary Care Provider: Sara Hua Referrals: Sara Hua MD [Primary Care Provider] -
[2021-04-29 11:28] LABS: Absolute Lymphocyte Count 1.45 X10^3/uL (0.83-4.51); Absolute Neutrophil Count 8.1 X10^3/uL (2.0-7.7); Basophil# 0.03 X10^3/uL; Basophil% 0.3 % (0-1); Eosinophil# 0.19 X10^3/uL; Eosinophils% 1.8 % (0-5); Hematocrit 50.7 % (37-47); Lymphocyte # 1.45 X10^3/ul (0.83-4.51); Lymphocyte % 13.8 % (19-41); Mean Corp Hgb Conc 33.5 g/dL (32-36); Mean Corpuscular Hgb 28.3 pg (27.0-32.0); Mean Corpuscular Volume 84.5 fL (81-99); Mean Platelet Vol. 10.2 fl (6.2-12.0); Monocyte% 6.7 % (0-10); NRBC Flagged by Analyzer 0 % (0-5); Neutrophil # 8.06 X10^3/uL (2.7-7.7); Platelet Count 220 K/mm3 (150-450); RBC Distribution Width SD 40.1 fl (35.1-43.9); White Blood Count 10.5 K/mm3 (4.4-11.0)
[2021-04-29] MEDS: Loperamide 2 MG Capsule 4 MG PO (11:29)
[2021-04-29] MEDS: 0.9% Normal Saline 1,000 ML 1000 ML IV (11:29)
[2021-04-29 11:43] LABS: AST(SGOT) 23 U/L (15-37); Alanine Aminotransfer ALT/SGPT 22 U/L (13-56); Albumin, Serum 3.8 g/dL (3.2-5.0); Alkaline Phosphatase 83 U/L (45-117); Anion Gap 6 (5-15); BUN 19 mg/dL (7-18); BUN/Creat Ratio 18.3 RATIO (10-20); Chloride 112 mmol/L (98-107); Creatinine, Serum 1.04 mg/dL (0.55-1.02); EST Glomerular Filtration Rate 67 mL/min (>60); Est Glom Filt Rate - Afr Amer 81 mL/min (>60); Estimated Creatinine Clearance 79.02 ml/min; Glucose 102 mg/dL (74-106); Potassium 3.9 mmol/L (3.5-5.1); Protein, Total 7.8 g/dL (6.4-8.2); Sodium Level 139 mmol/L (136-145)
[2021-04-29 13:04] VITALS: BP 110/64; PULSE 76; RESP 15; O2SAT 99
== END 2021-04-29 13:12 | disposition home or self-care (01) ==
PROVIDERS: Emergency Provider Emergency Medicine; PCP Family Medicine
DX: I49.8 Other specified cardiac arrhythmias (principal); R19.7 Diarrhea, unspecified; F32.A Depression, unspecified; F41.9 Anxiety disorder, unspecified; K21.9 Gastro-esophageal reflux disease without esophagitis; D68.52 Prothrombin gene mutation; J45.909 Unspecified asthma, uncomplicated; G43.909 Migraine, unspecified, not intractable, without status migrainosus; Z87.19 Personal history of other diseases of the digestive system; Z79.899 Other long term (current) drug therapy
CPT/HCPCS: 80053; 85025; 96360; 96361; 99285; J7030; A4216

== ENCOUNTER 2021-05-01 10:27 | Emergency (ER) | payer OTHER, SELFPAY ==
[2021-05-01 10:29] VITALS: BP 105/67; PULSE 83; RESP 18; TEMP 36.7; O2SAT 100; BMI 25.3
--- NOTE | 2021-05-01 10:51 | EDS_ITS ---
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 She takes nebivolol and fludrocortisone for this. She just saw her hogshead mat assembler on Tuesday with a normal checkup. She started to get GI upset that night. She saw her primary doctor on Tuesday for some diarrhea that was watery. He checked blood work that was normal. She was then seen here on Tuesday for syncope and diarrhea. Blood work was done that showed some hemoconcentration and mild dehydration. She was given IV fluids. She felt better. She went out to eat at [facility] last night. She has been eating and drinking. However she has been having more symptoms of tachycardia with standing. She gets lightheaded. She thinks she did not get enough IV fluids yesterday and is requesting IV fluids. She is able to eat and drink. However, she states if she drinks a lot of fluids it worsens the diarrhea which generally was improving. No chest pain. No palpitations. She does get tachycardia with standing though. She is not short of breath. No fevers. Her diarrhea is improving. She is not having abdominal pain. [facility] Medical History Acute maxillary sinusitis, unspecified Acute pharyngitis, unspecified Anaphylaxis due to hymenoptera venom Anxiety and depression Asthma Diarrhea Encounter for screening for COVID-19 GERD (gastroesophageal reflux disease) Hay fever Headache Knee pain Migraine Palpitations POTS (postural orthostatic tachycardia syndrome) Prothrombin gene mutation Seasonal allergies Severe headache Shoulder pain Stomach ulcer Syncope and collapse Home Medications magnesium oxide 500 mg capsule 500 mg PO DAILY cap 08/01/18 [History Last Taken Unknown] buspirone 15 mg tablet 15 mg PO BID tab 10/30/18 [History Last Taken Unknown] vitamin B complex 1 tab PO BID tab 05/08/19 [History Last Taken Unknown] nebivolol 10 mg tablet 5 mg PO BID #90 tab 07/04/19 [Rx Last Taken Unknown] multivitamin 1 tab PO DAILY 11/01/19 [History Last Taken Unknown] desvenlafaxine succinate [Pristiq] 75 mg PO DAILY 11/29/20 [History Last Taken Unknown] fludrocortisone 0.2 mg PO DAILY 11/29/20 [History Last Taken Unknown] cetirizine 10 mg capsule 10 mg PO DAILY #30 cap 01/25/21 [Rx Last Taken Unknown] prednisone 20 mg tablet 40 mg PO DAILY #10 tab 01/25/21 [Rx Last Taken Unknown] buspirone 30 mg PO LUNCH 04/29/21 [History Last Taken Unknown] Allergy/AdvReac Type Severity Reaction Status Date / Time cephalexin [From Keflex] Allergy Mild itching Verified 05/01/21 10:29 clarithromycin [From Biaxin] Allergy Hives Verified 05/01/21 10:29 fish derived Allergy Shortness Verified 05/01/21 10:29 of breath hydrocodone bitartrate Allergy Itching Verified 05/01/21 10:29 [From Vicodin] iodine Allergy Rash Verified 05/01/21 10:29 ketorolac tromethamine Allergy Shortness Verified 05/01/21 10:29 [From Toradol] of breath latex Allergy Shortness Verified 05/01/21 10:29 of breath Penicillins Allergy Shortness Verified 05/01/21 10:29 of breath shellfish derived Allergy Angioedema Verified 05/01/21 10:29 venom-honey bee Allergy Shortness Verified 05/01/21 10:29 [bee venom (honey bee)] of breath verapamil Allergy Other Verified 05/01/21 10:29 flu vaccine Allergy Unknown unknown Uncoded 05/01/21 10:29 Family History Grandfather Cancer Diabetes Grandmother Heart disease CHF Father Diabetes Heart disease open heart surgery Mother Anxiety and depression Thyroid disorder Grandmother Diabetes Surgical History History of appendectomy History of tonsillectomy Hx of cholecystectomy Status post left foot surgery Social History Smoking Status: Never smoker alcohol intake: current alcohol intake frequency: holidays/special occasions only substance use type: does not use caffeine: Yes Type: carbonated beverages what type of physical activity do you participate in: other details[place] farm ROS ROS ED Constitutional Constitutional ED: Denies chills, fever(s) or weight loss Eyes Eyes: Denies blurry vision ENT ENT ED: Denies rhinorrhea or sore throat Cardiovascular Cardiovascular: Reports racing heartbeat; Denies chest pain or palpitations Respiratory/Chest Respiratory/Chest: Denies cough or dyspnea Gastrointestinal Gastrointestinal: Reports diarrhea; Denies abdominal pain, nausea or vomiting Genitourinary Genitourinary ED: Denies dysuria, hematuria or urinary frequency Musculoskeletal Musculoskeletal: Denies myalgias Integumentary Denies rash Neurologic Neurologic: Denies headache(s), paresthesias or weakness Endocrine Endocrinology: Denies polydipsia or polyuria Allergic/Immunologic Allergic/Immunologic ED: Denies mouth swelling or urticaria EXAM Physical Exam Const Vital Signs: 05/01/21 10:29 05/01/21 10:31 Temperature 98.1 F Temperature Source Oral Pulse Rate 83 Respiratory Rate 18 Respiratory Effort Normal Non-Labored Respiratory Pattern Normal Blood Pressure 105/67 Blood Pressure Mean 79 Pulse Ox 100 Oxygen Delivery Method Room Air Positive well nourished and well developed General Appearance ED: well developed and NAD; Negative for cyanotic or diaphoretic HEENT Reports moist mucous membranes Eyes General Eye ED: Negative for pale conjunctiva or scleral icterus Neck no JVD Chest Wall inspection of chest normal Resp normal respiratory effort and clear to auscultation bilaterally Effort and Inspection: Negative for pain with movement Auscultation: Negative for rales, rhonchi or wheezes Cardio regular rate, regular rhythm and no murmurs GI normal to inspection, nondistended, normoactive bowel sounds, non-tender and n on-distended Palpation: soft Back/Spine no CVA tenderness Extremity normal to inspection General Extremety ED: Negative for edema or tenderness General Extremity: Negative for edema Neuro oriented x3 Sensorium / Orientation: alert Psych mental status grossly normal Skin no rashes or lesions noted MDM MDM MDM Narrative Medical decision making narrative: EKG shows no marked abnormalities. Even though she is on Zofran, she does not have a prolonged QTC. She is getting IV fluids. She has had 2 sets of blood work done this week. I do not think we need to repeat this. I have encouraged her to eat a regular diet, drink plenty of fluids. She will follow up with her hogshead mat assembler and primary physician as needed. EKG Initial EKG: Comments: EKG done for syncope and history of pots syndrome. EKG read by me shows a normal sinus rhythm with a rate of 75. No ectopy. No acute ST elevation or depressions. IA interval, QRS duration and QTc are normal. Discharge Plan Triage Chief Complaint: Syncope ED Provider: Chava Wagner Dx/Rx/DC Orders Clinical Impression: Acute dehydration, POTS (postural orthostatic tachycardia syndrome) Instructions: ED Dehydration (Adult) Prescriptions: No Action buspirone 15 mg tablet 15 mg PO BID RF: 0 vitamin B complex [B Complex 1] Tablet 1 tab PO BID RF: 0 magnesium oxide 500 mg capsule 500 mg PO DAILY RF: 0 multivitamin [One-A-Day Essential] Tablet 1 tab PO DAILY RF: 0 prednisone 20 mg tablet 40 mg PO DAILY Qty: 10 RF: 0 Zyrtec 10 mg capsule 10 mg PO DAILY Qty: 30 RF: 0 desvenlafaxine succinate [Pristiq] 25 mg Tablet Extended Release 24 Hr 75 mg PO DAILY RF: 0 fludrocortisone 0.1 mg tablet 0.2 mg PO DAILY RF: 0 buspirone 30 mg Tablet 30 mg PO LUNCH RF: 0 nebivolol 10 mg tablet 5 mg PO BID Qty: 90 RF: 3 Primary Care Provider: Sara Hua Referrals: Sara Hua MD [Primary Care Provider] - 3-5 Days if not improving Disposition Disposition: Home, Self Care
--- NOTE | 2021-05-01 10:51 | EKG12_ITS ---
Test Reason : Blood Pressure : / mmHG Vent. Rate : 075 BPM Atrial Rate : 075 BPM P-R Int : 166 ms QRS Dur : 086 ms QT Int : 396 ms P-R-T Axes : 058 026 008 degrees QTc Int : 442 ms Normal sinus rhythm Normal ECG Confirmed by AMY EDOUARD, JOHN ([id number]), clinical editor ELIZA LANGFORD ([id number]) on 05/05/2021 9:36:20 AM Referred By: CHRISTIANE Confirmed By:JOHN REYES MD
[2021-05-01] MEDS: 0.9% Normal Saline 1,000 ML 1000 ML IV (11:15)
[2021-05-01 11:57] VITALS: PULSE 75; RESP 18
== END 2021-05-01 12:04 | disposition home or self-care (01) ==
PROVIDERS: Emergency Provider Emergency Medicine; PCP Family Medicine
DX: I49.8 Other specified cardiac arrhythmias (principal); E86.0 Dehydration; F32.A Depression, unspecified; F41.9 Anxiety disorder, unspecified; D68.52 Prothrombin gene mutation; G43.909 Migraine, unspecified, not intractable, without status migrainosus; J45.909 Unspecified asthma, uncomplicated; K21.9 Gastro-esophageal reflux disease without esophagitis; Z87.19 Personal history of other diseases of the digestive system; Z79.899 Other long term (current) drug therapy
CPT/HCPCS: 93005; 96360; 99285; J7030

== ENCOUNTER 2021-07-14 15:54 | Outpatient (CLI) | payer OTHER, SELFPAY ==
[2021-07-14 15:57] LABS: Mucous, Urine 0 SEEN /hpf (<or=2+)
[2021-07-14 18:15] LABS: Color, Urine Yellow (Yellow); Glucose, Dipstick Normal (Normal); Ketone-Dipstick Negative (Negative); Leukocyte Esterase-Dipstick 25 /ul (Negative); Nitrite-Dipstick Negative (Negative); Occult Blood-Urine 250 /ul (Negative); Protein-Dipstick 100 mg/dl (Negative); Specific Gravity, Urine 1.015 (1.002-1.030); Urine Bilirubin Dipstick Negative (Negative); Urine Clarity Cloudy (Clear); Urine Urobilinogen Normal (Normal)
[2021-07-14 18:21] LABS: Red Blood Cells-Urine > 100 SEEN /hpf (0-5); Squamous Epithelial Cells - UA 0-5 SEEN /hpf (5-10); White Blood Cells 0-5 SEEN /hpf (0-5)
[2021-07-14 18:22] LABS: Bacteria 1+ /hpf (None Seen)
== END 2021-07-14 23:59 | disposition home or self-care (01) ==
LOC: LABSPEC 15:56
PROVIDERS: PCP Family Medicine; Referring Provider Family Medicine; Visit Provider Family Medicine
DX: R30.0 Dysuria (principal)
CPT/HCPCS: 81001; 87086; 87088

== ENCOUNTER 2021-07-15 07:07 | Outpatient (CLI) | payer OTHER, SELFPAY ==
--- NOTE | 2021-07-15 07:15 | RAD_ITS ---
STUDY: X-RAY - ABDOMEN/PELVIS REASON FOR EXAM: Female, 25 years old. Dysuria. TECHNIQUE: Two AP supine views of the abdomen and pelvis. COMPARISON: 03/22/2017. FINDINGS: The lung bases are not included. There is an unremarkable bowel gas pattern. There is no demonstrated free abdominal air. The visualized liver, spleen and kidneys are grossly normal in size and morphology. There is a surgical clip in the right upper quadrant. Question cholecystectomy. There is no abnormal calcifications. Normal soft tissue structures. Normal visualized osseous structures. RAD/Abdomen Single View IMPRESSION: Normal x-ray examination of the abdomen and pelvis. Electronically Signed: Markie Galvan DO at 23:18 EST ,
== END 2021-07-15 23:59 | disposition home or self-care (01) ==
LOC: RAD 07:09
PROVIDERS: PCP Family Medicine; Visit Provider Family Medicine
DX: R30.0 Dysuria (principal)
CPT/HCPCS: 74018

== ENCOUNTER 2021-08-13 09:00 | Outpatient (RCR) | payer OTHER, SELFPAY ==
--- NOTE | 2021-05-19 08:42 | HP.PTEVAL ---
Patient's Visit Information JANICE GOODMAN is a 25 year old F referred to Physical Therapy by Dr. Agustin Bass MD with a diagnosis of Debility, History of POTS. Date of Evaluation: 05/19/21 Physical Therapist: Dilip Kohli DPT - Visit Plan Frequency: 2x /Week Duration: 4 Weeks Plan: Start with increasing aerobic capacity working into target HR range (115- 154bpm). Add in core, BLE and B UE strengthening as toleated. Progress aerobic fitness to walk to jog to run program. - Subjective Pt. is here today for her initial evaluation with diagnosis of debility with history of POTS. Pt. has been diagnosed with POTS for a few years now and originally was not well managed, but reports having better symptoms recently. She reports overall living a more sedentary life than she would desire due to fear of passing out. 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 She has not challenged her self physically and reports being slightly fearful of having increased symptoms. 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 Pt. reports overall not much pain. Pt. reports having to run 1.5 miles in 14:15 sec, 18 push ups in 1 min, and 30 sit ups in 1 min as well. Pt. reports overall not much issues over the past few months. She has not done much running, but was starting to do a walking, but no running at this point in time. - Objective POSTURE: Pt. has decent posture in stance. Pt. has slight anterior rotated pelvis with increased lumbar lordosis. PALPATION: Normal throughout. NEURO: normal throughout. ROM: Pt. has good ROM throughout lumbar spine, Tightness in B HS, normal hip and knee ROM. MMT: RLE: ankle 5/5 throughout; knee: ext 4+/5, flexion 4+/5; hip- flexion 5-/5, abd 4+/5, ext 4+/5. LLE: ankle 5/5 throughout; knee: ext 5-/5, flexion 4+/5; hip- flexion 4+/5, abd 4+/5, ext 4+/5. Core strength- poor+. UE strength: RUE: deltoid 5-/5 throughout; pec major 4/5, mid trap/romhboids 4/5. LUE: RUE: deltoid 5-/5 throughout; pec major 4/5, mid trap/romhboids 4/5. Pt. unable to effectively do a push up. 10 consecutive sit ups. RESTING VITALS: HR 51bpm, SpO2 98%, BP: 111/55. GAIT: Pt. has normal gait pattern. 6 MWT: 1419ft. fatigue noted, SpO2 98%, HR 105bpm. Mild light headedness, resolved in 1-2 minutes. STAIRS: normal reciprocal pattern no issues. SQUAT: poor mechanics with anterior knee translation, decreased glute activation noted. Improved with VC/Tcing. - Balance/Special Test Scores Lower Extremity Functional Score: 40 6 Minute Walk Test: 1419 on T- mill. SpO2 98%, HR 105bpm. Pt. did not achieve 60% target HR zone. - Goals Goal 1:: LTG: Pt. to be instructed in HEP for both LE and UE strengthening also including progressing walk to run program. Goal Time Frame: 4-6 Weeks Goal 2:: STG: Pt. to initiate walking program, progressing to running as able. Goal Time Frame: 2-4 Weeks Goal 3:: LTG: Pt. to have increased BLE and BUE strength increased to 5/5 throughout allowing for increased ability to complete fitness testing for [employer]. Goal Time Frame: 4-6 Weeks Goal 4:: STG: Pt. to be able to run 0.25 miles with maintaining normal HR with in target zone and no signs of passing out. Goal Time Frame: 2-4 Weeks Goal 5:: LTG: Pt. to complete 30 sit ups in 1 min. Goal Time Frame: 2-4 Weeks Goal 6:: LTG: Pt. to demonstrate properly and complete 10 push ups. Goal Time Frame: 2-4 Weeks - Rehabilitation Potential Physical Therapy Diagnosis: Pt. has signs and symptoms consistent with debility secondary to POTS. Pt. has done minimal physical exerting activities recently. She has decreased aerobic capacity and decreased tolerance to physical activities. 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 Rehabilitation Potential: Excellent - Anticipated Interventions Patient/Client Instruction: Educate patient on: Condition, Plan of Care, Risk Factors, Benefits of Fitness Program For the Purpose of:: To foster healthy habits, To improve decision making, To facilitate caregiver knowledge, To improve self management, To prevent re-injury, To improve ability to perform tasks related to life management Therapeutic Exercise to Include: Strength training, Power training, Endurance training, Body mechanics, Dynamic Lumbar Stabilization For the Purpose of:: To decrease pain, To increase ROM, To improve nutrient delivery to tissue, To increase oxygenation perfusion, To improve muscle performance and motor function, To decrease soft tissue restriction, To increase flexibility/ROM, To improve endurance Thank you for the opportunity to evaluate your patient. For Medicare and Medicare HMO plans, please review the plan of care and approve it. It will need to be FAXED BACK to us at [phone] for Medicare purposes. For Medicare only, by signing this I certify the plan of care. Please let me know if there are questions or concerns regarding this plan of care. Physician Signature: Date:
== END 2021-08-13 19:00 | disposition home or self-care (01) ==
LOC: PT 09:00
PROVIDERS: PCP Family Medicine; Referring Provider Internal Medicine Cardiovascular Disease; Visit Provider Internal Medicine Cardiovascular Disease
DX: R53.81 Other malaise (principal); I49.8 Other specified cardiac arrhythmias
CPT/HCPCS: 97110; 97161

== ENCOUNTER 2021-12-30 14:57 | Emergency (ER) | payer OTHER, SELFPAY ==
[2021-12-30 14:57] VITALS: BP 127/78; PULSE 109; RESP 18; TEMP 38.8; O2SAT 97; BMI 23.5
[2021-12-30 15:00] VITALS: BP 127/78; PULSE 109; RESP 18; TEMP 38.8; O2SAT 97
--- NOTE | 2021-12-30 15:39 | EX.ED.VIS.HA ---
HPI History of Present Illness Chief Complaint: Headache Informant: patient Narrative Narrative: Presenting with increasing migraine symptoms today. Photophobia phonophobia. Nausea without vomiting. Reports 2 days ago myalgias right ear pain. She reports did a home COVID testing this morning that was negative. She presented here more for her migraines. She had COVID when it first started she is nonvaccinated. She states mild cough today, however states yesterday had a right along with troopers when she choked on a potato chip receiving Heimlich. No trouble breathing. No vomiting or diarrhea. No influenza vaccine this year. Prior similar symptoms: Yes [facility] Medical History Acute maxillary sinusitis, unspecified Acute pharyngitis, unspecified Anaphylaxis due to hymenoptera venom Anxiety and depression Asthma Diarrhea Encounter for screening for COVID-19 GERD (gastroesophageal reflux disease) Hay fever Headache Knee pain Migraine Palpitations POTS (postural orthostatic tachycardia syndrome) Prothrombin gene mutation Seasonal allergies Severe headache Shoulder pain Skin lesion of neck Stomach ulcer Syncope and collapse URI (upper respiratory infection) Home Medications magnesium oxide 500 mg capsule 500 mg PO DAILY 08/01/18 [History Last Taken Unknown] buspirone 15 mg tablet 15 mg PO BID depression 10/30/18 [History Last Taken Unknown] vitamin B complex (B Complex 1 tablet) 1 tab PO BID supplementation 05/08/19 [History Last Taken Unknown] nebivolol 10 mg tablet 5 mg PO BID POTS #90 tabs 07/04/19 [Rx Last Taken Unknown] multivitamin (One-A-Day Essential tablet) 1 tab PO DAILY 11/01/19 [History Last Taken Unknown] desvenlafaxine succinate 25 mg tablet,extended release 24 hr (Pristiq) 75 mg PO DAILY 11/29/20 [History Last Taken Unknown] fludrocortisone 0.1 mg tablet 0.2 mg PO DAILY 11/29/20 [History Last Taken Unknown] cetirizine 10 mg capsule (Zyrtec) 10 mg PO DAILY #30 caps 01/25/21 [Rx Last Taken Unknown] buspirone 30 mg tablet 30 mg PO LUNCH 04/29/21 [History Last Taken Unknown] doxycycline monohydrate 100 mg capsule 100 mg PO BID #20 caps 08/15/21 [Rx Last Taken Unknown] Allergy/AdvReac Type Severity Reaction Status Date / Time cephalexin [From Keflex] Allergy Mild itching Verified 12/30/21 15:00 clarithromycin [From Biaxin] Allergy Hives Verified 12/30/21 15:00 fish derived Allergy Shortness Verified 12/30/21 15:00 of breath hydrocodone bitartrate Allergy Itching Verified 12/30/21 15:00 [From Vicodin] Influenza Virus Vaccines Allergy Other Verified 12/30/21 16:40 iodine Allergy Rash Verified 12/30/21 15:00 ketorolac tromethamine Allergy Shortness Verified 12/30/21 15:00 [From Toradol] of breath latex Allergy Shortness Verified 12/30/21 15:00 of breath Penicillins Allergy Shortness Verified 12/30/21 15:00 of breath shellfish derived Allergy Angioedema Verified 12/30/21 15:00 venom-honey bee Allergy Shortness Verified 12/30/21 15:00 [bee venom (honey bee)] of breath verapamil Allergy Other Verified 12/30/21 15:00 flu vaccine Allergy Unknown unknown Uncoded 12/30/21 15:00 Family History Grandfather Cancer Diabetes Grandmother Heart disease CHF Father Diabetes Heart disease open heart surgery Mother Anxiety and depression Thyroid disorder Grandmother Diabetes Surgical History History of appendectomy History of tonsillectomy Hx of cholecystectomy Status post left foot surgery Social History Smoking Status: Never smoker alcohol intake: current alcohol intake frequency: holidays/special occasions only substance use type: does not use caffeine: Yes Type: carbonated beverages what type of physical activity do you participate in: other details: [place] a farm ROS ROS ED Constitutional Constitutional ED: Reports fever(s); Denies chills or sweats Eyes Eyes: Denies change in vision ENT ENT ED: Denies dysphagia or sore throat Cardiovascular Cardiovascular: Denies chest pain, leg edema, palpitations or racing heartbeat Respiratory/Chest Respiratory/Chest: Denies cough, dyspnea or dyspnea on exertion Gastrointestinal Gastrointestinal: Reports nausea; Denies abdominal pain, diarrhea or vomiting Genitourinary Genitourinary ED: Denies dysuria, hematuria or urinary frequency Musculoskeletal Musculoskeletal: Denies back pain, extremity pain or neck pain Integumentary Denies rash or wounds Neurologic Neurologic: Reports headache(s); Denies paresthesias or weakness EXAM Physical Exam Const Vital Signs: 12/30/21 14:57 12/30/21 15:00 12/30/21 17:16 Temperature 101.8 F H 101.8 F H 99.7 F H Temperature Source Temporal Temporal Oral Pulse Rate 109 H 109 H Respiratory Rate 18 18 Blood Pressure 127/78 H 127/78 H Blood Pressure Mean 94 94 Pulse Ox 97 97 Oxygen Delivery Method Room Air Room Air 12/30/21 18:22 Temperature Temperature Source Pulse Rate 85 Respiratory Rate 15 Blood Pressure Blood Pressure Mean Pulse Ox 99 Oxygen Delivery Method Positive well nourished and well developed Constitutional Narrative: Nontoxic. General Appearance ED: well developed and NAD HEENT Reports TM's clear and moist mucous membranes HEENT Narrative: No swelling of canals TMs normal bilaterally. normocephalic and atraumatic Tympanic Membrane ED: Yes TM's clear Eyes PERRL, EOMs intact bilaterally and conjunctivae normal General Eye ED: Yes normal appearance of both eyes Neck no lymphadenopathy, supple and no meningeal signs Neck Narrative: No meningismus. General: Negative for tenderness Chest Wall Chest: Negative for tenderness Resp normal respiratory effort and normal air movement Effort and Inspection: symmetric chest movement; Negative for respiratory distress Cardio regular rate, regular rhythm and no murmurs Peripheral Pulses: pulses 2+ throughout GI normal to inspection, nondistended, normoactive bowel sounds and non-tender Palpation: Negative for guarding or rebound tenderness present Back/Spine no CVA tenderness and no thoracic nor lumbar tenderness Extremity normal to inspection General Extremety ED: Negative for edema or tenderness General Extremity: Negative for edema Neuro oriented x3, CN's II-XII intact bilaterally and no sensory deficits noted Sensorium / Orientation: awake and alert Skin no rashes or lesions noted and no wounds MDM MDM MDM Narrative Medical decision making narrative: Patient febrile in the ED. nontoxic no signs of meningismus. Offered PCR COVID and influenza but she declines. She would like only treatment for her migraines. Multiple allergies as tolerated Reglan and Benadryl in the past. Fluids and Tylenol also ordered. Allergic to Toradol. Will reevaluate. There are some improvement with Reglan and Benadryl. Additional Depakote IV was given with significant improvement. She is feeling better. She was previous seen neurology who retired. Currently followed by PCP. She will be given neurology for follow-up with her migraine history. She will continue Tylenol at home. All questions were answered. Discharge Plan Triage Chief Complaint: Headache ED Provider: Davide Florian Dx/Rx/DC Orders Clinical Impression: Headache, migraine, Myalgia, Fever Instructions: ED Fever Control (Adult), ED, Migraine (Classical) Prescriptions: No Action buspirone 15 mg tablet 15 mg PO BID vitamin B complex [B Complex 1] Tablet 1 tab PO BID magnesium oxide 500 mg capsule 500 mg PO DAILY multivitamin [One-A-Day Essential] Tablet 1 tab PO DAILY Zyrtec 10 mg capsule 10 mg PO DAILY Qty: 30 0RF doxycycline monohydrate 100 mg capsule 100 mg PO BID Qty: 20 0RF Rx Instructions: no Magnesium products while on this medication; do not start until 08/22/2021 and only if still symptomatic then desvenlafaxine succinate [Pristiq] 25 mg Tablet Extended Release 24 Hr 75 mg PO DAILY fludrocortisone 0.1 mg tablet 0.2 mg PO DAILY Label Comments: TAKE 2 TABLETS BY MOUTH ONCE DAILY buspirone 30 mg Tablet 30 mg PO LUNCH nebivolol 10 mg tablet 5 mg PO BID Qty: 90 3RF Primary Care Provider: Allen Smart Referrals: Allen Smart MD [Primary Care Provider] - Julio Cesar Ames MD [Non-Staff] - 1-2 Weeks Disposition Disposition: Home, Self Care Discharge Date/Time: 12/30/21 18:22
[2021-12-30] MEDS: Acetaminophen 500 MG Tablet 1000 MG PO (15:58)
[2021-12-30] MEDS: 0.9% Normal Saline 1,000 ML 999 ML IV (15:59)
[2021-12-30] MEDS: DiphenhydrAMINE 50 MG/ML Syringe 25 MG IV (15:59)
[2021-12-30] MEDS: Metoclopramide 10 MG/2 ML Vial IV (16:01)
[2021-12-30 17:16] VITALS: TEMP 37.6
[2021-12-30 18:22] VITALS: PULSE 85; RESP 15; O2SAT 99
== END 2021-12-30 18:22 | disposition home or self-care (01) ==
PROVIDERS: Emergency Provider Emergency Medicine; PCP Family Medicine; Visit Provider Emergency Medicine
DX: G43.909 Migraine, unspecified, not intractable, without status migrainosus (principal); D68.52 Prothrombin gene mutation; F41.9 Anxiety disorder, unspecified; F32.A Depression, unspecified; K21.9 Gastro-esophageal reflux disease without esophagitis; I49.8 Other specified cardiac arrhythmias; J45.909 Unspecified asthma, uncomplicated; Z28.310 Unvaccinated for COVID-19; Z87.19 Personal history of other diseases of the digestive system; Z79.899 Other long term (current) drug therapy; Z86.16 Personal history of COVID-19
CPT/HCPCS: 96361; 96365; 96366; 96375; 99283; J7030; A4216

== ENCOUNTER 2021-12-31 08:49 | Emergency (ER) | payer OTHER, SELFPAY ==
[2021-12-31 08:50] VITALS: BP 100/62; PULSE 107; RESP 17; TEMP 36.3; O2SAT 95; BMI 27.0
--- NOTE | 2021-12-31 09:19 | CT_ITS ---
STUDY: CT BRAIN WITHOUT CONTRAST REASON FOR EXAM: Female, 26 years old. Headache RADIATION DOSAGE (If Supplied By Facility): CTDIvol = ( 44.99 ) mGy, DLP = ( 796.11 ) mGycm TECHNIQUE: Transaxial CT imaging of the brain was performed without administration of intravenous contrast material. Individualized dose optimization techniques were used for this CT. COMPARISON: Comparison is made with prior study 03/05/2019. FINDINGS: Normal soft tissue structures. Normal calvarium. Normal size ventricles and extra-axial spaces for the patient''s age. Normal white matter tracts of the cerebral hemispheres. There are small punctate calcifications of the bilateral basal ganglia. The differential diagnostic considerations includes: Fahrs disease, or endocrine disorders (hyperparathyroidism, hypoparathyroidism, pseudohypoparathyroidism). The incidental discovery of basal ganglia calcifications in a patient less than 50 years of age merits investigation. Normal brainstem. Normal cerebellum. There is no intracranial hemorrhage. There are no findings of an acute ischemic infarction. Normal visualized paranasal sinuses. CT/Brain/Head without Contrast IMPRESSION: Small punctate calcifications in the basal ganglia bilaterally. There has been no change. Electronically Signed: Jitendra Chester MD at 10:04 EDT ,
--- NOTE | 2021-12-31 09:25 | EDS_ITS ---
HPI <ANDREA Ng - Last Filed: 12/31/21 10:41> History of Present Illness Chief Complaint: Headache Narrative Narrative: 26-year-old female with history of POTS syndrome, asthma, anxiety, bipolar, history of migraine headaches presents to the emergency department with ongoing migraine headache. Patient was here yesterday received a migraine cocktail as well as Decadron, patient states that she did have complete relief of her migraine however at 3 AM today, she had worsening symptoms of her migraine. Patient also states that 2 days ago she choked on a piece of food, as she had a syncopal episode any Heimlich maneuver had to be completed for her to get the foreign body out. Patient states that she has been feeling wheezy ever since. She denies any fevers or chills. Denies any vision changes. Patient states she is sensitive to light and feels nauseated. Patient states this is typical of her migraines however she has not seen a neurologist in several years. PFSH <ANDREA Ng - Last Filed: 12/31/21 10:41> [facility] Medical History Acute maxillary sinusitis, unspecified Acute pharyngitis, unspecified Anaphylaxis due to hymenoptera venom Anxiety and depression Asthma Diarrhea Encounter for screening for COVID-19 GERD (gastroesophageal reflux disease) Hay fever Headache Knee pain Migraine Palpitations POTS (postural orthostatic tachycardia syndrome) Prothrombin gene mutation Seasonal allergies Severe headache Shoulder pain Skin lesion of neck Stomach ulcer Syncope and collapse URI (upper respiratory infection) Home Medications magnesium oxide 500 mg capsule 500 mg PO DAILY 08/01/18 [History Last Taken Unknown] buspirone 15 mg tablet 15 mg PO BID depression 10/30/18 [History Last Taken Unknown] vitamin B complex (B Complex 1 tablet) 1 tab PO BID supplementation 05/08/19 [History Last Taken Unknown] nebivolol 10 mg tablet 5 mg PO BID POTS #90 tabs 07/04/19 [Rx Last Taken Unknown] multivitamin (One-A-Day Essential tablet) 1 tab PO DAILY 11/01/19 [History Last Taken Unknown] desvenlafaxine succinate 25 mg tablet,extended release 24 hr (Pristiq) 75 mg PO DAILY 11/29/20 [History Last Taken Unknown] fludrocortisone 0.1 mg tablet 0.2 mg PO DAILY 11/29/20 [History Last Taken Unknown] cetirizine 10 mg capsule (Zyrtec) 10 mg PO DAILY #30 caps 01/25/21 [Rx Last Taken Unknown] buspirone 30 mg tablet 30 mg PO LUNCH 04/29/21 [History Last Taken Unknown] doxycycline monohydrate 100 mg capsule 100 mg PO BID #20 caps 08/15/21 [Rx Last Taken Unknown] clindamycin HCl 150 mg capsule 450 mg PO TID 7 days #63 caps 12/31/21 [Rx Last Taken Unknown] Allergy/AdvReac Type Severity Reaction Status Date / Time cephalexin [From Keflex] Allergy Mild itching Verified 12/31/21 08:49 clarithromycin [From Biaxin] Allergy Hives Verified 12/31/21 08:49 fish derived Allergy Shortness Verified 12/31/21 08:49 of breath hydrocodone bitartrate Allergy Itching Verified 12/31/21 08:49 [From Vicodin] Influenza Virus Vaccines Allergy Other Verified 12/31/21 08:49 iodine Allergy Rash Verified 12/31/21 08:49 ketorolac tromethamine Allergy Shortness Verified 12/31/21 08:49 [From Toradol] of breath latex Allergy Shortness Verified 12/31/21 08:49 of breath Penicillins Allergy Shortness Verified 12/31/21 08:49 of breath shellfish derived Allergy Angioedema Verified 12/31/21 08:49 venom-honey bee Allergy Shortness Verified 12/31/21 08:49 [bee venom (honey bee)] of breath verapamil Allergy Other Verified 12/31/21 08:49 flu vaccine Allergy Unknown unknown Uncoded 12/31/21 08:49 Family History Grandfather Cancer Diabetes Grandmother Heart disease CHF Father Diabetes Heart disease open heart surgery Mother Anxiety and depression Thyroid disorder Grandmother Diabetes Surgical History History of appendectomy History of tonsillectomy Hx of cholecystectomy Status post left foot surgery Social History Smoking Status: Never smoker alcohol intake: current alcohol intake frequency: holidays/special occasions only substance use type: does not use caffeine: Yes Type: carbonated beverages what type of physical activity do you participate in: other details[place] ROS <ANDREA Ng - Last Filed: 12/31/21 10:41> ROS ED ROS Narrative Constitutional: Negative for fever, chills, weight loss, weakness Eyes: Negative for vision loss, vision change, double vision. Positive for photosensitive ENT: Negative for any sore throat, ear pain, congestion Cardiovascular: Negative for any chest pain, tightness, palpitations Respiratory: Negative for any cough, sputum production, hemoptysis, dyspnea, dyspnea on exertion, orthopnea. Positive for wheezing Gastrointestinal: Negative for any abdominal pain, vomiting, diarrhea, constipation, blood in stool, blood in vomit. Positive for nausea : Negative for any urinary frequency, dysuria, retention, blood in urine Muscle skeletal: Negative for any muscle joint pain, stiffness, myalgias, a rthralgias, neck pain, back pain Neurological: Negative for any numbness or tingling, dizziness. Positive for headache, syncope Skin: Negative for any rashes, lumps, itching, abrasions, lacerations Psychiatric: Negative for any depression, anxiety, stress, suicidal ideation, homicidal ideation Hematologic: Negative for any easy bruising, excessive bruising, easy bleeding Allergies: Negative for any eczema, hives, rash EXAM <ANDREA Ng - Last Filed: 12/31/21 10:41> Physical Exam Narrative Exam Narrative: Vital signs reviewed. HEET: Head normocephalic atraumatic, TMs clear bilaterally. Posterior pharynx is clear, moist mucous membranes. Nares clear bilaterally. Pupils equal round reactive to light. Neck: Supple with no lymphadenopathy or tenderness. No signs of meningismus, negative jolt sign. Cardiac: Regular rate and rhythm no murmurs gallops or rubs, equal peripheral pulses bilaterally. Respiratory: Patient has crackles to the right lower lobe remainder of the pulmonary exam is clear. No chest tenderness. Abdomen: Soft, nontender, nondistended. No abdominal bruit or pulsatile masses. No hepatosplenomegaly Extremities: No peripheral edema, no signs of gross trauma or deformity. Active full range of motion of all extremities. Neuro: Cranial nerves II through XII intact, no focal neurological deficits. NIH score 0 Skin: Clean dry and intact with no rash, purpura, petechiae, vesicles or pustules. Backs/flank: No CVA tenderness, no midline spinal tenderness, no deformity. Psych: Normal mood and affect. No SI, HI or acute psychosis. Const Vital Signs: 12/31/21 08:50 12/31/21 10:58 Temperature 97.3 F L Temperature Source Temporal Pulse Rate 107 H 100 Respiratory Rate 17 18 Blood Pressure 100/62 99/64 Blood Pressure Mean 74 Pulse Ox 95 97 Oxygen Delivery Method Room Air <Dr. David Cody DO - Last Filed: 12/31/21 15:28> Physical Exam Const Vital Signs: 12/31/21 08:50 12/31/21 10:58 Temperature 97.3 F L Temperature Source Temporal Pulse Rate 107 H 100 Respiratory Rate 17 18 Blood Pressure 100/62 99/64 Blood Pressure Mean 74 Pulse Ox 95 97 Oxygen Delivery Method Room Air MDM <ANDREA Ng - Last Filed: 12/31/21 10:41> [facility] Lab Data Labs: Laboratory Results - last 24 hr 12/31/21 12/31/21 12/31/21 09:30 09:30 09:30 WBC 8.5 RBC 4.25 Hgb 12.2 Hct 35.4 L MCV 83.3 MCH 28.7 MCHC 34.5 RDW Std Deviation 38.5 RDW Coeff of Milagros 12.7 Plt Count 139 L MPV 10.0 Immature Gran % (Auto) 0.500 Neut % (Auto) 77.3 H Lymph % (Auto) 14.1 L [place] % (Auto) 7.9 Eos % (Auto) 0.0 Baso % (Auto) 0.2 Absolute Neuts (auto) 6.6 Absolute Lymphs (auto) 1.20 Nucleated RBC % 0 Sodium 135 L Potassium 3.6 Chloride 105 Carbon Dioxide 23.0 Anion Gap 7 BUN 8 Creatinine 0.84 Estim Creat Clear Calc 96.96 Est GFR (MDRD) Af Amer 104 Est GFR (MDRD) Non-Af 86 BUN/Creatinine Ratio 9.6 L Glucose 95 Calcium 8.3 L Urine Color Yellow Urine Clarity Sl. Cloudy Urine pH 6.5 Ur Specific Red [place] 1.015 Urine Protein 100 H Urine Glucose (UA) Normal Urine Ketones 50 H Urine Occult Blood 150 H Urine Nitrite Negative Urine Bilirubin Negative Urine Urobilinogen 8 H Ur Leukocyte Esterase 100 H Urine RBC 0-5 SEEN Urine WBC 0-5 SEEN Ur Squamous Epith Cells 10-25 SEEN Urine Bacteria 0 SEEN Urine Mucus 2+ Urine Test Negative Radiography Diagnostic Testing: Clinical Impression(s) from Imaging Studies Brain CT 12/31/21 09:19 IMPRESSION: Small punctate calcifications in the basal ganglia bilaterally. There has been no change. Electronically Signed: Jitendra Chester MD at 10:04 EDT , Chest X-Ray 12/31/21 09:50 IMPRESSION: Infiltration in the superior segment of the right lower lobe suggestive of a pneumonic infiltrate. Radiographic follow-up recommended. Electronically Signed: Jitendra Chester MD at 10:13 EDT , Treatment and Re-Evaluation Narrative: Patient appears well, patient appears nontoxic, vital signs are stable. Patient presents to the emergency department for ongoing migraine headache, as well as a cough, concern for pneumonia secondary to having a choking episode 2 days ago. Patient was seen here yesterday, did have relief of her headache however she returned with a similar headache. Due to this patient being a bounce back, further work-up was completed. Patient did receive some basic laboratory values, patient CBC, chemistries were unremarkable, patient's urinalysis was negative for any infection patient is not . Patient did receive a CT scan of the brain, this showed that there is been no change, no acute abnormality. Patient did receive IV fluids, IV Benadryl, Compazine, this did greatly improve the patient's headache. Patient also received a chest x-ray, this did show an infiltration in the superior segment of the right lower lobe suggestive of pneumonia. Patient is not septic, patient is not hypoxic. She will be treated for aspiration pneumonia, she will be treated with clindamycin for 7 days. She is instructed to follow-up with her PCP, she will also follow- up with the neurology referral that she was given yesterday. Patient verbally understands the importance of follow-up. <Dr. David Cody, DO - Last Filed: 12/31/21 15:28> [facility] MDM Narrative Medical decision making narrative: This patient was seen with a PA/HAND I CUTTER Individually assessed they patient including history and physical. I have reviewed everything on the chart that is available and agree with the documentation provided by the PA/HAND I CUTTER including discussion about the assessment, treatment plan, discussion, and return precautions. This is a well-appearing 26-year-old female presenting with headache. She did have concerning symptoms of fever the other day and was tested for COVID-19 however this was negative. When she is reevaluated for headache after this she did not want any COVID testing. Today her vital signs are stable and she is afebrile. She will be treated with Compazine and Benadryl which did help her pain last time. She does report that she had a choking episode a few days ago where she is concerned she could have aspirated. Overall her blood work is normal. Urinalysis is negative. Because of her ongoing headache CT of the brain was performed and this is negative for acute findings. Chest x-ray on my interpretation shows an infiltrate in the right lower lobe, and with her recent choking episode I believe she is to be treated for aspiration pneumonia. She is allergic to Augmentin so she will be started on clindamycin with the first dose in the ER. Return precautions were discussed. Lab Data Attestation: I reviewed the patient's lab results. Labs: Laboratory Results - last 24 hr 12/31/21 12/31/21 12/31/21 09:30 09:30 09:30 WBC 8.5 RBC 4.25 Hgb 12.2 Hct 35.4 L MCV 83.3 MCH 28.7 MCHC 34.5 RDW Std Deviation 38.5 RDW Coeff of Milagros 12.7 Plt Count 139 L MPV 10.0 Immature Gran % (Auto) 0.500 Neut % (Auto) 77.3 H Lymph % (Auto) 14.1 L [place] % (Auto) 7.9 Eos % (Auto) 0.0 Baso % (Auto) 0.2 Absolute Neuts (auto) 6.6 Absolute Lymphs (auto) 1.20 Nucleated RBC % 0 Sodium 135 L Potassium 3.6 Chloride 105 Carbon Dioxide 23.0 Anion Gap 7 BUN 8 Creatinine 0.84 Estim Creat Clear Calc 96.96 Est GFR (MDRD) Af Amer 104 Est GFR (MDRD) Non-Af 86 BUN/Creatinine Ratio 9.6 L Glucose 95 Calcium 8.3 L Urine Color Yellow Urine Clarity Sl. Cloudy Urine pH 6.5 Ur Specific Red [place] 1.015 Urine Protein 100 H Urine Glucose (UA) Normal Urine Ketones 50 H Urine Occult Blood 150 H Urine Nitrite Negative Urine Bilirubin Negative Urine Urobilinogen 8 H Ur Leukocyte Esterase 100 H Urine RBC 0-5 SEEN Urine WBC 0-5 SEEN Ur Squamous Epith Cells 10-25 SEEN Urine Bacteria 0 SEEN Urine Mucus 2+ Urine Test Negative Radiography Diagnostic Testing: Clinical Impression(s) from Imaging Studies Brain CT 12/31/21 09:19 IMPRESSION: Small punctate calcifications in the basal ganglia bilaterally. There has been no change. Electronically Signed: Jitendra Chester MD at 10:04 EDT , Chest X-Ray 12/31/21 09:50 IMPRESSION: Infiltration in the superior segment of the right lower lobe suggestive of a pneumonic infiltrate. Radiographic follow-up recommended. Electronically Signed: Jitendra Chester MD at 10:13 EDT , Discharge Plan Triage Chief Complaint: Headache ED Midlevel Provider: Kevin Urias ED Provider: David Cody Dx/Rx/DC Orders Clinical Impression: Headache, migraine, Aspiration pneumonia, History of choking Instructions: ED, Migraine (Classical), ED Pneumonia (Adult), ED Rebound Headache Prescriptions: New clindamycin HCl 150 mg capsule 450 mg PO TID 7 Days Qty: 63 0RF No Action buspirone 15 mg tablet 15 mg PO BID vitamin B complex [B Complex 1] Tablet 1 tab PO BID magnesium oxide 500 mg capsule 500 mg PO DAILY multivitamin [One-A-Day Essential] Tablet 1 tab PO DAILY Zyrtec 10 mg capsule 10 mg PO DAILY Qty: 30 0RF doxycycline monohydrate 100 mg capsule 100 mg PO BID Qty: 20 0RF Rx Instructions: no Magnesium products while on this medication; do not start until 08/22/2021 and only if still symptomatic then desvenlafaxine succinate [Pristiq] 25 mg Tablet Extended Release 24 Hr 75 mg PO DAILY fludrocortisone 0.1 mg tablet 0.2 mg PO DAILY Label Comments: TAKE 2 TABLETS BY MOUTH ONCE DAILY buspirone 30 mg Tablet 30 mg PO LUNCH nebivolol 10 mg tablet 5 mg PO BID Qty: 90 3RF Primary Care Provider: Allen Smart Referrals: Allen Smart MD [Primary Care Provider] - Activity Restrictions/Additional Instructions: You need to follow-up with neurology, you also need a primary care physician. Please return for any worsening fever, chills, nausea vomiting Disposition Disposition: Home, Self Care Discharge Date/Time: 12/31/21 11:01
[2021-12-31 09:36] LABS: Bacteria 0 SEEN /hpf (None Seen)
[2021-12-31] MEDS: 0.9% Normal Saline 1,000 ML 1000 ML IV (09:36)
[2021-12-31] MEDS: DiphenhydrAMINE 50 MG/ML Syringe 25 MG IV (09:36)
[2021-12-31] MEDS: proCHLORPERazine 10 MG/2 ML Vial IV (09:37)
[2021-12-31 09:39] LABS: Color, Urine Yellow (Yellow); Glucose, Dipstick Normal (Normal); Ketone-Dipstick 50 mg/dl (Negative); Leukocyte Esterase-Dipstick 100 /ul (Negative); Nitrite-Dipstick Negative (Negative); Occult Blood-Urine 150 /ul (Negative); Protein-Dipstick 100 mg/dl (Negative); Specific Gravity, Urine 1.015 (1.002-1.030); Urine Bilirubin Dipstick Negative (Negative); Urine Clarity Sl. Cloudy (Clear); Urine Urobilinogen 8 mg/dl (Normal); Urine pH 6.5 (5.0 - 8.0)
[2021-12-31 09:43] LABS: Internal QC Validated? YES +Cl - CLEAR BKGD; Pregnancy, Urine Negative Negative
[2021-12-31 09:46] LABS: Mucous, Urine 2+ /hpf (<or=2+); Red Blood Cells-Urine 0-5 SEEN /hpf (0-5); Squamous Epithelial Cells - UA 10-25 SEEN /hpf (5-10); White Blood Cells 0-5 SEEN /hpf (0-5)
[2021-12-31 09:48] LABS: Absolute Neutrophil Count 6.6 X10^3/uL (2.0-7.7); Basophil# 0.02 X10^3/uL; Basophil% 0.2 % (0-1); Hematocrit 35.4 % (37-47); Hemoglobin 12.2 g/dL (12.0-15.0); Lymphocyte % 14.1 % (19-41); Mean Corp Hgb Conc 34.5 g/dL (32-36); Mean Corpuscular Hgb 28.7 pg (27.0-32.0); Mean Corpuscular Volume 83.3 fL (81-99); Monocyte# 0.67 X10^3/uL; Monocyte% 7.9 % (0-10); NRBC Flagged by Analyzer 0 % (0-5); Neutrophil % 77.3 % (47-70); Platelet Count 139 K/mm3 (150-450); RBC Distribution Width CV 12.7 % (11.6-14.6); RBC Distribution Width SD 38.5 fl (35.1-43.9); Red Blood Count 4.25 M/mm3 (4.2-5.4); White Blood Count 8.5 K/mm3 (4.4-11.0)
--- NOTE | 2021-12-31 09:50 | RAD_ITS ---
STUDY: X-RAY CHEST REASON FOR EXAM: Female, 26 years old. Wheezing TECHNIQUE: PA and lateral views of the chest. COMPARISON: Comparison is made with prior study dated 08/07/2015. FINDINGS: There now is evidence of a infiltrate in the superior segment of the right lower lobe. Follow-up is recommended. There is no demonstrated pleural abnormality. Normal size heart. Normal mediastinum and zeeshan. Normal visualized pulmonary arteries. Normal visualized aortic arch and descending thoracic aorta. Normal visualized thoracic spine. Normal visualized ribs, clavicles, and shoulders. There is no demonstrated abnormality of the visualized soft tissue structures of the upper abdomen. RAD/Chest PA and Lateral IMPRESSION: Infiltration in the superior segment of the right lower lobe suggestive of a pneumonic infiltrate. Radiographic follow-up recommended. Electronically Signed: Jitendra Chester MD at 10:13 EDT ,
[2021-12-31 09:59] LABS: Anion Gap 7 (5-15); BUN 8 mg/dL (7-18); BUN/Creat Ratio 9.6 RATIO (10-20); Calcium,Total 8.3 mg/dL (8.5-10.1); Chloride 105 mmol/L (98-107); Creatinine, Serum 0.84 mg/dL (0.55-1.02); EST Glomerular Filtration Rate 86 mL/min (>60); Est Glom Filt Rate - Afr Amer 104 mL/min (>60); Estimated Creatinine Clearance 96.96 ml/min; Glucose 95 mg/dL (74-106); Potassium 3.6 mmol/L (3.5-5.1); Sodium Level 135 mmol/L (136-145)
[2021-12-31 10:58] VITALS: BP 99/64; PULSE 100; RESP 18; O2SAT 97
== END 2021-12-31 11:01 | disposition home or self-care (01) ==
PROVIDERS: Nurse Practitioner; Emergency Provider Student in an Organized Health Care Education/Training Program; PCP Family Medicine; Visit Provider Student in an Organized Health Care Education/Training Program
DX: G43.909 Migraine, unspecified, not intractable, without status migrainosus (principal); J69.0 Pneumonitis due to inhalation of food and vomit; F31.9 Bipolar disorder, unspecified; D68.52 Prothrombin gene mutation; I49.8 Other specified cardiac arrhythmias; J45.909 Unspecified asthma, uncomplicated; F41.9 Anxiety disorder, unspecified; Z87.19 Personal history of other diseases of the digestive system; K21.9 Gastro-esophageal reflux disease without esophagitis; Z79.899 Other long term (current) drug therapy
CPT/HCPCS: 70450; 71046; 80048; 81001; 81025; 85025; 96361; 96374; 99282; J7030

== ENCOUNTER → 2022-06-08 | Outpatient (CLI) | payer BC, SELFPAY ==
[2022-06-08 15:58] LABS: Absolute Lymphocyte Count 2.13 X10^3/uL (0.83-4.51); Absolute Neutrophil Count 4.6 X10^3/uL (2.0-7.7); Basophil# 0.04 X10^3/uL; Basophil% 0.5 % (0-1); Eosinophil# 0.44 X10^3/uL; Eosinophils% 5.7 % (0-5); Hematocrit 41.6 % (37-47); Hemoglobin 13.3 g/dL (12.0-15.0); Lymphocyte # 2.13 X10^3/ul (0.83-4.51); Lymphocyte % 27.4 % (19-41); Mean Corpuscular Hgb 27.7 pg (27.0-32.0); Mean Corpuscular Volume 86.7 fL (81-99); Mean Platelet Vol. 10.6 fl (6.2-12.0); Monocyte# 0.49 X10^3/uL; Monocyte% 6.3 % (0-10); NRBC Flagged by Analyzer 0 % (0-5); Neutrophil # 4.64 X10^3/uL (2.7-7.7); Neutrophil % 59.7 % (47-70); Platelet Count 205 K/mm3 (150-450); RBC Distribution Width CV 12.9 % (11.6-14.6); RBC Distribution Width SD 40.6 fl (35.1-43.9); RET-HE 33.3 pg (30-35); Reticulocyte Count 2.08 % (0.5-1.5); White Blood Count 7.8 K/mm3 (4.4-11.0)
[2022-06-08 16:16] LABS: ALB/GLOB Ratio 1.2 RATIO (0.9-2.4); AST(SGOT) 28 U/L (15-37); Alanine Aminotransfer ALT/SGPT 32 U/L (13-56); Albumin, Serum 3.8 g/dL (3.2-5.0); Alkaline Phosphatase 75 U/L (45-117); Anion Gap 9 (5-15); BUN 14 mg/dL (7-18); BUN/Creat Ratio 14.9 RATIO (10-20); Calcium,Total 8.9 mg/dL (8.5-10.1); Chloride 103 mmol/L (98-107); Creatinine, Serum 0.94 mg/dL (0.55-1.02); EST Glomerular Filtration Rate 75 mL/min (>60); Est Glom Filt Rate - Afr Amer 91 mL/min (>60); Ferritin 29 ng/mL (8-252); Globulin 3.3 g/dL (2.2-4.2); Glucose 68 mg/dL (74-106); Iron 47 ug/dL (50-170); Iron Binding Capacity,Total 328 ug/dL (250-450); Potassium 3.7 mmol/L (3.5-5.1); Protein, Total 7.1 g/dL (6.4-8.2); Sodium Level 139 mmol/L (136-145); Thyroid Stim Hormone (TSH) 0.98 uIU/mL (0.358-3.74)
[2022-06-08 16:23] LABS: Erythrocyte Sedimentation Rate 10 mm/hr (0-30)
[2022-06-08 17:00] LABS: Vitamin B12 773 pg/mL (211-911); Vitamin D,25 Hydroxy 74.3 ng/mL
== END | disposition home or self-care (01) ==
LOC: MFPLAB 12:01
PROVIDERS: PCP Family Medicine; Visit Provider Family Medicine
DX: D64.9 Anemia, unspecified (principal); R53.83 Other fatigue
CPT/HCPCS: 36415; 80053; 82306; 82533; 82607; 82728; 83540; 83550; 84439; 84443; 85025; 85045; 85652

== ENCOUNTER → 2022-12-10 | Outpatient (CLI) | payer OTHER, SELFPAY ==
--- NOTE | 2022-12-10 09:53 | RAD_ITS ---
EXAM: XR LEFT ANKLE COMPLETE, 3 OR MORE VIEWS CLINICAL INDICATION: left ankle injury TECHNIQUE: Frontal, lateral and oblique views of the left ankle. COMPARISON: No relevant prior studies available. FINDINGS: BONES/JOINTS: There is slight widening of the medial joint compartment on the mortise view compared to lateral compartment, 4 mm medially as compared to 3 mm laterally. This may be chronic. No visible joint effusion or fracture. Proximal metatarsals appear intact. No sclerotic or destructive changes observed. SOFT TISSUES: Unremarkable. No radiopaque foreign body. No significant soft tissue swelling. RAD/Ankle min 3 Views IMPRESSION: 1. No significant soft tissue swelling, fracture or joint effusion. 2. Slight asymmetry of the ankle joint, uncertain chronicity. Electronically Signed: Mana Cherry MD at 8:43 EDT ,
== END | disposition home or self-care (01) ==
LOC: MTRAD 09:52
PROVIDERS: PCP Family Medicine; Referring Provider Family Medicine; Visit Provider Family Medicine
DX: M25.572 Pain in left ankle and joints of left foot (principal)
CPT/HCPCS: 73610

== ENCOUNTER 2022-12-31 13:00 | Outpatient (RCR) | payer OTHER, SELFPAY ==
--- NOTE | 2022-12-22 17:27 | HP.PTEVAL_ITS ---
Patient's Visit Information Visit Information Visit Information: JANICE GOODMAN is a 27 year old F referred to Physical Therapy by Dr. Allen Smart MD with a diagnosis of B plantar fasciitis. Date of Evaluation: 12/09/22 Physical Therapist: Dilip Kohli DPT Visit Plan Frequency: 1x/Week Duration: 6 Weeks Plan: Start with graston to B plantar fascia, foot intrinsic strengthening, post tib strengthening. May use US to reduce symptoms initially. Due to high cost of orthotics we talked about getting a OTC orthotic at local [facility] [employer]) and better fitting/supportive shoes. Pt. consents. Subjective Subjective: Pt. is here today for her initial evaluation with diagnosis of B plantar fasciitis and pes planus. Pt. has been seen in the past for her plantar fasciitis. Pt. reports that she had been doing well for a few years, but recently changed jobs which requires a lot more standing. She had been wearing boots for her job which did well, but now is back to wearing tennis shoes and had been previously wearing orthotics. Her current ones have broken down a bit. Pt. reports pain in B distal LEs, but is also having pain in her B HS. Pt. denies N/T, no history of back pain. Pt. has not tried any exercises or stretching yet. Pt. is hopeful to reduce symptoms in order to tolerate standing at work better without increase in symptoms. 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 Pain R plantar fascia: Pain Intensity (Out of 10): 3 Pain Intensity Range: 2 and 6 L plantar fascia: Pain Intensity (Out of 10): 3 Pain Intensity Range: 2 and 6 Objective Objective: POSTURE: Pt. has decent posture no major wt. shifting. Normal knee positioning. She does have some increased pes planus, but not severe. This does worsen in SLS, bilaterally. PALPATION: Pt. has tenderness along bilateral longitudinal arches, origin of medial plantar fascia bilaterally. Pt. does not have any pain at lateral plantar fascia. No post tib pain. No calf pain noted.\ NEURO: normal BLEs. Pt is able to rise on heels and toes. ROM: Pt. some tightness in her calf bilaterally, but bot severe, 12deg of DF RLE, 13deg LLE. Pt. has tightness in B HS as well. MMT: Pt. has 5/5 strength throughout BLEs. Slight loss 5-/5 at post tib and 5-/5 B foot flexor intrinics. GAIT: Pt. has a fairly normal gait pattern, no major antalgic pattern. She does have increased pronation during stance phase of BLEs in bare feet. Goals Goal 1:: LTG: pt. to be I with HEP. Goal Time Frame: 2-4 Weeks Goal 2:: LTG: Pt. to have increased foot intrinsic and post tib strength to 5/5 throughout. Goal Time Frame: 4-6 Weeks Goal 3:: LTG: Pt. to be able to complete all standing activities at work without increase in B foot pain. Goal Time Frame: 4-6 Weeks Goal 4:: LTG: pt. to be able to walk without increase in foot pain. Goal Time Frame: 4-6 Weeks Rehabilitation Potential Physical Therapy Diagnosis: Pt. has signs and symptoms consistent with B plantar fasciitis. Pt. would benefit from a new orthotics and foot intrinsic and post tib strengthening to assist with supporting her longitudinal arch reducing her pes planus in stance. Rehabilitation Potential: Excellent Anticipated Interventions Patient/Client Instruction: Educate patient on: Condition, Plan of Care, Risk Factors and Benefits of Fitness Program For the Purpose of:: To foster healthy habits, To improve decision making, To facilitate caregiver knowledge, To improve self management, To prevent re-injury and To improve ability to perform tasks related to life management Therapeutic Exercise to Include: Strength training, Body mechanics, Flexibilty training, Passive ROM and Active ROM For the Purpose of:: To decrease pain, To increase ROM, To improve nutrient delivery to tissue, To increase oxygenation perfusion, To improve muscle performance and motor function, To improve health of tissue, To decrease soft tissue restriction and To increase flexibility/ROM Manual Therapy Techniques to Include: Functional dry needling and Soft tissue mobilization Comment: cross friction massage For the Purpose of:: To decrease pain, To increase ROM, To improve nutrient delivery to tissue, To increase oxygenation perfusion, To improve muscle performance and motor function, To improve gait and locomotor functions and To increase flexibility/ROM Ultrasound (thermal/non thermal): Yes For the Purpose of:: To decrease pain and To increase ROM Text: Thank you for the opportunity to evaluate your patient. For Medicare and Medicare HMO plans, please review the plan of care and approve it. It will need to be FAXED BACK to us at [phone] for Medicare purposes. For Medicare only, by signing this I certify the plan of care. Please let me know if there are questions or concerns regarding this plan of care. Physician Signature: Date:
== END 2022-12-31 19:00 | disposition home or self-care (01) ==
LOC: PT 13:00
PROVIDERS: PCP Family Medicine; Referring Provider Family Medicine; Visit Provider Family Medicine
DX: M72.2 Plantar fascial fibromatosis (principal); M21.40 Flat foot [pes planus] (acquired), unspecified foot
CPT/HCPCS: 97161

== ENCOUNTER 2023-01-23 14:58 | Emergency (ER) | payer OTHER, SELFPAY ==
[2023-01-23 14:59] VITALS: BP 111/68; PULSE 74; RESP 18; TEMP 36.4; O2SAT 98; BMI 30.2
[2023-01-23] MEDS: predniSONE 20 MG Tablet 60 MG PO (15:50)
--- NOTE | 2023-01-23 15:51 | EX.ED.DYSGE1 ---
HPI History of Present Illness Chief Complaint: Itching Narrative Narrative: 27-year-old female presents with generalized pruritus and itching, questionable rash that she has had since Tuesday or Tuesday of last week, almost 6 days ago. 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 She then developed generalized itching. She took Benadryl without relief. She states that her itching is not necessarily worse at night. She had an episode like this in June where her primary care provider put her on prednisone because she was told that she came into contact something and that it entered her bloodstream. She denies any fevers or chills, no nausea or vomiting, no other symptoms. Certain areas on her body especially her limbs will itch and she will scratch them. [facility] Medical History Acute maxillary sinusitis, unspecified Acute pharyngitis, unspecified Anaphylaxis due to hymenoptera venom Anxiety and depression Asthma Diarrhea Encounter for screening for COVID-19 GERD (gastroesophageal reflux disease) Hay fever Headache Knee pain Migraine Palpitations POTS (postural orthostatic tachycardia syndrome) Prothrombin gene mutation Seasonal allergies Severe headache Shoulder pain Skin lesion of neck Stomach ulcer Syncope and collapse URI (upper respiratory infection) Home Medications magnesium oxide 500 mg capsule 500 mg PO DAILY 08/01/18 [History Last Taken Unknown] buspirone 15 mg tablet 15 mg PO BID depression 10/30/18 [History Last Taken Unknown] vitamin B complex (B Complex 1 tablet) 1 tab PO BID supplementation 05/08/19 [History Last Taken Unknown] nebivolol 10 mg tablet 5 mg (1/2 x 10 mg) PO BID POTS #90 tabs 07/04/19 [Rx Last Taken Unknown] desvenlafaxine succinate 25 mg tablet,extended release 24 hr (Pristiq) 75 mg PO DAILY 11/29/20 [History Last Taken Unknown] fludrocortisone 0.1 mg tablet 0.2 mg PO DAILY 11/29/20 [History Last Taken Unknown] cetirizine 10 mg capsule (Zyrtec) 10 mg PO DAILY #30 caps 01/25/21 [Rx Last Taken Unknown] buspirone 30 mg tablet 30 mg PO LUNCH 04/29/21 [History Last Taken Unknown] bupropion HCl 150 mg tablet,12 hr sustained-release 150 mg PO DAILY 01/23/23 [History Last Taken Unknown] coenzyme Q10 100 mg capsule (CoQ-10) 100 mg PO DAILY 01/23/23 [History Last Taken Unknown] hydroxyzine HCl 25 mg tablet 25 mg PO Q6H PRN itching #20 tabs 01/23/23 [Rx Last Taken Unknown] prednisone 20 mg tablet 40 mg (2 x 20 mg) PO DAILY #14 tabs 01/23/23 [Rx Last Taken Unknown] Allergy/AdvReac Type Severity Reaction Status Date / Time cephalexin [From Keflex] Allergy Mild itching Verified 01/08/23 08:43 clarithromycin [From Biaxin] Allergy Hives Verified 01/08/23 08:43 fish derived Allergy Shortness Verified 01/08/23 08:43 of breath hydrocodone bitartrate Allergy Itching Verified 01/08/23 08:43 [From Vicodin] Influenza Virus Vaccines Allergy Other Verified 01/08/23 08:43 iodine Allergy Rash Verified 01/08/23 08:43 ketorolac tromethamine Allergy Shortness Verified 01/08/23 08:43 [From Toradol] of breath latex Allergy Shortness Verified 01/08/23 08:43 of breath Penicillins Allergy Shortness Verified 01/08/23 08:43 of breath shellfish derived Allergy Angioedema Verified 01/08/23 08:43 venom-honey bee Allergy Shortness Verified 01/08/23 08:43 [bee venom (honey bee)] of breath verapamil Allergy Other Verified 01/08/23 08:43 Family History Grandfather Cancer Diabetes Grandmother Heart disease CHF Father Diabetes Heart disease open heart surgery Mother Anxiety and depression Thyroid disorder Grandmother Diabetes Surgical History History of appendectomy History of tonsillectomy Hx of cholecystectomy Status post left foot surgery Social History Smoking Status: Never smoker alcohol intake: current alcohol intake frequency: holidays/special occasions only substance use type: does not use caffeine: Yes Type: carbonated beverages what type of physical activity do you participate in: other details[place] ROS ROS ED ROS Narrative Constitutional: No fever, no chills. Generalized pruritus. HEENT: No sore throat. No neck pain. No loss of vision. No rhinorrhea. Cardiovascular: No chest pain. No palpitations. No pedal edema. Respiratory: No cough, no shortness of breath. Abdominal: No abdominal pain. No nausea. No vomiting. Genitourinary: No dysuria. No hematuria. Musculoskeletal: No myalgias. No arthralgias. Neurologic: No headaches. No dizziness. No lightheadedness. Skin: Denies rash. No change in color. Psychiatric: No depression. No anxiety. EXAM Physical Exam Narrative Exam Narrative: Afebrile. Vital signs noted. Nontoxic-appearing. HEENT: Normocephalic. Atraumatic. PERRL, EOMI. Neck soft and supple. No point tenderness or step off. Cardiovascular: Regular rate and rhythm. No murmurs, rubs, or gallops appreciated. Respiratory: No tachypnea. Lungs clear to auscultation bilaterally. No wheezing or stridor. Gastrointestinal: Abdomen soft, nontender, with normoactive bowel sounds. No rebound or guarding. Neurological: Awake. Alert. Nonfocal, nonlateralizing. Skin: Small raised rash on bilateral upper and lower extremities.. Normal color. No pallor. No lesions between fingers/and webspace. Musculoskeletal: No pedal edema. Full range of motion extremities. Const Vital Signs: 01/23/23 14:59 Temperature 97.5 F L Temperature Source Temporal Pulse Rate 74 Respiratory Rate 18 Blood Pressure 111/68 Blood Pressure Mean 82 Pulse Ox 98 Oxygen Delivery Method Room Air MDM MDM MDM Narrative Medical decision making narrative: I do not feel that any laboratory work is indicated. I have low suspicion for liver failure because she is not showing any other clinical signs of liver failure just the generalized pruritus. I do not feel blood cultures are indicated because there are no signs of sepsis and she is not febrile. I do not think that she has a septicemia or bacterial infection. She may have some sort of dermatitis, but I do not think that she has scabies requiring Elimite. As she had improved with steroids last time she had something like this she was given 60 mg of prednisone here in the emergency department and a burst written for the next week. She said the Benadryl was not effective so she was prescribed Atarax as an antihistamine. At this point in time, I do not feel she requires admission nor do I feel that she needs any imaging or laboratory work. I feel she can be discharged to follow-up with her primary care provider. She may need to see an sales appointment coordinator and tobacco stripper. Return instructions to the emergency department were reviewed. Disposition is discharged home in stable condition. Discharge Plan Triage Chief Complaint: Itching ED Provider: Gabriel Rodriguez Dx/Rx/DC Orders Clinical Impression: Dermatitis, Itching Instructions: ED General Allergic Reactions, ED Contact Dermatitis Prescriptions: New hydroxyzine HCl 25 mg tablet 25 mg PO Q6H PRN (Reason: itching) Qty: 20 0RF prednisone 20 mg tablet 40 mg PO DAILY Qty: 14 0RF No Action buspirone 15 mg tablet 15 mg PO BID vitamin B complex [B Complex 1] Tablet 1 tab PO BID magnesium oxide 500 mg capsule 500 mg PO DAILY Zyrtec 10 mg capsule 10 mg PO DAILY Qty: 30 0RF desvenlafaxine succinate [Pristiq] 25 mg Tablet Extended Release 24 Hr 75 mg PO DAILY fludrocortisone 0.1 mg tablet 0.2 mg PO DAILY Patient Comments: TAKE 2 TABLETS BY MOUTH ONCE DAILY buspirone 30 mg Tablet 30 mg PO LUNCH bupropion HCl 150 mg tablet sustained-release 12 hr 150 mg PO DAILY coenzyme Q10 [CoQ-10] 100 mg capsule 100 mg PO DAILY nebivolol 10 mg tablet 5 mg PO BID Qty: 90 3RF Primary Care Provider: Allen Smart Referrals: Allen Smart MD [Primary Care Provider] - 1-2 Days if not improving Disposition Disposition: Home, Self Care
[2023-01-23 15:52] VITALS: RESP 16
== END 2023-01-23 16:05 | disposition home or self-care (01) ==
PROVIDERS: Emergency Provider Emergency Medicine; PCP Family Medicine; Visit Provider Emergency Medicine
DX: L30.9 Dermatitis, unspecified (principal); F41.8 Other specified anxiety disorders; Z79.899 Other long term (current) drug therapy; Z90.49 Acquired absence of other specified parts of digestive tract; L29.9 Pruritus, unspecified
CPT/HCPCS: 99283

== ENCOUNTER 2023-05-25 18:45 | Emergency (ER) | payer OTHER, SELFPAY ==
[2023-05-25 18:46] VITALS: BP 115/89; PULSE 66; RESP 22; TEMP 35.7; O2SAT 98
--- NOTE | 2023-05-25 18:54 | EKG12_ITS ---
Test Reason : CHEST DISCOMFORT Blood Pressure : / mmHG Vent. Rate : 095 BPM Atrial Rate : 095 BPM P-R Int : 186 ms QRS Dur : 090 ms QT Int : 362 ms P-R-T Axes : 057 026 010 degrees QTc Int : 454 ms Normal sinus rhythm Nonspecific T wave abnormality Abnormal ECG Confirmed by AMY EDOUARD, JOHN ([id number]), food expeditor ELIZA LANGFORD ([id number]) on 05/27/2023 9:48:36 AM Referred By: Confirmed By:JOHN REYES MD
--- OUTSIDE RECORDS SUMMARY | 2023-05-25 20:10 | XMS RPT_ITS | CCD ---
Author Name Unknown Address [address] [place] [address] Organization [facility] Care Team Providers [facility] Name Role Phone FRANDY Feliciano, Marybeth Henson Unavailable Harper Reyna Unavailable Unavailable ANAHI FINK Primary Care Physician Alessandrava ilable Required, No Pcp Unavailable Unavailable Cici Onofre Unavailable Unavailable Jemima, Dr. Cici Barrientos Attending Unavaila tiffany Hairston, Ms. Daniele Xiong Attending Unavailab ANAHI Trevino Primary Care Unavail able CICI CHO Attending Unavailable BAM RODRIGUEZ Attending Unavailab ANAHI Trevino Primary Care Unavail able BAM RODRIGUEZ Attending UnavailANAHI Simmons Primary Care Unavail able ANAHI FINK Primary Care Physician NONE, XXXX Referring Unavailable Farrukh Vallecillo Attending Unavaila Farrukh Thomas Admitting Unavaila Agustin Wan Attending Unavailable Agustin PIRES Admitting Unavailable NONE, XXXX Referring Unavailable Agustin PIRES Attending Unavailable Agustin PIRES Admitting Unavailable NONE, XXXX Referring Unavailable Allergies Allergy Classification Reported Allergen(s) Allergy Type Date of Onset Reaction(s) Facility (3 sources) Acetaminophen / HYDROcodone; Translations: [Vicodin] Drug Allergy 03-31-2015 itchy [facility] Work Phone: (2 sources) Amoxicillin Drug Allergy 06-27-2012 [facility] Work Phone: (4 sources) Clarithromycin; Translations: [Biaxin] Drug Allergy 03-31-2015 Other [facility] Work Phone: Medications Current Medications Medication Drug Class(es) Dates Sig (Normalized) Sig (Original) BuPROPion (Eqv-Wellbutrin SR) 150 mg/12 hours oral tablet, extended release (1 source) Start: 03-18-2023 BuPROPion (Eqv-Wellbutrin SR) 150 mg/12 hours oral tablet, extended release Refills(s) 0 Start Date: 03/18/23 Status: Ordered busPIRone hydrochloride 15 mg oral tablet (14 sources) Start: 03-19-2020 take 1 tablet by mouth three times daily busPIRone 15 mg Tab 15 mg = 1 tab(s), Oral, TID, Refills(s) 0 Start Date: 03/19/20 Status: Ordered Completed/Discontinued Medications Medication Drug Class(es) Dates Sig (Normalized) Sig (Original) acetaminophen 325 mg / butalbital 50 mg oral tablet (4 sources) Barbiturate Start: 02-19-2016 End: 05-20-2016 take 1-2 tablets by mouth every four hours as needed BUTALBITAL-ACETAM INOPHEN 50-325 MG TABS 1-2 tablets by mouth every 4 hours as needed migraine per Dr. Navdeep Jaime. BUTALBITAL-ACETAM INOPHEN [id number] Agustin Pires MD acetaminophen 300 mg / butalbital 50 mg / caffeine 40 mg oral capsule (6 sources) Barbiturate, Central Nervous System Stimulant, Methylxanthine Start: 03-31-2015 End: 01-05-2016 take 2 capsules by mouth every six hours as needed FIORICET 50-300-40 MG CAPS take1-2 po every 6 hours as needed for migraines [id number] AFFEINE [id number] Zahra Garcia albuterol 0.83 mg/ml inhalant solution (8 sources) beta2-Adrenergic Agonist Start: 01-05-2016 ALBUTEROL SULFATE NEBU 90 Mcg/inh as needed ALBUTEROL SULFATE NEBU Zahra Garcia Problems Active Problems Problem Classification Problem Date Documented Date Episodic/Chronic Anxiety disorders (9 sources) Generalized anxiety disorder; Translations: [Anxiety] Onset: 03-31-2015 04-07-2015 Chronic Asthma (7 sources) Asthma 03-18-2020 Chronic Cardiac dysrhythmias (1 source) Cardiac arrhythmia; Translations: [Other specified cardiac arrhythmias] Onset: 02-02-2022 Chronic Coagulation and hemorrhagic disorders (2 sources) 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; Translations: [Other primary thrombophilia] Onset: 05-21-2015 05-21-2015 Chronic Esophageal disorders (7 sources) Gastroesophageal reflux disease 03-18-2020 Chronic Headache; including migraine (7 sources) Migraine 03-18-2020 Chronic Mood disorders (9 sources) Recurrent major depression; Translations: [Depression] Onset: 03-31-2015 04-07-2015 Chronic Other circulatory disease (14 sources) Postural orthostatic tachycardia syndrome ; Translations: [Other specified cardiac arrhythmias] Onset: 07-07-2015 07-07-2015 Episodic Other connective tissue disease (2 sources) Other muscle spasm; Translations: [Other muscle spasm] Onset: 12-06-2022 Episodic Poisoning by nonmedicinal substances (2 sources) Toxic effect of venom of other arthropod, undetermined, initial encounter; Translations: [Toxic effect of venom of other arthropod, undetermined, initial encounter] Onset: 11-21-2022 Episodic Residual codes; unclassified (1 source) Contact with and (suspected) exposure to other potentially hazardous substances 04-26-2022 Episodic Superficial injury; contusion (7 sources) Contusion of right index finger without damage to nail, initial encounter; Translations: [Contusion of right middle finger without damage to nail, initial encounter] Onset: 08-02-2022 Episodic Syncope (3 sources) Syncope and collapse; Translations: [Syncope and collapse] Onset: 05-27-2015 05-27-2015 Episodic Unclassified (2 sources) Long-term drug therapy; Translations: [Other longterm (current) drug therapy] Onset: 07-11-2015 07-11-2015 Unclassified (2 sources) EXPOSURE TO FENTANYL 04-26-2022 Past or Other Problems Problem Classification Problem Date Documented Da te Episodic/Chronic Allergic reactions (2 sources) Allergy status to penicillin; Translations: [Latex allergy status] Onset: 04-26-2022 Episodic Cardiac dysrhythmias (4 sources) Palpitations; Translations: [Palpitations] Onset: 07-07-2015 07-07-2015 Episodic Headache; including migraine (2 sources) Chronic headache disorder; Translations: [Headache] Onset: 03-31-2015 04-07-2015 Episodic Immunizations and screening for infectious disease (2 sources) Antibody studies abnormal; Translations: [Raised antibody titer] Onset: 05-21-2015 05-21-2015 Episodic Joint disorders and dislocations; trauma-related (2 sources) Tear of medial meniscus of knee; Translations: [Other tear of medial meniscus, current injury, right knee] 10-30-2012 Episodic Nonspecific chest pain (2 sources) Other chest pain; Translations: [Other chest pain] Onset: 05-03-2022 Episodic Other bone disease and musculoskeletal deformities (2 sources) Disorder of bone and cartilage, unspecified; Translations: [Disorder of bone and cartilage, unspecified] Onset: 10-22-2013 10-22-2013 Episodic Other connective tissue disease (2 sources) Iliotibial band friction syndrome; Translations: [Iliotibial band syndrome, unspecified leg] 06-29-2012 Episodic Other nervous system disorders (2 sources) Other symptoms and signs involving cognitive functions and awareness; Translations: [Oth symptoms and signs w cognitive functions and awareness] Onset: 04-26-2022 Episodic Other non-traumatic joint disorders (2 sources) Shoulder pain; Translations: [Pain in unspecified shoulder] Onset: 10-22-2013 10-22-2013 Episodic Other upper respiratory infections (2 sources) Acute frontal sinusitis; Translations: [Acute frontal sinusitis, unspecified] Onset: 03-31-2015 04-07-2015 Episodic Spondylosis; intervertebral disc disorders; other back problems (2 sources) Low back pain; Translations: [Low back pain] 06-29-2012 Episodic Sprains and strains (2 sources) Low back strain; Translations: [Sprain of ligaments of lumbar spine] 06-29-2012 Episodic Results Test Name Value Interpretation Reference Range Facil ity Vital Signs Date Time Vital Sign Value Performing Clinician Bekah salcedo 03-18-2023 11:52-0500 Blood Pressure Location Agustin PIRES [facility] 03-18-2023 11:52-0500 Diastolic blood pressure 83 mm[Hg] Agustin PIRES [facility] 03-18-2023 11:52-0500 Heart rate 64 /min Agustin PIRES [facility] 03-18-2023 11:52-0500 SaO2% (BldA) [Mass fraction] 98 % Agustin PIRES [facility] 03-18-2023 11:52-0500 Systolic blood pressure 127 mm[Hg] Agustin PIRES [facility] 05-04-2022 13:19-0500 Blood Pressure Location Farrukh Vallecillo [facility] 05-04-2022 13:19-0500 Diastolic blood pressure 89 mm[Hg] Farrukh Glasererson [facility] 05-04-2022 13:19-0500 Heart rate 73 /min Farrukh Jailynerson [facility] 05-04-2022 13:19-0500 Respiratory rate 18 /min Farrukh Vallecillo [facility] 05-04-2022 13:19-0500 SaO2% (BldA) [Mass fraction] 100 % Farrukh Jailynerson [facility] 05-04-2022 13:19-0500 Systolic blood pressure 124 mm[Hg] Farrukh Christofferson [facility] 02-02-2022 09:15-0400 Blood Pressure Location Phyllis STANG [facility] 02-02-2022 09:15-0400 Diastolic blood pressure 70 mm[Hg] Phyllis STANG [facility] 02-02-2022 09:15-0400 Heart rate 70 /min Phyllis STANG [facility] 02-02-2022 09:15-0400 Respiratory rate 18 /min Phyllis STANG [facility] 02-02-2022 09:15-0400 SaO2% (BldA) [Mass fraction] 100 % Phyllis STANG [facility] 02-02-2022 09:15-0400 Systolic blood pressure 102 mm[Hg] Phyllis WEBER [facility] 11-25-2021 11:46-0400 Blood Pressure Location Agustin Pires [facility] 11-25-2021 11:46-0400 Diastolic blood pressure 70 mm[Hg] Agustin Pires [facility] 11-25-2021 11:46-0400 Heart rate 79 /min Agustin Pires [facility] 11-25-2021 11:46-0400 Respiratory rate 18 /min Agustin Pires [facility] 11-25-2021 11:46-0400 SaO2% (BldA) [Mass fraction] 100 % Agustin Pires [facility] 11-25-2021 11:46-0400 Systolic blood pressure 106 mm[Hg] Agustin Pires [facility] 10-18-2016 15:13-0400 BMI (Body Mass Index) 25.53 kg/m2 FRANDY [facility] Work Phone: 10-18-2016 15:13-0400 BP Diastolic 62 mm[Hg] FRANDY [facility] Work Phone: 10-18-2016 15:13-0400 BP Systolic 116 mm[Hg] FRANDY [facility] Work Phone: 10-18-2016 15:13-0400 Height 170.18 cm FRANDY [facility] Work Phone: 10-18-2016 15:13-0400 Pulse (Heart Rate) 72 /min FR[facility]Y [facility] Work Phone: 10-18-2016 15:13-0400 Respiratory Rate 18 /min FRANDY [facility] Work Phone: 10-18-2016 15:13-0400 Weight 73.94 kg FRANDY [facility] Work Phone: 06-28-2016 12:45-0500 BSA (Body Surface Area) 1.99 m2 FRANDY [facility] Work Phone: 05-20-2016 14:50-0500 Pulse Oximetry 98 % FRANDY [facility] Work Phone: 03-31-2015 10:19-0500 Body Temperature 98.1 [degF] FRANDY [facility] Work Phone: Encounters Encounter Date Encounter Type Care Provider Facility Start: 03-18-2023 End: 03-19-2023 ambulatory Agustin PIRES Facility:[facility] Start: 03-18-2023 End: 03-18-2023 Patient encounter procedure Agustin PIRES [facility] Start: 02-01-2023 End: 02-18-2023 Pre-admission assessment Agustin PIRES [facility] Start: 12-06-2022 End: 12-06-2022 Emergency department patient visit [facility] Start: 11-21-2022 End: 11-21-2022 Emergency department patient visit [facility] Start: 08-02-2022 ambulatory Ms. Daniele Xiong Tachooc Jones acility:[id number] Start: 05-13-2022 End: 05-14-2022 ambulatory Agustin PIRES Facility:[facility] Start: 05-04-2022 End: 05-05-2022 ambulatory XXXX NONE Facility:[facility] Start: 05-04-2022 End: 05-04-2022 Patient encounter procedure Farrukh Vallecillo [facility] Start: 05-03-2022 End: 05-03-2022 Emergency department patient visit ANAHI SIMMS [facility] Start: 04-26-2022 End: 04-26-2022 Emergency department patient visit Cici Onofre [facility] Emergency [facility] Start: 02-02-2022 End: 02-02-2022 Patient encounter procedure Phyllis WEBER [facility] Start: 11-25-2021 End: 05-29-2022 Pre-admission assessment Agustin Pires [facility] Start: 11-25-2021 End: 11-25-2021 Patient encounter procedure Agustin Pires [facility] Procedures Date Procedure Procedure Detail Performing Clinician Start: 07-20-2016 End: 07-20-2016 Dietary management education, guidance, and counseling Marybeth Feliciano RN Start: 07-20-2016 End: 07-20-2016 VASQUEZ Pires MD Work Phone: Start: 07-20-2016 End: 07-20-2016 Follow Up Appt 3 months Agustin Pires MD Work Phone: Start: 06-28-2016 End: 06-28-2016 VASQUEZ Pires MD Work Phone: Start: 06-28-2016 End: 06-28-2016 Follow Up Appt 1 month Agustin Pires MD Work Phone: Start: 06-03-2016 End: 06-03-2016 Follow Up BP Check Catherine Smith PA-C Work Phone: Start: 05-20-2016 End: 05-20-2016 VASQUEZ Pires MD Work Phone: Start: 05-20-2016 End: 05-20-2016 Follow Up Appt 1 month Agustin Pires MD Work Phone: Start: 04-05-2016 End: 04-05-2016 VASQUEZ Pires MD Work Phone: Start: 04-05-2016 End: 04-05-2016 Follow Up Appt 1 month Agustin Pires MD Work Phone: Start: 01-05-2016 End: 01-05-2016 VASQUEZ Pires MD Work Phone: Start: 01-05-2016 End: 01-05-2016 Follow Up Appt 3 months Agustin Pires MD Work Phone: Start: 10-07-2015 End: 10-07-2015 Follow Up BP Check Agustin Pires MD Work Phone: Start: 07-11-2015 End: 07-14-2015 Choriogonadotropin ( test) [Presence] in Urine Agustin Pires MD Work Phone: Start: 07-07-2015 End: 07-07-2015 VASQUEZ Pires MD Work Phone: Start: 07-07-2015 End: 07-07-2015 Follow Up Appt 6 months Agustin Pires MD Work Phone: Start: 05-05-2015 End: 05-05-2015 Urinalysis Marybeth Feliciano RN Appendectomy Agustin Pires Cholecystectomy Agustin ashton History of tonsillectomy Raphael Pires Plan of Treatment Date Care Activity Detail Author Start: 04-12-2017 End: 04-12-2017 Appointment Appointment [facility] Work Phone: Start: 11-01-2016 End: 10-18-2016 Follow Up BP Check Follow Up BP Check [facility] Work Phone: Start: 10-18-2016 End: 10-18-2016 Appointment Appointment [facility] Work Phone: Start: 10-18-2016 End: 10-18-2016 VASQUEZ OVALLE [facility] Work Phone: Start: 10-18-2016 End: 10-18-2016 EPS Referral EPS Referral Fernando Alberto, [address] [facility], [place], [address] [facility] Work Phone: Start: 10-18-2016 End: 10-18-2016 Follow Up Appt 6 months Follow Up Appt 6 months [facility] Work Phone: Start: 07-20-2016 End: 07-20-2016 DJN DJN [facility] Work Phone: Start: 07-20-2016 End: 07-20-2016 Follow Up Appt 3 months Follow Up Appt 3 months [facility] Work Phone: Start: 06-28-2016 End: 06-28-2016 DJN DJN [facility] Work Phone: Start: 06-28-2016 End: 06-28-2016 Follow Up Appt 1 month Follow Up Appt 1 month [facility] Work Phone: Start: 06-03-2016 End: 06-03-2016 Follow Up BP Check Follow Up BP Check [facility] Work Phone: Start: 05-20-2016 End: 05-20-2016 DJN DJN [facility] Work Phone: Start: 05-20-2016 End: 05-20-2016 Follow Up Appt 1 month Follow Up Appt 1 month [facility] Work Phone: Start: 04-05-2016 End: 04-05-2016 DJN DJN [facility] Work Phone: Start: 04-05-2016 End: 04-05-2016 Follow Up Appt 1 month Follow Up Appt 1 month [facility] Work Phone: Start: 01-05-2016 End: 01-05-2016 DJN DJN [facility] Work Phone: Start: 01-05-2016 End: 01-05-2016 Follow Up Appt 3 months Follow Up Appt 3 months [facility] Work Phone: Start: 10-07-2015 End: 10-07-2015 Follow Up BP Check Follow Up BP Check [facility] Work Phone: Start: 07-11-2015 End: 07-14-2015 HCG ( test) Ql (U) *PREGU - , Urine [facility] Work Phone: Start: 07-07-2015 End: 07-07-2015 DJN DJN [facility] Work Phone: Start: 07-07-2015 End: 07-07-2015 Follow Up Appt 6 months Follow Up Appt 6 months [facility] Work Phone: Immunizations Immunization Date Immunization Notes Care Provider Preet marsh NEGATED: Highlighted row has not occurred!03-18-2023 influenza virus vaccine, unspecified formulation Agustin LEXIS [facility] Payers Date Payer Category Payer Unknown [id number] 2022 Unknown 2022 Worker's Compensation [id number] 2022 Unknown [id number] 2022 Worker's Compensation [id number] 2022 Unknown [id number] 1993 Unknown [id number] 2.16.8 [id number] 1993 Unknown [id number] [id number] 1993 Unknown [id number] 2.16. [id number] 1993 Unknown [id number] 2.16. [id number] 1993 Unknown [id number] 2.16. [id number] 1993 Unknown [id number] 2.16.8 [id number] 1993 Unknown [id number] 2.16.8 [id number] 1993 Unknown [id number] 2.16.8 [id number] Unknown [id number] Social History Date Type Detail Facility Start: 03-19-2020 End: 03-18-2023 Tobacco smoking status Never smoked tobacco (finding) [facility] Sex Assigned At Female [facility] Tobacco smoking consumption unknown [facility] Tobacco smoking status Never [facility] Functional Status Date Assessment Result Facility 03-18-[address] [facility] 05-04-[address] [facility] 02-02-2022 Functional Status N/A [facility] 11-25-2021 Functional Status N/A [facility] Hospital Discharge instructions 02-01-2022 Note Date & Type Note Facility 02-01-2022 Hospital Discharg e instructions Follow Up Care 02/01/2022 13:18:51 With:Lexis EDOUARD, Agustin Cesar Address: [address] [place] [phone] When: Unknown Comments:Keep previously scheduled apt with [facility] Progress note 03-17-2021 Note Date & Type Note Facility 03-17-2021 Note HNO ID: [id number] Author: Allison Driscoll APRN.INTAKE CLERK Service: ? Author Type: Nurse Practitioner Type: Progress Notes Filed: 03/17/2021 10:34 AM Note Text: Telemedicine Visit - Distance Health Virtual Visit Note Patient seen on [employer] Online platform. Location of patient: [place] History of Present Illness Romel uMniz is a 25 year old year old female who presents for the past 1 week with symptoms that are:Sinusitis Care Path Symptoms Worsening after 3-4 days and lasting 5-6 days; worsening or new onset fever, daytime cough, or nasal discharge after initial improvement of a viral upper respiratory infection (URI). Symptoms include: Positive for Cough, Nasal congestion, PND, Rhinorrhea, Face pain/pressure, Headache, Otalgia and Sore throat, Negative for Fever, Chills/Sweats, Hemoptysis, SOB, LEVY, Wheezing, Nausea, Emesis and Diarrhea Oral intake: eating and drinking Tobacco use: No Second hand smoke exposure: No Recent exposure to strep:No Sick contacts: no Recent travel: no OTC meds/remedies that patient has tried: motrin. 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 virus (HPV) - Biliary colic 09/04/14 - Depression on fluoxetine 40mg - Migraines - Nausea and vomiting 09/04/14 - Palpitations - PMH - PAST MEDICAL HISTORY OF Color Vision - Normal - POTS (postural orthostatic tachycardia syndrome) - Prothrombin gene mutation (HCC) 03/2014 Hetro, 3x increase DVT risk - RUQ pain 08/22/14 - SAB (spontaneous ) 2012 x2 - Syncope - Unspecified asthma(493.90) PAST SURGICAL HISTORY Procedure Laterality Date - EGD W/O BRSH SPECIMEN W/BX 08/22/14 - EGD W/O OR W/BRUSH/WASH 09/18/15 EGD (MAC) - EVENT MONITOR 06/07/2015 - LAPAROSCOPIC CHOLEYCYSTECTOMY 09/04/14 - LAPAROSCOPY, SURGICAL, APPENDECTOMY 08/26/2013 Dr. Roberts - TONSILLECTOMY HX 15 yo FAMILY HISTORY Problem Relation Age of Onset - Heart Paternal Grandfather - Diabetes Paternal Grandfather - Colon Cancer Paternal Grandfather - Diabetes Father - Asthma Father - Diabetes Maternal Grandmother - Colon Cancer Maternal Grandfather Social History Tobacco Use - Smoking status: Never Smoker - Smokeless tobacco: Never Used Substance Use Topics - Alcohol use: Yes Comment: occasionally - Drug use: No Current Outpatient Medications Medication Sig - mupirocin (BACTROBAN) 2 % ointment Apply 1 application to affected area three times daily. - busPIRone (BUSPAR) 15 mg tablet Take 15 mg by mouth four times daily. - nebivolol (BYSTOLIC) 5 mg tablet Take 5 mg by mouth twice daily. - loratadine (CLARITIN) 10 mg tablet Take 10 mg by mouth once daily. - sertraline (ZOLOFT) 100 mg tablet Take 1.5 tablets by mouth once daily. (Patient taking differently: Take 200 mg by mouth once daily. ) - amitriptyline (ELAVIL) 50 mg tablet Take 1 tablet by mouth daily at bedtime. - Needle, Disp, 25 G (BD HYPODERMIC NEEDLES) 25 gauge x 5/8 ndle Use twice daily with pre-filled heparin syringe. - magnesium oxide 400 mg cap Take 500 mg by mouth once daily. - riboflavin, vitamin B2, (VITAMIN B2) 100 mg tab Take 400 mg by mouth once daily. - VIT/IRON FUMARATE/FA ( VITAMIN ORAL) Take by mouth once daily. - albuterol 90 mcg/Actuation INHALATION Aero 2 puffs q6-8hrs prn asthma symptoms No current facility-administered medications for this visit. ALLERGIES Allergen Reactions - Cats Swelling Itchy/watery eye, swelling in eye, rash - Bees Anaphylaxis - Biaxin [Clarithromy* Other: See Comments stomache cramps - Environmental [Othe* - Flu Vaccine -* Anaphylaxis - Hydrocodone-Acetami* Other: See Comments Feels like bugs crawling on me - Iodine Itching - Latex Anaphylaxis - Penicillins Anaphylaxis - Shellfish Derived Anaphylaxis - Verapamil Other: See Comments syncope Video Exam (Examination performed via Video enabled technology) General appearance: Alert, oriented, pleasant, in NAD :Yes Ill appearing :No Lethargic appearing :No Eyes: Sclera clear :Yes Conjunctiva without erythema :Yes Ears: Tragus / outer ear tenderness by self palpation :No Oropharynx: normal, no erythema Frontal sinus tenderness by self palpation;Yes Maxillary sinus tenderness by self palpation :Yes Tender cervical adenopathy by self palpation :No Respiratory distress :No Coughing noted :No Audible wheezing noted :No ASSESSMENT/PLAN: 1. Acute pansinusitis, recurrence not specified - ICD9: 461.8, ICD10: J01.40 - Will begin treatment with Do (more content not included)... [facility] Progress note 10-17-2020 Note Date & Type Note Facility 10-17-2020 Note HNO ID: [id number] Author: Allison Driscoll APRN.INTAKE CLERK Service: ? Author Type: Nurse Practitioner Type: Progress Notes Filed: 10/17/2020 10:51 PM Note Text: Telemedicine Visit - Distance Health Virtual Visit Note Patient seen on [employer] Online platform. Location of patient: [place] History of Present Illness Romel Muniz is a 25 year old old female with a history of UTI symptoms for 2 days. Urinary symptoms ROS: Positive for Dysuria, Increase in frequency of urination, Urgency, Sense of incomplete void and Blood in urine, Negative for Fevers, Vomiting, Diarrhea, Abdominal pain , Back/Flank pain and Vaginal itch or discharge Chance of : No Menstrual period: 10/07/20 Any self-treatment attempted: No Number of previous UTI's in last 6 months:0 Number of previous UTI's in last 12 months: 0 Has also had sinus symptoms for the past week. +sinus pressure, headache, Drainage and congestion. No fever, chills or cough. 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 virus (HPV) - Biliary colic 09/04/14 - Depression on fluoxetine 40mg - Migraines - Nausea and vomiting 09/04/14 - Palpitations - PMH - PAST MEDICAL HISTORY OF Color Vision - Normal - POTS (postural orthostatic tachycardia syndrome) - Prothrombin gene mutation (HCC) 03/2014 Hetro, 3x increase DVT risk - RUQ pain 08/22/14 - SAB (spontaneous ) 2012 x2 - Syncope - Unspecified asthma(493.90) PAST SURGICAL HISTORY Procedure Laterality Date - EGD W/O BRSH SPECIMEN W/BX 08/22/14 - EGD W/O OR W/BRUSH/WASH 09/18/15 EGD (MAC) - EVENT MONITOR 06/07/2015 - LAPAROSCOPIC CHOLEYCYSTECTOMY 09/04/14 - LAPAROSCOPY, SURGICAL, APPENDECTOMY 08/26/2013 Dr. Roberts - TONSILLECTOMY HX 15 yo FAMILY HISTORY Problem Relation Age of Onset - Heart Paternal Grandfather - Diabetes Paternal Grandfather - Colon Cancer Paternal Grandfather - Diabetes Father - Asthma Father - Diabetes Maternal Grandmother - Colon Cancer Maternal Grandfather Social History Tobacco Use - Smoking status: Never Smoker - Smokeless tobacco: Never Used Substance Use Topics - Alcohol use: Yes Comment: occasionally - Drug use: No ALLERGIES Allergen Reactions - Cats Swelling Itchy/watery eye, swelling in eye, rash - Bees Anaphylaxis - Biaxin [Clarithromy* Other: See Comments stomache cramps - Environmental [Othe* - Flu Vaccine -* Anaphylaxis - Hydrocodone-Acetami* Other: See Comments Feels like bugs crawling on me - Iodine Itching - Latex Anaphylaxis - Penicillins Anaphylaxis - Shellfish Derived Anaphylaxis - Verapamil Other: See Comments syncope Current Outpatient Medications Medication Sig - mupirocin (BACTROBAN) 2 % ointment Apply 1 application to affected area three times daily. - busPIRone (BUSPAR) 15 mg tablet Take 15 mg by mouth four times daily. - nebivolol (BYSTOLIC) 5 mg tablet Take 5 mg by mouth twice daily. - loratadine (CLARITIN) 10 mg tablet Take 10 mg by mouth once daily. - sertraline (ZOLOFT) 100 mg tablet Take 1.5 tablets by mouth once daily. (Patient taking differently: Take 200 mg by mouth once daily. ) - amitriptyline (ELAVIL) 50 mg tablet Take 1 tablet by mouth daily at bedtime. - Needle, Disp, 25 G (BD HYPODERMIC NEEDLES) 25 gauge x 5/8 ndle Use twice daily with pre-filled heparin syringe. - magnesium oxide 400 mg cap Take 500 mg by mouth once daily. - riboflavin, vitamin B2, (VITAMIN B2) 100 mg tab Take 400 mg by mouth once daily. - VIT/IRON FUMARATE/FA ( VITAMIN ORAL) Take by mouth once daily. - albuterol 90 mcg/Actuation INHALATION Aero 2 puffs q6-8hrs prn asthma symptoms No current facility-administered medications for this visit. Video Exam (Examination performed via Video enabled technology) General Appearance: 25 year old yo female in NAD; not ill or toxic appearing Abdomen: non-tender by self palpation CVA Tenderness: non-tender bilaterally by self palpation Face: Tenderness over maxillary and Frontal sinuses ASSESSMENT/PLAN: 1. Acute cystitis with hematuria - ICD9: 595.0, ICD10: N30.01 (primary diagnosis) - Begin treatment with Bactrim DS BID for 7 days - Patient education for prevention given - Increase fluids - Empty bladder completely - Follow up with any new onset/worsening of symptoms - SULFAMETHOXAZOLE 800 MG-TRIMETHOPRIM 160 MG TABLET 2. Dysuria - ICD9: 788.1, ICD10: R30.0 acute 3. Other acute sinusitis, recurrence not specified - ICD9: 461.8, ICD10: (more content not included)... [facility] Evaluation + Plan note Note Date & Type Note Facility Evaluation + Plan note Future Appointments Appointment Date:12/09/2021 03:00:00 PM Scheduled Provider: Location:[facility] Appointment Type:Cardiology Nurse Visit (FT) Appointment Date:05/28/2022 01:00:00 PM Scheduled Provider:Agustin Pires MD Location:.Cardiology Clinic Appointment Type:Cardiology Follow Up (FT) [facility] Evaluation + Plan note Note Date & Type Note Facility Evaluation + Plan note Future Appointments Appointment Date:05/28/2022 01:00:00 PM Scheduled Provider:Agustin Pires MD Location:[facility] Appointment Type:Cardiology Follow Up (FT) [facility] Evaluation + Plan note Note Date & Type Note Facility Evaluation + Plan note Future Appointments Appointment Date:05/13/2022 02:15:00 PM Scheduled Provider:Agustin Pires MD Location:[facility] Appointment Type:Cardiology Follow Up (FT) Appointment Date:05/28/2022 01:00:00 PM Scheduled Provider:Agustin Pires MD Location:[facility] Appointment Type:Cardiology Follow Up (FT) [facility] Evaluation + Plan note Note Date & Type Note Facility Evaluation + Plan note Future Appointments Appointment Date:03/18/2023 11:45:00 AM Scheduled Provider:Agustin PIRES MD Location:[facility] Appointment Type:Cardiology Follow Up (FT) [facility] Hospital course Narrative Note Date & Type Note Facility Hospital course Narrative No data available for this section [facility] Hospital Discharge instructions Note Date & Type Note Facility Hospital Discharge instructions No data available for this section [facility] Progress note Note Date & Type Note Facility Progress note No data available for this section [facility] Summary Purpose Family History No Family History Records FoundNo Family History Records FoundNo Family History Records FoundNo Family History Records Found No data available for this section No data available for this section No Family History Records Found Advance Directives No Advanced Directives Records FoundNo Advanced Directives Records FoundNo Advanced Directives Records FoundNo Advanced Directives Records FoundNo Advanced Directives Records Found Procedure Findings Note HNO ID: [id number] Author: Stanislav Kapoor DPM Service: Podiatry Author Type: Physician Type: Brief Op Note Filed: 01/31/2019 12:42 PM Note Text: BRIEF OPERATIVE / PROCEDURE NOTE LOG ID: [id number] SURGERY/PROCEDURE DATE: 01/31/2019 INCISION/PROCEDURE START TIME: 12:21 PM INCISION CLOSE/PROCEDURE END TIME: SURGEON(S)/PROCEDURALIST(S) AND AMUSEMENT OR RECREATION CARD CHECKER(S): Surgeon(s) and Role: * Houston Kapoor DPM - Primary * Aristides Desir - Resident - Assisting Physician Italian Tutor: Maddie Garcia SURGERY/PROCEDURE(S): Left open plantar fasciectomy Left tarsal tunnel release ANESTHESIA: General FINDINGS: ESTIMATED BLOOD LOSS: less then ten cc SPECIMENS: none COMPLICATIONS: none PRE-OP/PRE-PROCEDURE DIAGNOSIS: tarsal tunnel chronic platnar fasciitis foot pain left POST-OP/POST-PROCEDURE DIAGNOSIS: * No post-op diagnosis entered * SIGNATURE: Houston Kapoor DPM PATIENT NAME: Romel Muniz DATE: January 31, 2019 TIME: 12:41 PM PAGER/CONTACT #: Reason for Referral * Chemical ExposureChemical Exposure Additional Source Comments INFORMATION SOURCE (unrecogn ized section and content) DATE CREATED AUTHOR AUTHOR'S ORGANIZ ATION 07/25/2021 [facility] DATE CREATED AUTHOR AUTHOR'S ORGANIZ ATION 08/12/2022 [facility] DATE CREATED AUTHOR AUTHOR'S ORGANIZ ATION 01/05/2023 [facility] DATE CREATED AUTHOR AUTHOR'S ORGANIZ ATION 04/03/2023 [facility] Care Team (unrecognized sect ion and content) Personnel Name: ANAHI FINK MD Address: [address] [address]- [place] Personnel Name: ANAHI FINK MD Address: [address] [facility] [address] [place] [phone] Personnel Name: ALEKS EDOUARD ANAHI Address: [address] [facility] [address] [place], [place] [address] Personnel Name: ALEKS EDOUARD ANAHI Address: Address: [address] [facility] [address] [place] [address] [place] Personnel Name: ALEKS EDOUARD ANAHI Address: Address: [address] [facility] [address] [place] [phone] Personnel Name: ALEKS EDOUARD ANAHI Address: Address: [address] [facility] [address] [place] [phone] Personnel Name: ALEKS EDOUARDANAHI Address: Address: [address] [facility] [address] [place] [phone]- <item> Privacy Markings (unrecogniz ed section and content) Section Author: Zee Becerra PROHIBITION ON REDISCLOSURE OF CONFIDENTIAL INFORMATION This notice accompanies a disclosure of information concerning a client made to you with the consent of such client. FOR RECORDS PERTAINING TO PATIENTS WHO ARE OR HAVE BEEN ENROLLED IN A CHEMICAL DEPENDENCY/SUBSTANCEABUSE PROGRAM, SOME INFORMATION MAY BE OMITTED. This clinical summary was aggregated from multiple sources. Caution should be exercised in using it in the provision of clinical care. This summary normalizes information from multiple sources, and as a consequence, information in this document may materially change the coding, format and clinical context of patient data. In addition, data may be omitted in some cases. CLINICAL DECISIONS SHOULD BE BASED ON THE PRIMARY CLINICAL RECORDS. [employer] provides no warranty or guarantee of the accuracy or completeness of information in this document.
--- NOTE | 2023-05-25 20:11 | EX.ED.DYSGE1 ---
HPI History of Present Illness Chief Complaint: Cold Sx Detail of Chief Complaint: Congestion, cough, asthma attack Informant: patient Onset/Context/Timing Onset: Weeks Narrative Narrative: Patient presents secondary to asthma attack and cold symptoms. She states has been sick on and off since May 03. She has sinus pressure and some chest discomfort. She is intermittently been coughing up yellow sputum. She has had some chills currently but denies fever. She did use her inhaler tonight with minimal improvement and called EMS. [facility] Medical History Acute maxillary sinusitis, unspecified Acute pharyngitis, unspecified Anaphylaxis due to hymenoptera venom Anxiety and depression Asthma Diarrhea Encounter for screening for COVID-19 GERD (gastroesophageal reflux disease) Hay fever Headache Knee pain Migraine Palpitations POTS (postural orthostatic tachycardia syndrome) Prothrombin gene mutation Seasonal allergies Severe headache Shoulder pain Skin lesion of neck Stomach ulcer Syncope and collapse URI (upper respiratory infection) Home Medications magnesium oxide 500 mg capsule 500 mg PO DAILY 08/01/18 [History Last Taken Unknown] buspirone 15 mg tablet 30 mg PO BID depression 10/30/18 [History Last Taken Unknown] vitamin B complex (B Complex 1 tablet) 1 tab PO Q24H supplementation 05/08/19 [History Last Taken Unknown] nebivolol 10 mg tablet 5 mg (1/2 x 10 mg) PO BID POTS #90 tabs 07/04/19 [Rx Last Taken Unknown] desvenlafaxine succinate 25 mg tablet,extended release 24 hr (Pristiq) 75 mg PO DAILY 11/29/20 [History Last Taken Unknown] fludrocortisone 0.1 mg tablet 0.2 mg PO DAILY 11/29/20 [History Last Taken Unknown] cetirizine 10 mg capsule (Zyrtec) 10 mg PO DAILY #30 caps 01/25/21 [Rx Last Taken Unknown] bupropion HCl 150 mg tablet,12 hr sustained-release 150 mg PO DAILY 01/23/23 [History Last Taken Unknown] coenzyme Q10 100 mg capsule (CoQ-10) 100 mg PO DAILY 01/23/23 [History Last Taken Unknown] hydroxyzine HCl 25 mg tablet 25 mg PO Q6H PRN itching #20 tabs 01/23/23 [Rx Last Taken Unknown] doxycycline monohydrate 100 mg capsule 100 mg PO BID #20 CAPSULES 05/25/23 [Rx Last Taken Unknown] Allergy/AdvReac Type Severity Reaction Status Date / Time cephalexin [From Keflex] Allergy Mild itching Verified 01/08/23 08:43 clarithromycin [From Biaxin] Allergy Hives Verified 01/08/23 08:43 fish derived Allergy Shortness Verified 01/08/23 08:43 of breath hydrocodone bitartrate Allergy Itching Verified 01/08/23 08:43 [From Vicodin] Influenza Virus Vaccines Allergy Other Verified 01/08/23 08:43 iodine Allergy Rash Verified 01/08/23 08:43 ketorolac tromethamine Allergy Shortness Verified 01/08/23 08:43 [From Toradol] of breath latex Allergy Shortness Verified 01/08/23 08:43 of breath Penicillins Allergy Shortness Verified 01/08/23 08:43 of breath shellfish derived Allergy Angioedema Verified 01/08/23 08:43 venom-honey bee Allergy Shortness Verified 01/08/23 08:43 [bee venom (honey bee)] of breath verapamil Allergy Other Verified 01/08/23 08:43 Family History Grandfather Cancer Diabetes Grandmother Heart disease CHF Father Diabetes Heart disease open heart surgery Mother Anxiety and depression Thyroid disorder Grandmother Diabetes Surgical History History of appendectomy History of tonsillectomy Hx of cholecystectomy Status post left foot surgery Social History Smoking Status: Never smoker alcohol intake: current alcohol intake frequency: holidays/special occasions only substance use type: does not use caffeine: Yes Type: carbonated beverages what type of physical activity do you participate in: other details[place] ROS ROS ED Constitutional Constitutional ED: Reports chills; Denies fever(s) Eyes Eyes: Denies change in vision or discharge from eye(s) ENT ENT ED: Reports other Details: Frontal maxillary sinus pressure ; Denies discharge from eye(s), rhinorrhea or sore throat Cardiovascular Cardiovascular: Reports chest pain; Denies palpitations Respiratory/Chest Respiratory/Chest: Reports cough, dyspnea and sputum Gastrointestinal Gastrointestinal: Denies abdominal pain, nausea or vomiting Genitourinary Genitourinary ED: Denies dysuria Musculoskeletal Musculoskeletal: Denies back pain or extremity pain Integumentary Denies Abrasions or rash Neurologic Neurologic: Reports headache(s); Denies weakness Psychiatric Psychiatric: Denies anxiety or depression Allergic/Immunologic Allergic/Immunologic ED: Denies lip swelling or urticaria EXAM Physical Exam Const Vital Signs: 05/25/23 18:46 05/25/23 20:22 05/25/23 20:26 Temperature 96.2 F L Temperature Source Temporal Pulse Rate 66 Respiratory Rate 22 H Respiratory Effort Normal Non-Labored Respiratory Pattern Normal Blood Pressure 115/89 H Blood Pressure Mean 97 Pulse Ox 98 Oxygen Delivery Method Room Air Room Air 05/25/23 20:32 05/25/23 22:39 Temperature Temperature Source Pulse Rate 68 89 Respiratory Rate 20 H 16 Respiratory Effort Respiratory Pattern Blood Pressure 118/74 Blood Pressure Mean 88 Pulse Ox 100 Oxygen Delivery Method Room Air Positive well nourished and well developed General Appearance ED: well developed HEENT Reports moist mucous membranes HEENT Narrative: Tenderness over the frontal and maxillary sinuses bilaterally. Eyes EOMs intact bilaterally Chest Wall inspection of chest normal and palpation of chest normal Resp Resp Narrative: Breath sounds mildly diminished bilaterally but no wheezing appreciated. Cardio regular rate and regular rhythm GI non-tender Extremity normal to inspection Neuro oriented x3 and no sensory deficits noted Motor Exam: strength 5/5 throughout Psych mental status grossly normal MDM MDM MDM Narrative Medical decision making narrative: Swab for COVID, influenza, and RSV will be obtained. She will be given a DuoNeb treatment here along with a portable chest x-ray to evaluate for potential infiltrate. History & Record Review Discussion w/independent historian: Patient Additional record(s) reviewed:: Prior ED visit Radiography Chest X-Ray - ED: 1 View, Read by ED Physician, Normal, Heart, Lungs and Mediastinum Diagnostic Testing: Clinical Impression(s) from Imaging Studies Chest X-Ray 05/25/23 20:28 IMPRESSION: No radiographic evidence of acute cardiopulmonary disease. Electronically Signed: Jabier Ramirez MD at 21:13 EST , EKG Initial EKG: Attestation: I personally reviewed and interpreted this EKG as follows: Interpretation: Sinus Rhythm (Sinus at 95 with no acute ischemia.) Treatment and Re-Evaluation :: Portable chest x-ray per my interpretation reveals no focal infiltrate. Radiology interpretation reviewed and agrees. COVID and RSV test is negative. Influenza test is positive for flu B. Patient will continue supportive care for influenza. She has had sinus pressure and drainage for the last 3 weeks and I will cover her with an antibiotic for sinusitis. Discharge Plan Triage Chief Complaint: Cold Sx Other Complaint: Cough ED Provider: Kalyani Perry Dx/Rx/DC Orders Clinical Impression: Influenza B, Sinusitis Instructions: ED Influenza (Adult), ED Sinusitis (Antibiotic Treatment) Prescriptions: New doxycycline monohydrate 100 mg capsule 100 mg PO BID Qty: 20 0RF No Action buspirone 15 mg tablet 30 mg PO BID vitamin B complex [B Complex 1] Tablet 1 tab PO Q24H magnesium oxide 500 mg capsule 500 mg PO DAILY Zyrtec 10 mg capsule 10 mg PO DAILY Qty: 30 0RF desvenlafaxine succinate [Pristiq] 25 mg Tablet Extended Release 24 Hr 75 mg PO DAILY fludrocortisone 0.1 mg tablet 0.2 mg PO DAILY Patient Comments: TAKE 2 TABLETS BY MOUTH ONCE DAILY bupropion HCl 150 mg tablet sustained-release 12 hr 150 mg PO DAILY coenzyme Q10 [CoQ-10] 100 mg capsule 100 mg PO DAILY hydroxyzine HCl 25 mg tablet 25 mg PO Q6H PRN (Reason: itching) Qty: 20 0RF nebivolol 10 mg tablet 5 mg PO BID Qty: 90 3RF Stand Alone Forms: ED Work / School Excuse Primary Care Provider: Allen Smart Referrals: Allen Smart MD [Primary Care Provider] - 1-2 Weeks Disposition Disposition: Home, Self Care Discharge Date/Time: 05/25/23 22:39 Capacity Legal [employer] Reflex Medical hold order details:: IF a medical hold is selected below, a suggested order for a MEDICAL HOLD will reflex upon signing the document. Next of kin: [place] law dictates a PRIORITY LIST for identifying legal decision-maker/legal next of kin in the following order (LNOK): 1st: The patient?s legal guardian, if any 2nd: The patient's spouse (if status is questionable, consult Risk Management) 3rd: The patient?s adult child(rubén) (majority, if multiple children) 4th: The patient?s parents 5th: The patient?s adult siblings (majority, if multiple children siblings)
--- NOTE | 2023-05-25 20:28 | RAD_ITS ---
EXAM: XR CHEST, 1 VIEW CLINICAL INDICATION: sob, cough TECHNIQUE: Frontal view of the chest. COMPARISON: 12/31/2021 FINDINGS: LUNGS AND PLEURAL SPACES: Unremarkable. No consolidation or edema. No pneumothorax. No effusion. HEART: Unremarkable. Cardiac silhouette not enlarged. MEDIASTINUM: Central airways and mediastinal contour are unremarkable. BONES/JOINTS: Unremarkable. No acute fracture. SOFT TISSUES: Unremarkable. RAD/Chest 1 View (Portable) IMPRESSION: No radiographic evidence of acute cardiopulmonary disease. Electronically Signed: Jabier Ramirez MD at 21:13 EST ,
[2023-05-25 20:32] VITALS: PULSE 68; RESP 20
[2023-05-25] MEDS: Ipratropium/Albuterol Sulfate 3 ML AMPUL.NEB INHALATION (20:32)
[2023-05-25] MEDS: Acetaminophen 500 MG Tablet 1000 MG PO (21:28)
[2023-05-25] MEDS: DiphenhydrAMINE 25 MG Capsule 50 MG PO (21:28)
[2023-05-25 22:39] VITALS: BP 118/74; PULSE 89; RESP 16; O2SAT 100
== END 2023-05-25 22:39 | disposition home or self-care (01) ==
PROVIDERS: Emergency Provider Emergency Medicine; PCP Family Medicine; Visit Provider Emergency Medicine
DX: J10.1 Influenza due to other identified influenza virus with other respiratory manifestations (principal); J32.9 Chronic sinusitis, unspecified; F41.8 Other specified anxiety disorders; Z79.899 Other long term (current) drug therapy; Z90.49 Acquired absence of other specified parts of digestive tract
CPT/HCPCS: 71045; 87631; 93005; 94640; 99284; J7030; A4216

== ENCOUNTER → 2023-05-30 | Outpatient (CLI) | payer OTHER, SELFPAY ==
[2023-05-30 16:15] LABS: Anion Gap 6 (5-15); BUN 8 mg/dL (7-18); BUN/Creat Ratio 9.7 RATIO (10-20); Calcium,Total 8.3 mg/dL (8.5-10.1); Chloride 109 mmol/L (98-107); Creatinine, Serum 0.82 mg/dL (0.55-1.02); EST Glomerular Filtration Rate 87 mL/min (>60); Est Glom Filt Rate - Afr Amer 105 mL/min (>60); Glucose 82 mg/dL (74-106); Potassium 3.2 mmol/L (3.5-5.1); Sodium Level 141 mmol/L (136-145)
== END | disposition home or self-care (01) ==
LOC: MFPLAB 11:50
PROVIDERS: Nurse Practitioner Family; PCP Family Medicine; Visit Provider Family Medicine
DX: Z09 Encounter for follow-up examination after completed treatment for conditions other than malignant neoplasm (principal)
CPT/HCPCS: 80048

== ENCOUNTER 2023-06-07 19:53 | Emergency (ER) | payer OTHER, SELFPAY ==
[2023-06-07 19:54] VITALS: BP 116/74; PULSE 82; RESP 16; TEMP 36.1; O2SAT 100
--- NOTE | 2023-06-07 20:15 | RAD_ITS ---
STUDY: X-RAY CHEST REASON FOR EXAM: Female, 27 years old. chest pain TECHNIQUE: Single AP portable view of the chest. COMPARISON: 05/25/2023 FINDINGS: The lungs are clear and expanded. There is no demonstrated pleural abnormality. Normal size heart. Normal mediastinum and zeeshan. Normal visualized pulmonary arteries. Normal visualized aortic arch and descending thoracic aorta. Normal visualized thoracic spine. Normal visualized ribs, clavicles, and shoulders. There is no demonstrated abnormality of the visualized soft tissue structures of the upper abdomen. RAD/Chest 1 View (Portable) IMPRESSION: Normal x-ray examination of the chest. Electronically Signed: Houston Arrieta MD at 21:30 EST ,
[2023-06-07 20:35] LABS: Absolute Lymphocyte Count 4.69 X10^3/uL (0.83-4.51); Absolute Neutrophil Count 7.1 X10^3/uL (2.0-7.7); Basophil# 0.08 X10^3/uL; Basophil% 0.6 % (0-1); Eosinophil# 0.24 X10^3/uL; Eosinophils% 1.8 % (0-5); Hematocrit 43.1 % (37-47); Hemoglobin 12.4 g/dL (12.0-15.0); Lymphocyte # 4.69 X10^3/ul (0.83-4.51); Mean Corp Hgb Conc 28.8 g/dL (32-36); Mean Corpuscular Hgb 26.3 pg (27.0-32.0); Mean Corpuscular Volume 91.5 fL (81-99); Mean Platelet Vol. 10.2 fl (6.2-12.0); Monocyte# 0.89 X10^3/uL; Monocyte% 6.8 % (0-10); NRBC Flagged by Analyzer 0 % (0-5); Neutrophil # 7.07 X10^3/uL (2.7-7.7); Neutrophil % 54.4 % (47-70); Platelet Count 231 K/mm3 (150-450); RBC Distribution Width CV 14.1 % (11.6-14.6); RBC Distribution Width SD 47.8 fl (35.1-43.9); Red Blood Count 4.71 M/mm3 (4.2-5.4)
[2023-06-07 21:01] LABS: Anion Gap 5 (5-15); BUN 16 mg/dL (7-18); BUN/Creat Ratio 16.8 RATIO (10-20); Chloride 109 mmol/L (98-107); Creatinine, Serum 0.95 mg/dL (0.55-1.02); EST Glomerular Filtration Rate 73 mL/min (>60); Est Glom Filt Rate - Afr Amer 89 mL/min (>60); Estimated Creatinine Clearance 98.96 ml/min; Glucose 109 mg/dL (74-106); Potassium 3.6 mmol/L (3.5-5.1); Sodium Level 141 mmol/L (136-145); Troponin-I HS (w/2H Reflex) 6 pg/mL (3.0-54.0)
--- OUTSIDE RECORDS SUMMARY | 2023-06-07 21:26 | XMS RPT_ITS | CCD ---
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 Navdeep Jaime. 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; Translations: [Other primary thrombophilia] Onset: 05-21-2015 [...] 03-18-2023 11:52-0500 Blood Pressure Location Agustin PIRES [facility] 03-18-2023 11:52-0500 Diastolic blood pressure 83 mm[Hg] Agustin PIRES [facility] 03-18-2023 11:52-0500 Heart rate 64 /min Agustin PIRES [facility] 03-18-2023 11:52-0500 SaO2% (BldA) [Mass fraction] 98 % Agustin PIRES [facility] 03-18-2023 11:52-0500 Systolic blood pressure 127 mm[Hg] Agustin PIRES [facility] 05-04-2022 13:19-0500 Blood Pressure Location Farrukh Vallecillo [facility] 05-04-2022 13:19-0500 Diastolic blood pressure 89 mm[Hg] Farrukh Glasererson [facility] 05-04-2022 13:19-0500 Heart rate 73 /min Farrukh Jailynerson [facility] 05-04-2022 13:19-0500 Respiratory rate 18 /min Farrukh Vallecillo [facility] 05-04-2022 13:19-0500 SaO2% (BldA) [Mass fraction] 100 % Farrukh Jailynerson [facility] 05-04-2022 13:19-0500 Systolic blood pressure 124 mm[Hg] Farrukh Christofferson [facility] 02-02-2022 09:15-0400 Blood Pressure Location Phyllis STANG [facility] 02-02-2022 09:15-0400 Diastolic blood pressure 70 mm[Hg] Phyllis STANG [facility] 02-02-2022 09:15-0400 Heart rate 70 /min Phylils STANG [facility] 02-02-2022 09:15-0400 Respiratory rate 18 /min Phyllis STANG [facility] 02-02-2022 09:15-0400 SaO2% (BldA) [Mass fraction] 100 % Phyllis STANG [facility] 02-02-2022 09:15-0400 Systolic blood pressure 102 mm[Hg] Phyllis WEBER [facility] 11-25-2021 11:46-0400 Blood Pressure Location Agustin Pires [facility] 11-25-2021 11:46-0400 Diastolic blood pressure 70 mm[Hg] Agustin Pires [facility] 11-25-2021 11:46-0400 Heart rate 79 /min Agustin Pires [facility] 11-25-2021 11:46-0400 Respiratory rate 18 /min Agustin Pires [facility] 11-25-2021 11:46-0400 SaO2% (BldA) [Mass fraction] 100 % Agustin Pires [facility] 11-25-2021 11:46-0400 Systolic blood pressure 106 mm[Hg] Agustin Pires [facility] 10-18-2016 15:13-0400 BMI (Body Mass Index) 25.53 [...] Start: 03-18-2023 End: 03-19-2023 ambulatory Agustin PIRES Facility:[facility] Start: 03-18-2023 End: 03-18-2023 Patient encounter procedure Agustin PIRES [facility] Start: 02-01-2023 End: 02-18-2023 Pre-admission assessment Agustin PIRES [facility] Start: 12-06-2022 End: 12-06-2022 Emergency department patient visit [facility] Start: 11-21-2022 End: 11-21-2022 Emergency department patient visit [facility] Start: 08-02-2022 ambulatory Ms. Daniele Xiong Tachooc Jones acility:[id number] Start: 05-13-2022 End: 05-14-2022 ambulatory Agustin PIRES Facility:[facility] Start: 05-04-2022 End: 05-05-2022 ambulatory XXXX NONE Facility:[facility] Start: 05-04-2022 End: 05-04-2022 Patient encounter procedure Farrukh Vallecillo [facility] Start: 05-03-2022 End: 05-03-2022 Emergency department patient visit ANAHI SIMMS [facility] Start: 04-26-2022 End: 04-26-2022 Emergency department patient visit [facility] Onof[facility] Start: 02-02-2022 End: 02-02-2022 Patient encounter procedure Phyllis WEBER [facility] Start: 11-25-2021 End: 05-29-2022 Pre-admission assessment Agustin Pires [facility] Start: 11-25-2021 End: 11-25-2021 Patient encounter procedure Agustin Pires [facility] Procedures Date Procedure Procedure Detail Performing Clinician [...] Author Start: 04-12-2017 End: 04-12-2017 Appointment Appointment [facility] Work Phone: Start: 11-01-2016 End: 10-18-2016 Follow Up BP Check Follow Up BP Check [facility] Work Phone: Start: 10-18-2016 End: 10-18-2016 Appointment Appointment [facility] Work Phone: Start: 10-18-2016 End: 10-18-2016 VASQUEZ OVALLE [facility] Work Phone: Start: 10-18-2016 End: 10-18-2016 EPS Referral EPS Referral Fernando Alberto, [address] [facility], [place], [address] [facility] Work Phone: Start: 10-18-2016 End: [...] Phone: Start: 05-20-2016 End: 05-20-2016 DJN DJN [facility] Work Phone: Start: 05-20-2016 End: 05-20-2016 Follow Up Appt 1 month Follow Up Appt 1 month [facility] Work Phone: Start: 04-05-2016 End: 04-05-2016 DJN DJN [facility] Work Phone: Start: 04-05-2016 End: 04-05-2016 Follow Up Appt 1 month Follow Up Appt 1 month [facility] Work Phone: Start: 01-05-2016 End: 01-05-2016 DJN DJN [facility] Work Phone: Start: 01-05-2016 End: 01-05-2016 Follow Up Appt 3 months Follow Up Appt 3 months [facility] Work Phone: Start: 10-07-2015 End: 10-07-2015 Follow Up BP Check Follow Up BP Check [facility] Work Phone: Start: 07-11-2015 End: 07-14-2015 HCG ( test) Ql (U) *PREGU - , Urine [facility] Work Phone: Start: 07-07-2015 End: 07-07-2015 DJN DJN [facility] Work Phone: Start: 07-07-2015 End: 07-07-2015 Follow Up Appt 6 months Follow Up Appt 6 months [facility] Work Phone: Immunizations Immunization Date Immunization Notes Care Provider Preet marsh NEGATED: Highlighted row has not occurred!03-18-2023 influenza virus vaccine, unspecified formulation Agustin LEXIS [facility] Payers Date Payer Category Payer Unknown [id number] 2022 Unknown 2022 Worker's Compensation [id number] 2022 Unknown [id number] 2022 Worker's Compensation [id number] 2022 Unknown [id number] 1993 Unknown [id number] 2.16.8 [id number] 1993 Unknown [id number] [id number] 1993 Unknown [id number] 2.16. [id number] 1993 Unknown [id number] 2.16. [id number] 1993 Unknown [id number] 2.16. [id number] 1993 Unknown [id number] 2.16.8 [id number] 1993 Unknown [id number] 2.16.8 [id number] 1993 Unknown [id number] 2.16.8 [id number] Unknown [id number] Social History Date Type Detail Facility Start: 03-19-2020 End: 03-18-2023 Tobacco smoking status Never smoked tobacco (finding) [facility] Sex Assigned At Female [facility] Tobacco smoking consumption unknown [facility] Tobacco smoking status Never [facility] Functional Status Date Assessment Result Facility 03-18-2023 Functional Status No [facility] 05-04-2022 Functional Status No [facility] 02-02-2022 Functional Status N/A [facility] 11-25-2021 Functional Status N/A [facility] Hospital Discharge instructions 02-01-2022 Note Date & Type Note Facility 02-01-2022 Hospital Discharg e instructions Follow Up Care 02/01/2022 13:18:51 With:Lexis EDOUARD, Agustin Cesar Address: [address] [place] [phone] When: Unknown Comments:Keep previously scheduled apt with [facility] Progress note 03-17-2021 Note Date & Type Note Facility 03-17-2021 Note HNO ID: [id number] Author: Allison Driscoll APRN.FITNESS AND WELLNESS DIRECTOR Service: ? Author Type: Nurse Practitioner Type: Progress Notes Filed: 03/17/2021 10:34 AM Note Text: Telemedicine Visit - Distance Health Virtual Visit Note Patient seen on [employer] [facility] Online platform. Location of patient: [place] History of Present Illness Romel Muniz is a 25 year old year old [...] treatment with Do (more content not included)... [facility] Progress note 10-17-2020 Note Date & Type Note Facility 10-17-2020 Note HNO ID: [id number] Author: Allison Driscoll APRN.FITNESS AND WELLNESS DIRECTOR Service: ? Author Type: Nurse Practitioner Type: Progress Notes Filed: 10/17/2020 10:51 PM Note Text: Telemedicine Visit - Distance Health Virtual Visit Note Patient seen on [employer] Online platform. Location of patient: [place] History of Present Illness Romel Muniz is [...] ICD9: 461.8, ICD10: (more content not included)... [facility] Evaluation + Plan note Note Date & Type Note Facility Evaluation + Plan note Future Appointments Appointment Date:12/09/2021 03:00:00 PM Scheduled Provider: [facility] Appointment Type:Cardiology Nurse Visit ([facility]) Appointment Date:05/28/2022 01:00:00 PM Scheduled Provider:Agustin Pires MD Location:.[facility] Clinic Appointment Type:Cardiology Follow Up (FT) [facility] Evaluation + Plan note Note Date & Type Note Facility Evaluation + Plan note Future Appointments Appointment Date:05/28/2022 01:00:00 PM Scheduled Provider:Agustin Pires MD [facility] Appointment Type:Cardiology Follow Up (FT) [facility] Evaluation + Plan note Note Date & Type Note Facility Evaluation + Plan note Future Appointments Appointment Date:05/13/2022 02:15:00 PM Scheduled Provider:Agustin Pires MD [facility] Appointment Type:Cardiology Follow Up (FT) Appointment Date:05/28/2022 01:00:00 PM Scheduled Provider:Agustin Pires MD [facility] Appointment Type:Cardiology Follow Up (FT) [facility] Evaluation + Plan note Note Date & Type Note Facility Evaluation + Plan note Future Appointments Appointment Date:03/18/2023 11:45:00 AM Scheduled Provider:Agustin PIRES MD Location[facility] Appointment Type:Cardiology Follow Up (FT) [facility] Hospital course Narrative Note Date & Type Note Facility Hospital course Narrative No data available for this section [facility] Hospital Discharge instructions Note Date & Type Note Facility Hospital Discharge instructions No data available for this section [facility] Progress note Note Date & Type Note Facility Progress note No data available for this section [facility] Summary Purpose Family History No Family History [...] Records Found Procedure Findings Note HNO ID: [id number] Author: Stanislav Kapoor DPM Service: Podiatry Author Type: Physician Type: Brief Op Note Filed: 01/31/2019 12:42 PM Note Text: BRIEF OPERATIVE / PROCEDURE NOTE LOG ID: [id number] SURGERY/PROCEDURE DATE: 01/31/2019 INCISION/PROCEDURE START TIME: 12:21 PM INCISION CLOSE/PROCEDURE END TIME: SURGEON(S)/PROCEDURALIST(S) AND SALVAGE LABORER(S): Surgeon(s) and Role: * Houston Kapoor DPM - Primary * Aristides Desir - Resident - Assisting Physician Carbon Printer: Maddie Garcia SURGERY/PROCEDURE(S): Left open plantar fasciectomy [...] DATE CREATED AUTHOR AUTHOR'S ORGANIZ ATION 07/25/2021 [facility] DATE CREATED AUTHOR AUTHOR'S ORGANIZ ATION 08/12/2022 [facility] DATE CREATED AUTHOR AUTHOR'S ORGANIZ ATION 01/05/2023 [facility] DATE CREATED AUTHOR AUTHOR'S ORGANIZ ATION 04/03/2023 [facility] Care Team (unrecognized sect ion and content) Personnel Name: ANAHI FINK MD Address: [address] [address]- [place] Personnel Name: ANAHI FINK MD Address: [address] [facility] [address] [place] [id number] Personnel Name: ALEKS EDOUARD ANAHI Address: [address] [facility] [address] [place], [place] [address] Personnel Name: ALEKS EDOUARD ANAHI Address: Address: [address] [facility] [address] [place] [address] [place] Personnel Name: ALEKS EDOUARD ANAHI Address: Address: [address] [facility] [address] [place] [id number] Personnel Name: ALEKS EDOUARD ANAHI Address: Address: [address] [facility] [address] [place] [id number] Personnel Name: ALEKS EDOUARDANAHI Address: Address: [address] [facility] [address] [place] [id number] <item> Privacy Markings (unrecogniz ed section and [...] BE BASED ON THE PRIMARY CLINICAL RECORDS. [employer] provides no warranty or guarantee of the accuracy or completeness of information in this document.
[2023-06-07 21:56] VITALS: BP 103/64; PULSE 73; RESP 17; O2SAT 99
--- NOTE | 2023-06-07 22:19 | EDS_ITS ---
HPI History of Present Illness Chief Complaint: Syncope Informant: patient Onset/Context/Timing Onset: Today Context: Sudden Onset Timing: Waxes and wanes Quality: Heaviness Location: Substernal Worsened by: Deep breathing Relieved by: Nothing Narrative Narrative: Patient presents with syncopal episode and chest pain that occurred today. Patient states that her pain began rather suddenly. Patient states she passed out shortly after standing. Patient states she has a history of POTS but usually does not pass out completely. Patient states that after she passed out she had heaviness in her chest. Patient states it is over the substernal area. Patient states it is worse with deep breathing. Patient states nothing makes it better. Patient states she had influenza B 2 weeks ago. Patient denies any fevers or chills. Patient admits to a mild headache. [facility] Medical History Acute maxillary sinusitis, unspecified Acute pharyngitis, unspecified Anaphylaxis due to hymenoptera venom Anxiety and depression Asthma Diarrhea Encounter for screening for COVID-19 GERD (gastroesophageal reflux disease) Hay fever Headache Knee pain Migraine Palpitations POTS (postural orthostatic tachycardia syndrome) Prothrombin gene mutation Seasonal allergies Severe headache Shoulder pain Stomach ulcer Syncope and collapse URI (upper respiratory infection) Home Medications magnesium oxide 500 mg capsule 500 mg PO DAILY 08/01/18 [History Last Taken Unknown] buspirone 15 mg tablet 30 mg PO BID depression 10/30/18 [History Last Taken Unknown] vitamin B complex (B Complex 1 tablet) 1 tab PO Q24H supplementation 05/08/19 [History Last Taken Unknown] nebivolol 10 mg tablet 5 mg (1/2 x 10 mg) PO BID POTS #90 tabs 07/04/19 [Rx Last Taken Unknown] desvenlafaxine succinate 25 mg tablet,extended release 24 hr (Pristiq) 75 mg PO DAILY 11/29/20 [History Last Taken Unknown] fludrocortisone 0.1 mg tablet 0.2 mg PO DAILY 11/29/20 [History Last Taken Unknown] cetirizine 10 mg capsule (Zyrtec) 10 mg PO DAILY #30 caps 01/25/21 [Rx Last Taken Unknown] bupropion HCl 150 mg tablet,12 hr sustained-release 150 mg PO DAILY 01/23/23 [History Last Taken Unknown] coenzyme Q10 100 mg capsule (CoQ-10) 100 mg PO DAILY 01/23/23 [History Last Taken Unknown] acetaminophen 500 mg capsule 1,000 mg PO Q6H PRN fever or pain 06/07/23 [History Last Taken Unknown] prednisone 10 mg tablet See Taper PO DAILY 06/07/23 [History Last Taken Unknown] Allergy/AdvReac Type Severity Reaction Status Date / Time cephalexin [From Keflex] Allergy Mild itching Verified 06/07/23 19:54 clarithromycin [From Biaxin] Allergy Hives Verified 06/07/23 19:54 fish derived Allergy Shortness Verified 06/07/23 19:54 of breath hydrocodone bitartrate Allergy Itching Verified 06/07/23 19:54 [From Vicodin] Influenza Virus Vaccines Allergy Other Verified 06/07/23 19:54 iodine Allergy Rash Verified 06/07/23 19:54 ketorolac tromethamine Allergy Shortness Verified 06/07/23 19:54 [From Toradol] of breath latex Allergy Shortness Verified 06/07/23 19:54 of breath Penicillins Allergy Shortness Verified 06/07/23 19:54 of breath shellfish derived Allergy Angioedema Verified 06/07/23 19:54 venom-honey bee Allergy Shortness Verified 06/07/23 19:54 [bee venom (honey bee)] of breath verapamil Allergy Other Verified 06/07/23 19:54 Family History Grandfather Cancer Diabetes Grandmother Heart disease CHF Father Diabetes Heart disease open heart surgery Mother Anxiety and depression Thyroid disorder Grandmother Diabetes Surgical History History of appendectomy History of tonsillectomy Hx of cholecystectomy Status post left foot surgery Social History Smoking Status: Never smoker alcohol intake: current alcohol intake frequency: holidays/special occasions only substance use type: does not use caffeine: Yes Type: carbonated beverages what type of physical activity do you participate in: other details[place] ROS ROS ED Constitutional Constitutional ED: Denies chills or fever(s) Eyes Eyes: Denies blurry vision or change in vision ENT ENT ED: Denies rhinorrhea or sore throat Cardiovascular Cardiovascular: Reports chest pain; Denies palpitations Respiratory/Chest Respiratory/Chest: Reports dyspnea; Denies cough Gastrointestinal Gastrointestinal: Denies nausea or vomiting Genitourinary Genitourinary ED: Denies dysuria or hematuria Musculoskeletal Musculoskeletal: Denies back pain or neck pain Integumentary Denies abscess or rash Neurologic Neurologic: Reports headache(s); Denies weakness Allergic/Immunologic Allergic/Immunologic ED: Denies mouth swelling or urticaria EXAM Physical Exam Const Vital Signs: 06/07/23 19:54 06/07/23 21:40 06/07/23 21:40 Temperature 97 F L Temperature Source Temporal Pulse Rate 82 Respiratory Rate 16 Respiratory Effort Short of Breath Respiratory Pattern Normal Blood Pressure 116/74 Blood Pressure Mean 88 Pulse Ox 100 Oxygen Delivery Method Room Air 06/07/23 21:56 Temperature Temperature Source Pulse Rate 73 Respiratory Rate 17 Respiratory Effort Respiratory Pattern Blood Pressure 103/64 Blood Pressure Mean 77 Pulse Ox 99 Oxygen Delivery Method Room Air Positive well nourished and well developed General Appearance ED: well developed and NAD HEENT Reports moist mucous membranes Neck supple and no JVD Chest Wall palpation of chest normal Resp normal respiratory effort and clear to auscultation bilaterally Cardio regular rate and regular rhythm GI non-tender and non-distended Palpation: soft Extremity normal to inspection General Extremety ED: Negative for edema or tenderness General Extremity: Negative for edema Neuro oriented x3, CN's II-XII intact bilaterally and no sensory deficits noted Sensorium / Orientation: alert Motor Exam: strength 5/5 throughout Psych mental status grossly normal MDM MDM MDM Narrative Medical decision making narrative: Differential diagnosis includes cardiac dysrhythmia, cardiac ischemia, pneumonia, pneumothorax, electrolyte abnormality, POTS, and anxiety. EKG will be obtained to assess for cardiac dysrhythmia and cardiac ischemia. Chest x-ray will be obtained to assess for pneumonia and pneumothorax. CBC will be obtained to assess for leukocytosis and anemia. Basic metabolic profile will be obtained to assess for electrolyte abnormality and renal function. High-sensitivity troponin will be obtained to assess for cardiac ischemia. Lab Data Attestation: I reviewed the patient's lab results. Lab results narrative: CBC was reviewed. There is a mild leukocytosis of 13.0. The remainder is within normal limits. Basic metabolic profile was reviewed and was essentially within normal limits. High-sensitivity troponin was reviewed and was normal. Labs: Laboratory Results - last hr 06/07/23 20:29 WBC 13.0 H RBC 4.71 Hgb 12.4 Hct 43.1 MCV 91.5 MCH 26.3 L MCHC 28.8 L RDW Std Deviation 47.8 H RDW Coeff of Milagros 14.1 Plt Count 231 MPV 10.2 Immature Gran % (Auto) 0.400 Neut % (Auto) 54.4 Lymph % (Auto) 36.0 [place] % (Auto) 6.8 Eos % (Auto) 1.8 Baso % (Auto) 0.6 Absolute Neuts (auto) 7.1 Absolute Lymphs (auto) 4.69 H Nucleated RBC % 0 Sodium 141 Potassium 3.6 Chloride 109 H Carbon Dioxide 27.0 Anion Gap 5 BUN 16 Creatinine 0.95 Estim Creat Clear Calc 98.96 Est GFR (MDRD) Af Amer 89 Est GFR (MDRD) Non-Af 73 BUN/Creatinine Ratio 16.8 Glucose 109 H Calcium 9.0 Troponin I High Sens 6 Radiography Chest X-Ray - ED: 1 View, Read by ED Physician, Read by Radiologist and No Acute Disease Diagnostic Testing: Clinical Impression(s) from Imaging Studies Chest X-Ray 06/07/23 20:15 IMPRESSION: Normal x-ray examination of the chest. Electronically Signed: Houston Arrieta MD at 21:30 EST , EKG Initial EKG: Attestation: I personally reviewed and interpreted this EKG as follows: Interpretation: Sinus Rhythm (69) and No Acute Injury Pattern Comments: EKG was obtained. On my independent interpretation, it showed a normal sinus rhythm with a rate of 69. ND interval, QRS interval, and QTc intervals were all normal. [place] was normal. There are no acute ST or T wave changes. Prior EKG tracings: available for review Prior: Unchanged (05/25/2023) Treatment and Re-Evaluation :: Patient was advised of her findings. Patient was feeling better on reevaluation. Patient was instructed to drink plenty of fluids. Patient was instructed to follow-up with her primary care physician in 5 to 7 days. Patient was instructed return if worse in any way. Patient understood and was agreeable with the plan. All questions were answered. Discharge Plan Triage Chief Complaint: Syncope ED Provider: Taj Pitt Dx/Rx/DC Orders Clinical Impression: Chest pain of uncertain etiology, Syncope, POTS (postural orthostatic tachycardia syndrome) Instructions: ED Chest Pain, Uncertain Cause, ED Fainting, Uncertain Cause Prescriptions: No Action buspirone 15 mg tablet 30 mg PO BID vitamin B complex [B Complex 1] Tablet 1 tab PO Q24H magnesium oxide 500 mg capsule 500 mg PO DAILY Zyrtec 10 mg capsule 10 mg PO DAILY Qty: 30 0RF desvenlafaxine succinate [Pristiq] 25 mg Tablet Extended Release 24 Hr 75 mg PO DAILY fludrocortisone 0.1 mg tablet 0.2 mg PO DAILY Patient Comments: TAKE 2 TABLETS BY MOUTH ONCE DAILY acetaminophen 500 mg capsule 1,000 mg PO Q6H PRN (Reason: fever or pain) prednisone 10 mg tablet See Taper PO DAILY Taper: Prednisone Taper 60 mg WITH BREAKFAST for 3 Days 50 mg WITH BREAKFAST for 3 Days 40 mg WITH BREAKFAST for 3 Days 30 mg WITH BREAKFAST for 3 Days 20 mg WITH BREAKFAST for 3 Days 10 mg WITH BREAKFAST for 3 Days Patient Comments: started 05/30/2023 bupropion HCl 150 mg tablet sustained-release 12 hr 150 mg PO DAILY coenzyme Q10 [CoQ-10] 100 mg capsule 100 mg PO DAILY nebivolol 10 mg tablet 5 mg PO BID Qty: 90 3RF Primary Care Provider: Allen Smart Referrals: Allen Smart MD [Primary Care Provider] - 3-5 Days Disposition Disposition: Home, Self Care
[2023-06-07 22:31] LABS: Reflex Troponin-HS? (from REC) Y
[2023-06-07 22:50] LABS: Troponin-I HS 5 pg/mL (3.0-54.0)
[2023-06-07 23:00] VITALS: BP 118/73; PULSE 68; RESP 16; O2SAT 96
[2023-06-07 23:19] VITALS: BP 117/74; PULSE 75; RESP 16; O2SAT 97
== END 2023-06-07 23:22 | disposition home or self-care (01) ==
PROVIDERS: Emergency Provider Emergency Medicine; PCP Family Medicine; Visit Provider Emergency Medicine
DX: R55 Syncope and collapse (principal); F41.8 Other specified anxiety disorders; Z79.899 Other long term (current) drug therapy; G90.A Postural orthostatic tachycardia syndrome [POTS]; J30.2 Other seasonal allergic rhinitis; Z90.49 Acquired absence of other specified parts of digestive tract; R07.9 Chest pain, unspecified
CPT/HCPCS: 71045; 80048; 84484; 85025; 93005; 99284; A4216

== ENCOUNTER 2023-12-14 10:00 | Outpatient (RCR) | payer OTHER, SELFPAY ==
--- NOTE | 2023-10-12 17:22 | HP.PTEVAL ---
Patient's Visit Information Visit Information Visit Information: JANICE GOODMAN is a 28 year old F referred to Physical Therapy by JESSICA DIAZ with a diagnosis of UNSPECIFIED INJURY OF HEAD ,CONTUSION OF UNSPECIFIED PART HEAD. Date of Evaluation: 10/12/23 Physical Therapist: Jama Hancock, PT, Cert MDT, OCS Visit Plan Frequency: 2x /Week Duration: 4 Weeks Plan: PT INTERVENTIONS MANUAL THERAPY STM/MANUAL CERVICAL TRACTION ,POSTURAL EX'S AND MODALTIES PRN Subjective Subjective: This 28 y/o female presents to physical therapy with post concussion. 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 Patient had immediate symptoms with nausea ,REYNA and developed lump on right side head on September 18 . Patient went [facility] -. Prescribed zofran and inbuprofron. Patient seen DR 1 week after injury . Placed on light duty with school 8hrs. Then 4hrs in classroom and 4 hrs in break room. Patient seen 3 days ago ,then recommended only 4 hr total days. Patient has REYNA occiput and temporal described as sharp ache. Patient has no radicular symptoms .Symptoms worse with noise ,lights . Denies nausea/dizziness ,double vision occasionally blurred vision. Sleeping good. Occasionally moving cervical spine tingling in fingers. RTW in December. RTD next week on . Patient condition affects QOL and function /job demands. 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 CERVICAL ROM: flexion WFL ,extension min loss ,rotation min loss ,lateral flexion WFL ,retraction WFL ,protrusion WFL Special Tests C/S Radiculapathy - Left Upper limb tension test: Negative C/S Radiculapathy - Right Upper limb tension test: Negative C/S Radiculapathy - Left Spurlings: Negative C/S Radiculapathy - Right Spurlings: Negative C/S Radiculapathy - Left Cervical distraction: Negative C/S Radiculapathy - Right Cervical distraction: Negative C/S Radiculapathy - Left Relief test: Negative C/S Radiculapathy - Right Relief test: Negative Sharp Navneet: Negative Vertebral Artery Test: Negative Alar Ligament Test: Negative Cervical Sitting: Protrusion - Mechanical Response: No effect Cervical Sitting: Protrusion - Symptoms During Testing: No effect Cervical Sitting: Protrusion - Symptoms After Testing: No effect Cervical Sitting: Retraction - Mechanical Response: No effect Cervical Sitting: Retraction - Symptoms During Testing: Decreases Cervical Sitting: Retraction - Symptoms After Testing: Better Comments:: REYNA Cervical Sitting: Retraction-Extension - Mechanical Response: No effect Cerv Sitting: Retraction-Extension - Symptoms During Testing: No effect Cerv Sitting: Retraction-Extension - Symptoms After Testing: No effect Cervical Sitting: Sidebend Right - Mechanical Response: No effect Cervical Sitting: Sidebend Right - Symptoms During Testing: No effect Cervical Sitting: Sidebend Right - Symptoms After Testing: No effect Cervical Sitting: Sidebend Left - Mechanical Response: No effect Cervical Sitting: Sidebend Left - Symptoms During Testing: No effect Cervical Sitting: Sidebend Left - Symptoms After Testing: No effect Cervical Sitting: Rotation Right - Mechanical Response: No effect Cervical Sitting: Rotation Right - Symptoms During Testing: No effect Cervical Sitting: Rotation Right - Symptoms After Testing: No effect Cervical Sitting: Rotation Left - Mechanical Response: No effect Cervical Sitting: Rotation Left - Symptoms During Testing: No effect Cervical Sitting: Rotation Left - Symptoms After Testing: No effect Cervical Sitting: Flexion - Mechanical Response: No effect Cervical Sitting: Flexion - Symptoms During Testing: No effect Cervical Sitting: Flexion - Symptoms After Testing: No effect Balance/Special Test Scores Oswestry Neck Score: 16 Goals Goal 1:: Patient to be MOD I with HEP Goal Time Frame: 4-6 Weeks Goal 2:: Patient to demonstrate 50% with decrease REYNA and function . Goal Time Frame: 4-6 Weeks Goal 3:: Patient to improve neck oswestry by 5 points by to improve function and work. Goal Time Frame: 4-6 Weeks Goal 4:: Patient to improve cervical ROM for function of recovery to reduce REYNA Goal Time Frame: 4-6 Weeks Rehabilitation Potential Rehabilitation Potential: Good Anticipated Interventions Patient/Client Instruction: Educate patient on: Condition and Plan of Care For the Purpose of:: To decrease pain, To increase ROM, To improve muscle performance and motor function, To improve ability to perform ADL's, To increase tolerance to activity/condition/position, To improve ability of physical actions for home/community/work/leisure, To improve health of tissue, To decrease soft tissue restriction, To increase flexibility/ROM and To reduce risk of recurrence Therapeutic Exercise to Include: Power training, Postural training, Flexibilty training, Active ROM and Yennifer Exercises For the Purpose of:: To decrease pain, To increase ROM, To improve nutrient delivery to tissue, To increase oxygenation perfusion, To improve muscle performance and motor function, To improve ability to perform ADL's, To improve health of tissue, To decrease soft tissue restriction, To increase flexibility/ROM and To improve balance TENS: Yes IF ES: Yes Cryotherapy (ice pack, ice massage): Yes Thermo therapy (hot pack): Yes For the Purpose of:: To decrease pain, To increase ROM, To improve nutrient delivery to tissue and To increase oxygenation perfusion Text: Thank you for the opportunity to evaluate your patient. For Medicare and Medicare HMO plans, please review the plan of care and approve it. It will need to be FAXED BACK to us at [phone] for Medicare purposes. For Medicare only, by signing this I certify the plan of care. Please let me know if there are questions or concerns regarding this plan of care. Physician Signature: Date:
--- NOTE | 2023-10-12 17:26 | HP.PTEVAL_ITS ---
Patient's Visit Information Visit Information Visit Information: JANICE GOODMAN is a 28 year old F referred to Physical Therapy by JESSICA DIAZ with a diagnosis of UNSPECIFIED INJURY OF HEAD ,CONTUSION OF UNSPECIFIED PART HEAD. Date of Evaluation: 10/12/23 Physical Therapist: Jama Hancock, PT, Cert MDT, OCS Visit Plan Frequency: 2-3x /Week Duration: 4 Weeks Plan: PT INTERVENTIONS MANUAL THERAPY STM/MANUAL CERVICAL TRACTION ,POSTURAL EX'S AND MODALTIES PRN Subjective Subjective: This 28 y/o female presents to physical therapy with post c oncussion. 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 Patient had immediate symptoms with nausea ,REYNA and developed lump on right side head on September 18 . Patient went [facility] -. Prescribed zofran and inbuprofron. Patient seen DR 1 week after injury . Placed on light duty with school 8hrs. Then 4hrs in classroom and 4 hrs in break room. Patient seen 3 days ago ,then recommended only 4 hr total days. Patient has REYNA occiput and temporal described as sharp ache. Patient has no radicular symptoms .Symptoms worse with noise ,lights . Denies nausea/dizziness ,double vision occasionally blurred vision. Sleeping good. Occasionally moving cervical spine tingling in fingers. RTW in December. RTD next week on . Patient condition affects QOL and function /job demands. 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 CERVICAL ROM: flexion WFL ,extension min loss ,rotation min loss ,lateral flexion WFL ,retraction WFL ,protrusion WFL Special Tests C/S Radiculapathy - Left Upper limb tension test: Negative C/S Radiculapathy - Right Upper limb tension test: Negative C/S Radiculapathy - Left Spurlings: Negative C/S Radiculapathy - Right Spurlings: Negative C/S Radiculapathy - Left Cervical distraction: Negative C/S Radiculapathy - Right Cervical distraction: Negative C/S Radiculapathy - Left Relief test: Negative C/S Radiculapathy - Right Relief test: Negative Sharp Navneet: Negative Vertebral Artery Test: Negative Alar Ligament Test: Negative Cervical Sitting: Protrusion - Mechanical Response: No effect Cervical Sitting: Protrusion - Symptoms During Testing: No effect Cervical Sitting: Protrusion - Symptoms After Testing: No effect Cervical Sitting: Retraction - Mechanical Response: No effect Cervical Sitting: Retraction - Symptoms During Testing: Decreases Cervical Sitting: Retraction - Symptoms After Testing: Better Comments:: REYNA Cervical Sitting: Retraction-Extension - Mechanical Response: No effect Cerv Sitting: Retraction-Extension - Symptoms During Testing: No effect Cerv Sitting: Retraction-Extension - Symptoms After Testing: No effect Cervical Sitting: Sidebend Right - Mechanical Response: No effect Cervical Sitting: Sidebend Right - Symptoms During Testing: No effect Cervical Sitting: Sidebend Right - Symptoms After Testing: No effect Cervical Sitting: Sidebend Left - Mechanical Response: No effect Cervical Sitting: Sidebend Left - Symptoms During Testing: No effect Cervical Sitting: Sidebend Left - Symptoms After Testing: No effect Cervical Sitting: Rotation Right - Mechanical Response: No effect Cervical Sitting: Rotation Right - Symptoms During Testing: No effect Cervical Sitting: Rotation Right - Symptoms After Testing: No effect Cervical Sitting: Rotation Left - Mechanical Response: No effect Cervical Sitting: Rotation Left - Symptoms During Testing: No effect Cervical Sitting: Rotation Left - Symptoms After Testing: No effect Cervical Sitting: Flexion - Mechanical Response: No effect Cervical Sitting: Flexion - Symptoms During Testing: No effect Cervical Sitting: Flexion - Symptoms After Testing: No effect Balance/Special Test Scores Oswestry Neck Score: 16 Goals Goal 1:: Patient to be MOD I with HEP Goal Time Frame: 4-6 Weeks Goal 2:: Patient to demonstrate 50% with decrease REYNA and function . Goal Time Frame: 4-6 Weeks Goal 3:: Patient to improve neck oswestry by 5 points by to improve function and work. Goal Time Frame: 4-6 Weeks Goal 4:: Patient to improve cervical ROM for function of recovery to reduce REYNA Goal Time Frame: 4-6 Weeks Rehabilitation Potential Rehabilitation Potential: Good Anticipated Interventions Patient/Client Instruction: Educate patient on: Condition and Plan of Care For the Purpose of:: To decrease pain, To increase ROM, To improve muscle performance and motor function, To improve ability to perform ADL's, To increase tolerance to activity/condition/position, To improve ability of physical actions for home/community/work/leisure, To improve health of tissue, To decrease soft tissue restriction, To increase flexibility/ROM and To reduce risk of recurrence Therapeutic Exercise to Include: Power training, Postural training, Flexibilty training, Active ROM and Yennifer Exercises For the Purpose of:: To decrease pain, To increase ROM, To improve nutrient delivery to tissue, To increase oxygenation perfusion, To improve muscle performance and motor function, To improve ability to perform ADL's, To improve health of tissue, To decrease soft tissue restriction, To increase flexibility/ROM and To improve balance TENS: Yes IF ES: Yes Cryotherapy (ice pack, ice massage): Yes Thermo therapy (hot pack): Yes For the Purpose of:: To decrease pain, To increase ROM, To improve nutrient delivery to tissue and To increase oxygenation perfusion Text: Thank you for the opportunity to evaluate your patient. For Medicare and Medicare HMO plans, please review the plan of care and approve it. It will need to be FAXED BACK to us at [phone] for Medicare purposes. For Medicare only, by signing this I certify the plan of care. Please let me know if there are questions or concerns regarding this plan of care. Physician Signature: Date:
--- NOTE | 2023-11-11 13:59 | HP.PTDCSUM ---
Discharge Summary D/C summary: It has been my pleasure to treat JANICE GOODMAN referred by JESSICA DIAZ, with the diagnosis of UNSPECIFIED INJURY OF HEAD ,CONTUSION OF UNSPECIFIED PART HEAD for a total of 9 visit(s). Discharge Date: 11/11/23 Please see the following information for a summary of their discharge status. Subjective Subjective: Pt. reports that her HAs seem to be doing better, but is now feeling a little bit more imbalance. She has had 2 odd falls, and 2 occurrences where she felt more off balance. No issues currently. Pt. to see physician on Tuesday11/15/23. Pain Bilateral Head: Pain Intensity (Out of 10): 3 R side of head: Pain Intensity (Out of 10): 3 Overall Improvement % Improvement: 80 Objective Objective/Function: She had some questions about falling over her pig, but is now questioning about where the pig cut her off or is she just fell. She does have a scrap on her leg, but just a small abrasion. ROM: flexion- full ROM with some pulling at posterior neck, extension full ROM without issues, rotation full bilaterally without issues. MMT: no myotomal weakness noted. Pt. does report some dizziness feeling at times and very in frequent blurred vision. At this point in time I would recommend following back up with physician to determine best course of action. Her symptoms do seem to be improving. Goals Goal 1:: Patient to be MOD I with HEP Goal Progress: Goal Met Goal 2:: Patient to demonstrate 50% with decrease REYNA and function . Goal Progress: Goal Met Goal 3:: Patient to improve neck oswestry by 5 points by to improve function and work. Goal Progress: Progressing Goal 4:: Patient to improve cervical ROM for function of recovery to reduce REYNA Goal Progress: Goal Met Plan Plan: DC back to physician at this point in time. D/C Information d/c sentence: If there are questions or concerns regarding this patient's physical therapy, please feel free to call me at [phone]. Thank you for the referral of this patient. Sincerely, Dilip Teran Sipos, DPT Balance/Gait/Functional tests Balance/Special Test Scores Oswestry Neck Score: 6 Improvement % Improvement: 80
--- NOTE | 2023-11-23 14:59 | HP.PTREVAL_ITS ---
Re-Evaluation Intro: JESSICA DIAZ, It has been my pleasure to treat JANICE GOODMAN over the last 10 visits for UNSPECIFIED INJURY OF HEAD ,CONTUSION OF UNSPECIFIED PART HEAD. Please see the progress note below for an update on the physical therapy plan of care! Subjective Subjective: Pt. reports continued REYNA on the R side of her head. She reports being 4/10 currently. Pt. did reports having another fall over the weekend. Unsure why, legs just ethan give out. No injuries noted. No loss of consciousness noted. Pt. reports no dizziness currently. Pt. saw specialist for her post concussion symptoms which she is to follow up with in months if not improving. Objective Objective/Function: normal saccades, normal lateral and horizontal eye tracking noted. No nystagmus noted. She reports a little blurry vision with looking up during saccades. FGA: . Pt. did have some dizziness with looking up, but alleviates quickly. Bending over, with elevations changes x10- pt. reports having off feeling, but a lleviated with in 30 seconds. She reports having a few falling episodes over the past 2 weeks. She reports that her legs just give out on her. She did not have any episodes at PT this date. Overall all balance is decent, I would like her to do better with her eyes closed and with head level changes. Both seem to cause on symptoms and off feeling. I would like to work on some higher level balance with eye changes. Also changes in head level to produce symptoms and work on habituation exercises. Plan Plan Plan: I reopened her case as she returned from physician with new order to work on her balance and concussion issues after having a few imbalance episodes. Start with balance exercises on foam and with eyes closed, add in eye movements especially over head. Add in dynamic mobility with eye movements over head. Bending over and back habituation exercises. Progress to HEP. Balance/Gait/Functional tests Balance/Special Test Scores Functional Gait Assessment Score: 27 % Disability: 10.0000 CATSIB Score (Max score 120 seconds): 110 Oswestry Neck Score: 6 Goals Goals Goal 1:: Patient to be MOD I with HEP Goal Time Frame: 4-6 Weeks Goal Progress: Goal Met Goal 2:: Patient to demonstrate 50% with decrease REYNA and function . Goal Time Frame: 4-6 Weeks Goal Progress: Goal Met Goal 3:: Patient to improve neck oswestry by 5 points by to improve function and work. Goal Time Frame: 4-6 Weeks Goal Progress: Progressing Goal 4:: Patient to improve cervical ROM for function of recovery to reduce REYNA Goal Time Frame: 4-6 Weeks Goal Progress: Goal Met Goal 5:: LTG: Pt. to score 30/30 on LFG indicating minimal risk for falls. Goal Time Frame: 4-6 Weeks Goal Progress: Progressing Goal 6:: LTG: Pt. to be able to repeatedly bend over and back without reports of increased dizziness/off feeling. Goal Time Frame: 4-6 Weeks Goal Progress: Progressing Anticipated Interventions Anticipated Interventions Patient/Client Instruction: Educate patient on: Condition and Plan of Care For the Purpose of:: To decrease pain, To increase ROM, To improve muscle performance and motor function, To improve ability to perform ADL's, To increase tolerance to activity/condition/position, To improve ability of physical actions for home/community/work/leisure, To improve health of tissue, To decrease soft tissue restriction, To increase flexibility/ROM and To reduce risk of recurrence Therapeutic Exercise to Include: Power training, Postural training, Flexibilty training, Active ROM and Yennifer Exercises For the Purpose of:: To decrease pain, To increase ROM, To improve nutrient delivery to tissue, To increase oxygenation perfusion, To improve muscle performance and motor function, To improve ability to perform ADL's, To improve health of tissue, To decrease soft tissue restriction, To increase flexibility/ROM and To improve balance TENS: Yes IF ES: Yes Cryotherapy (ice pack, ice massage): Yes Thermo therapy (hot pack): Yes For the Purpose of:: To decrease pain, To increase ROM, To improve nutrient delivery to tissue and To increase oxygenation perfusion Re-Evaluation Ending Re-evaluation ending: Please do not hesitate to contact me at [phone] by phone or if you have questions or concerns regarding this new plan of care! Sincerely, Dilip Kohli DPT
--- NOTE | 2023-12-30 08:34 | HP.PT.NRP ---
Patient Information Patient Information: JANICE GOODMAN was seen in my office for initial evaluation on 10/12/23. The following Plan of Care was established for this patient: POC Established Initial Frequency: 2-3x /Week Initial Duration: 4 Weeks Anticipated Interventions Patient/Client Instruction: Educate patient on: Condition and Plan of Care For the Purpose of:: To decrease pain, To increase ROM, To improve muscle performance and motor function, To improve ability to perform ADL's, To increase tolerance to activity/condition/position, To improve ability of physical actions for home/community/work/leisure, To improve health of tissue, To decrease soft tissue restriction, To increase flexibility/ROM and To reduce risk of recurrence Therapeutic Exercise to Include: Power training, Postural training, Flexibilty training, Active ROM and Yennifer Exercises For the Purpose of:: To decrease pain, To increase ROM, To improve nutrient delivery to tissue, To increase oxygenation perfusion, To improve muscle performance and motor function, To improve ability to perform ADL's, To improve health of tissue, To decrease soft tissue restriction, To increase flexibility/ROM and To improve balance TENS: Yes IF ES: Yes Cryotherapy (ice pack, ice massage): Yes Thermo therapy (hot pack): Yes For the Purpose of:: To decrease pain, To increase ROM, To improve nutrient delivery to tissue and To increase oxygenation perfusion Last Seen Last Seen: This patient was last seen in our office 12/14/23. Pertinent comments regarding their Physical therapy will appear below: Pt. was seen in PT after her concussion. Pt. was overall doing well. During this second stint in PT she has cancelled and missed several appointments and was only seen for 1 follow up which was on 12/14/23. Pt. will be DC from PT at this point in time. At this point I will be discontinuing this patient from physical therapy. I would be happy to see this patient again in the future if found appropriate by the physician. Thank you! Dilip Kohli, DPT Balance/Gait/Functional tests Balance/Special Test Scores Functional Gait Assessment Score: 27 % Disability: 10.0000 CATSIB Score (Max score 120 seconds): 110 Oswestry Neck Score: 6
== END 2023-12-14 19:00 | disposition home or self-care (01) ==
LOC: PT 10:00
PROVIDERS: PCP Family Medicine
DX: S09.90XD Unspecified injury of head, subsequent encounter (principal); S00.93XD Contusion of unspecified part of head, subsequent encounter
CPT/HCPCS: 97110; 97140; 97161; 97530

== ENCOUNTER → 2023-12-29 | Outpatient (CLI) | payer OTHER, SELFPAY ==
--- NOTE | 2023-12-29 16:04 | RAD_ITS ---
INDICATION: Left knee pain EXAMINATION/TECHNIQUE: X-RAY - LEFT XR Knee Complete 4 Views or More 4 VIEWS COMPARISON: 08/12/2012 FINDINGS: SOFT TISSUES: No soft tissue swelling or gas. No radiopaque foreign body. BONES/JOINTS: No acute fracture. Joint spaces anatomically aligned. No sclerotic or destructive changes observed. RAD/Knee 4 or More Views IMPRESSION: Unremarkable study. Electronically Signed: Kerwin Almanzar MD at 17:18 EDT ,
== END | disposition home or self-care (01) ==
LOC: MTRAD 16:03
PROVIDERS: PCP Family Medicine; Referring Provider Physician Assistant Surgical; Visit Provider Physician Assistant Surgical
DX: S86.912A Strain of unspecified muscle(s) and tendon(s) at lower leg level, left leg, initial encounter (principal)
CPT/HCPCS: 73564

== ENCOUNTER → 2024-01-24 | Outpatient (CLI) | payer OTHER, SELFPAY ==
[2024-01-24 17:53] LABS: Absolute Lymphocyte Count 2.19 X10^3/uL (0.83-4.51); Absolute Neutrophil Count 4.7 X10^3/uL (2.0-7.7); Basophil# 0.02 X10^3/uL; Basophil% 0.3 % (0-1); Eosinophils% 3.9 % (0-5); Hematocrit 37.5 % (37-47); Hemoglobin 11.8 g/dL (12.0-15.0); Lymphocyte # 2.19 X10^3/ul (0.83-4.51); Lymphocyte % 28.4 % (19-41); Mean Corp Hgb Conc 31.5 g/dL (32-36); Mean Corpuscular Hgb 26.3 pg (27.0-32.0); Mean Corpuscular Volume 83.7 fL (81-99); Mean Platelet Vol. 10.8 fl (6.2-12.0); Monocyte# 0.52 X10^3/uL; Monocyte% 6.8 % (0-10); NRBC Flagged by Analyzer 0 % (0-5); Neutrophil # 4.66 X10^3/uL (2.7-7.7); Neutrophil % 60.5 % (47-70); Platelet Count 195 K/mm3 (150-450); RBC Distribution Width CV 13.6 % (11.6-14.6); RBC Distribution Width SD 41.9 fl (35.1-43.9); Red Blood Count 4.48 M/mm3 (4.2-5.4); White Blood Count 7.7 K/mm3 (4.4-11.0)
[2024-01-24 18:17] LABS: Erythrocyte Sedimentation Rate 7 mm/hr (0-30)
[2024-01-24 18:39] LABS: CRP < 2.90 mg/L (0.0-3.0); Uric Acid 5.1 mg/dL (2.6-6.0)
[2024-01-26 14:10] LABS: ANTINUCLEAR ANTIBODIES DIRECT Negative (Negative)
== END | disposition home or self-care (01) ==
LOC: MTLAB 15:38
PROVIDERS: PCP Family Medicine; Referring Provider Student in an Organized Health Care Education/Training Program; Visit Provider Student in an Organized Health Care Education/Training Program
DX: M25.462 Effusion, left knee (principal)
CPT/HCPCS: 36415; 84550; 85025; 85652; 86038; 86140; 86431

== ENCOUNTER → 2024-09-03 | Outpatient (CLI) | payer OTHER, SELFPAY | END | disposition home or self-care (01) | LOC: LABSPEC 08:26 | PROVIDERS: PCP Family Medicine; Visit Provider Physician Assistant Medical | DX: R30.0 Dysuria (principal) | CPT/HCPCS: 87077; 87086; 87088; 87186 ==

== ENCOUNTER → 2024-09-27 | Outpatient (CLI) | payer OTHER, SELFPAY | END | disposition home or self-care (01) | LOC: LABSPEC 16:37 | PROVIDERS: PCP Family Medicine | DX: N89.8 Other specified noninflammatory disorders of vagina (principal) | CPT/HCPCS: 87491; 87591 ==